=== PATIENT | male | born 1990 | race Two or more races ===

== ENCOUNTER 2017-02-23 11:34 | Inpatient (IN) | payer OTHER, MEDICAID ==
[2017-02-23 13:02] LABS: Add Diff/Slide Review? Slide Review Added; Comments Flag Yes; Hematocrit 44 % (42-52); Mean Corpuscular HGB Conc 34 g/dl (31-36); Mean Corpuscular Hemoglobin 30 pg (27-31); Mean Corpuscular Volume 88 fL (80-94); Mean Platelet Volume 8 um3 (7.4-10.4); Red Blood Count 4.98 10^6/ul (4.0-5.4); Red Cell Distribution Width 12 % (10.5-15); White Blood Count 15.6 10^3/ul (3.5-10.8)
[2017-02-23] MEDS ORDERED: hydrOXYzine HCL TAB* 25 MG PO ONE (13:13)
[2017-02-23 13:14] LABS: Urine Bacteria Absent (Absent); Urine Bilirubin Negative (Negative); Urine Glucose Negative (Negative); Urine Nitrite Negative (Negative)
[2017-02-23] MEDS ORDERED: Acetaminophen TAB* 325 MG PO ONE (13:16)
[2017-02-23 13:18] LABS: ALT 112 U/L (7-52); AST 68 U/L (13-39); Albumin 4.7 g/dL (3.2-5.2); Alkaline Phosphatase 60 U/L (34-104); Anion Gap 9 mmol/L (2-11); Blood Urea Nitrogen 15 mg/dL (6-24); CO2 Carbon Dioxide 22 mmol/L (22-32); Calcium 9.9 mg/dL (8.6-10.3); Chloride 104 mmol/L (101-111); EGFR African American 99.6 (>60); EGFR Non-African American 77.5 (>60); Globulin 2.9 g/dL (2-4); Glucose 123 mg/dL (70-100); Potassium 3.7 mmol/L (3.5-5.0); Sodium 135 mmol/L (133-145); Total Protein 7.6 g/dL (6.4-8.9)
--- NOTE | 2017-02-23 13:19 | ED ---
Psychiatric Complaint - HPI Summary HPI Summary: 26 male presents to ED by police after finding him laying in the middle of the road. Patient then began expressing suicidal thoughts and then tried to run from police. Denies any pain or complaints other than headache at this time. States he usually takes medication for his bipolar/anxiety/depression + psych history however has been out of it and not taking it. Denies any alcohol or drug use after being asked a few times. Denies homicidal thoughts, hallucinations and hearing voices. Patient has not taken any medication today, states he takes Risperdal 4mg. Also state he has a hard time concentrating. Denies chest pain, difficulty breathing, abdominal pain, nausea and vomiting. Denies fever/chills, sore throat. Admits to cough sometimes productive with nasal congestion. No other complaints, just want his medications refilled as he is feeling anxious/depressed and having suicidal thoughts. Did not express a plan. Denies homicidal thoughts. Difficult historian. No other known PMHx. Used to have outpatient therapy but has not had any recently. Denies injury/trauma. Does use cigarettes. No recent long distance travel or calf pain/swelling. Also of note is 1-2 days of insomnia, per patient. - History Of Current Complaint Chief Complaint: EDMentalHealth Time Seen by Provider: 02/23/17 11:51 Hx Obtained From: Patient, Other: - police Onset/Duration: Gradual Onset, Lasting Weeks, Still Present, Worse Since Timing: Constant Character: Depressed, Anxious Aggravating Factor(s): Medication Non-compliance Alleviating Factor(s): Medication, Counseling Related History: Positive For: Prior Psychiatric Issues Has Suicidal: Reports: Thoughts. Denies: With A Plan, Demonstrates Gesture Has Homicidal: Denies: Thoughts, With A Plan Recent Stressor(s): not taking medication, patient did not express other stressors - Risk Factor(s) Completed Suicide Risk Factors: Male, White Wallisian - Allergies/Home Medications Allergies/Adverse Reactions: Allergies Allergy/AdvReac Type Severity Reaction Status Date / Time Haloperidol [From Haldol] Allergy Unknown Verified 02/23/17 11:40 Reaction Details PMH/Surg Hx/FS Hx/Imm Hx Endocrine/Hematology History: Denies: Hx Diabetes Cardiovascular History: Denies: Hx Hypertension Respiratory History: Denies: Hx Asthma Psychiatric History: Reports: Hx Depression, Hx Inpatient Treatment, Hx Community Mental Health Tx, Hx Schizophrenia, Hx Suicide Attempt, Hx of Violent Episodes Against Others, Hx Substance Abuse Denies: Hx Eating Disorder - Surgical History Surgery Procedure, Year, and Place: n/a - Immunization History Date of Tetanus Vaccine: unk Date of Influenza Vaccine: unk Immunizations Up to Date: Yes Infectious Disease History: No Infectious Disease History: Reports: Hx Hepatitis - HEP C+ Denies: Traveled Outside the [place] in Last 30 Days - Family History Known Family History: Positive: None, Other - mental health disorders - Social History Alcohol Use: None Alcohol Amount: quit drinking 2 months ago Hx Substance Use: Yes Substance Use Type: Reports: None Substance Use Comment - Amount & Last Used: quit heroin 3 months ago Hx Tobacco Use: Yes Smoking Status (MU): Light Every Day Tobacco Smoker Type: Cigarettes Have You Smoked in the Last Year: No Review of Systems Constitutional: Negative Eyes: Negative ENT: Negative Cardiovascular: Negative Positive: Cough Gastrointestinal: Negative Genitourinary: Negative Musculoskeletal: Negative Positive: Headache Positive: Anxious, Depressed, Other - suicidal ideation All Other Systems Reviewed And Are Negative: Yes Physical Exam Triage Information Reviewed: Yes Vital Signs On Initial Exam: Initial Vitals Temp Pulse Resp BP Pulse Ox 99.2 F 135 20 152/99 98 02/23/17 11:39 02/23/17 11:39 02/23/17 11:39 02/23/17 11:39 02/23/17 11:39 tachycardia and BP noted. improved to 100bpm and 139/70 Vital Signs Reviewed: Yes Appearance: Positive: Well-Appearing, No Pain Distress, Well-Nourished Skin: Positive: Warm, Skin Color Reflects Adequate Perfusion, Dry, Other - abrasion on foot noted. Negative: Cold, Numb, Cyanosis @, Jaundiced, Pale, Erythema @ Head/Face: Positive: Normal Head/Face Inspection Eyes: Positive: Normal, EOMI, ANSELMO, Conjunctiva Clear ENT: Positive: Hearing grossly normal, Pharynx normal, Nasal congestion, TMs normal, Uvula midline. Negative: TM bulging, TM dull, TM red, Tonsillar swelling, Tonsillar exudate Dental: Positive: Percussion Tenderness @ - maxillary b/l. Negative: Cervical Lymphadenopathy Neck: Positive: Supple, Nontender, No Lymphadenopathy Respiratory/Lung Sounds: Positive: Clear to Auscultation, Breath Sounds Present. Negative: Rales, Rhonchi, Wheezes Cardiovascular: Positive: Normal, RRR, Pulses are Symmetrical in both Upper and Lower Extremities. Negative: Murmur, Rub Abdomen Description: Positive: Nontender, No Organomegaly, Soft Bowel Sounds: Positive: Present Musculoskeletal: Positive: Normal, Strength/ROM Intact. Negative: Limited @, Interruption @, Pain @ Neurological: Positive: Normal, Sensory/Motor Intact, Alert, Oriented to Person Place, Time, CN Intact II-III, Reflexes Intact, NV Bundle Intact Distally, Normal Gait, Facial Symmetry, Speech Normal Psychiatric: Positive: Anxious - appears distracted, flat affect, difficult historian - Willa Coma Scale Best Eye Response: 4 - Spontaneous Best Motor Response: 6 - Obeys Commands Best Verbal Response: 4 - Confused Coma Scale Total: 15 Diagnostics - Vital Signs Vital Signs Temp Pulse Resp BP Pulse Ox 02/23/17 12:00 118 154/84 96 02/23/17 11:51 126 28 96 02/23/17 11:50 135/81 02/23/17 11:39 99.2 F 135 20 152/99 98 - Laboratory Lab Results: Lab Results 02/23/17 Range/Units 12:50 WBC 15.6 H (3.5-10.8) 10^3/ul RBC 4.98 (4.0-5.4) 10^6/ul Hgb 15.0 (14.0-18.0) g/dl Hct 44 (42-52) % MCV 88 (80-94) fL MCH 30 (27-31) pg MCHC 34 (31-36) g/dl RDW 12 (10.5-15) % Plt Count 255 (150-450) 10^3/ul MPV 8 (7.4-10.4) um3 Neut % (Auto) 85.1 H (38-83) % Lymph % (Auto) 7.6 L (25-47) % [place] % (Auto) 6.8 (1-9) % Eos % (Auto) 0.1 (0-6) % Baso % (Auto) 0.4 (0-2) % Absolute Neuts (auto) 13.3 H (1.5-7.7) 10^3/ul Absolute Lymphs (auto) 1.2 (1.0-4.8) 10^3/ul Absolute Monos (auto) 1.1 H (0-0.8) 10^3/ul Absolute Eos (auto) 0 (0-0.6) 10^3/ul Absolute Basos (auto) 0.1 (0-0.2) 10^3/ul Absolute Nucleated RBC 0.01 10^3/ul Nucleated RBC % 0 Result Diagrams: 02/23/17 12:50 02/23/17 12:50 Lab Statement: Any lab studies that have been ordered have been reviewed, and results considered in the medical decision making process. - Radiology chest Xray Interpretation: No Acute Changes - NO EVIDENCE FOR ACTIVE CARDIOPULMONARY DISEASE. Radiology Interpretation Completed By: Radiologist - and myself - EKG EKG Cardiac Rate: NL EKG Rhythm: Sinus Rhythm ST Segment: Normal Ectopy: None EKG Interpretation: NSR, normal early repol pattern slight ST elevation EKG Comparison: No Significant Change Re-Evaluation - Re-Evaluation First Eval Re-Evaluation Time: 14:20 Change: Unchanged - updated on labs and imaging results. still without complaint. will give risperdal. Course/Dx - Course Course Of Treatment: labs and urinalysis obtained. chest xray and EKG obtained due to patient complaint of cough, elevated WBC with left shift and vital signs upon arrival. labs unremarkable other than WBC elevation with left shift. normal urinalysis. EKG NSR and no changes from previous taken EKG from 2012. given tylenol for headache and atarax and then ativan to help with anxiety. also given prescribed dose of risperdal. No drug use present in urine. normal chest xray. due to patient white count elevation with left shift, complaint of sinus pressure and cough, and no other complaints or findings, will treat with augmentin for sinusitis/URI 875mg BID [id number]. Continue tylenol and ibuprofen for fever. no concern for other etiology at this time as no complaints and no PE findings. patient was cleared for mental health evaluation. patient will be signed out to Grace Bahena PA-C at shift change. pending psych eval and disposition. - Differential Dx/Clinical Impression Differential Diagnosis/HQI/PQRI: Positive: Acute Psychosis, Anxiety, Bipolar Disorder, Depression, Suicide Attempt, Suicidal Ideation, Other - URI, bronchitis, pneumonia, sinusitis Provider Diagnosis: Suicidal ideation, Sinusitis, Upper respiratory infection - Physician Notifications Discussed Care Of Patient With: Grace SHIPLEY at shift change Patient Is Medically Stable For: Psych Evaluation Discharge - Discharge Plan Condition: Stable Disposition: OTHER Discharge Disposition Comment: signed out to Grace Bahena PA-C at shift change pending psych eval and dispo Referrals: Non Staff,Doctor [Primary Care Provider] - Additional Instructions: Take Augmentin 875mg twice daily for 10 days. Continue tylenol/ibuprofen as needed for fever.
[2017-02-23 13:27] LABS: Acetaminophen < 15 mcg/mL; Alcohol < 10 mg/dL (<10); Salicylate < 2.50 mg/dL (<30)
[2017-02-23 13:38] LABS: Benzodiazepine Urine Screen None Detected (None Detect)
[2017-02-23 13:42] LABS: TSH (Thyroid Stimulating Horm) 0.95 mcIU/mL (0.34-5.60)
--- NOTE | 2017-02-23 14:06 | RAD ---
INDICATION: Cough and leukocytosis. COMPARISON: There are no prior studies available for comparison. TECHNIQUE: Dual-energy PA and lateral views of the chest were obtained. FINDINGS: The heart is within normal limits in size. Mediastinal and hilar contours appear within normal limits. The lungs are clear. No pleural effusion is present. IMPRESSION: NO EVIDENCE FOR ACTIVE CARDIOPULMONARY DISEASE.
[2017-02-23] MEDS ORDERED: Amoxicillin/Clavulanate TAB* 500 MG PO ONE (14:16)
[2017-02-23] MEDS ORDERED: risperiDONE TAB* 2 MG PO ONE (14:16)
[2017-02-23] MEDS ORDERED: LORazepam TAB(*) 1 MG PO ONE (14:22)
[2017-02-23] MEDS ORDERED: risperiDONE TAB* 1 MG ONE (14:25)
[2017-02-23 14:49] LABS: C Reactive Protein 3.93 mg/L (< 5.00)
[2017-02-23] MEDS ORDERED: Mouth Piece, Nicotine* 1 EACH CARTRIDGE INH SCH (22:39)
[2017-02-23] MEDS ORDERED: Nicotine GUM* 2 MG PO PRN (22:39)
[2017-02-23] MEDS ORDERED: Nicotine Patch Removal NOTE PATCH OFF SCH (22:39)
[2017-02-23] MEDS ORDERED: Acetaminophen TAB* 325 MG PO PRN (22:39)
[2017-02-23] MEDS ORDERED: Al Hydrox/Mg Hydrox/Simet LIQ* 30 ML UDC PO PRN (22:39)
[2017-02-23] MEDS: Amoxicillin PO (*) 500 MG CAP PO SCH (23:18)
[2017-02-24] MEDS: risperiDONE TAB* 2 MG PO SCH (09:37)
[2017-02-24] MEDS: Amoxicillin PO (*) 500 MG CAP PO SCH ×2 (09:37→20:49)
[2017-02-24] MEDS: Vitamin THERAPEUTIC TAB PO SCH (09:37)
[2017-02-24] MEDS: Nicotine PATCH 21 MG/24 HR* PATCH TRANSDERM SCH (10:27)
[2017-02-24] MEDS: Nicotine Inhaler* 10 MG AMP INH PRN ×2 (14:50→20:49)
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
[2017-02-25] MEDS ORDERED: diPHENhydraMINE PO* 50 MG PO PRN (01:21)
[2017-02-25 08:37] VITALS: BP 102/54
[2017-02-25] MEDS: Amoxicillin PO (*) 500 MG CAP PO SCH (09:09)
[2017-02-25] MEDS: Nicotine Inhaler* 10 MG AMP INH PRN ×2 (09:09→11:22)
[2017-02-25] MEDS: Vitamin THERAPEUTIC TAB PO SCH (09:10)
[2017-02-25] MEDS: Nicotine PATCH 21 MG/24 HR* PATCH TRANSDERM SCH (09:10)
[2017-02-25] MEDS: risperiDONE TAB* 2 MG PO SCH (09:10)
--- NOTE | 2017-02-25 11:43 | PN ---
[facility]: Group Therapy Note - Service Type Service Type: 78025 Group Psychotherapy - Cognitive Behavioral Group Therapy ( CBT):Patient attended CBT programming this morning and presented with flat affect that did not vary with discussion. Although responsive to direct prompts to respond to questions, patient did not engage in spontaneous conversation.
--- NOTE | 2017-02-26 05:44 | DS ---
DISCHARGE SUMMARY: DATE OF ADMISSION: 02/23/17 DATE OF DISCHARGE: 02/25/17 DISCHARGE DIAGNOSES: [place] I: 1. Schizophrenia. 2. Cannabis use disorder, in sustained remission. [place] II: Antisocial personality traits by history. [place] III: Hepatitis C, history of knee surgery. [place] IV: Severe access to health care stressors. [place] V: At the time of admission was 35 and at the time of discharge was 60. CONDITION AT THE TIME OF DISCHARGE: Improved. The patient is no longer paranoid or demonstrating an y signs of inability to care for himself. In fact, he has been safe on all checks participating in [place] and [place] activities. He has been eating, drinking, bathing, and taking medications appropria tely. He is tolerating his risperidone therapy quite well and is agreeable to continuing to take thi s on an outpatient basis. The patient has a job at a local [employer] and indicates that he has to work a shift at 4 o'clock this afternoon. We have confirmed that he is no longer receiving services through the [facility] but is agreeable to receiving followup care at the [facility] and we have made appropriate referrals. The patient is appropriate ly requesting discharge and we feel that further inpatient care would be of low utility and we furthe r feel that the patient could be successfully treated in a less restrictive setting. MENTAL STATUS EXAM: At the time of discharge, the patient is a young, dark skinned white male with d ark brown hair, wearing T-shirt and jeans. He is calm, cooperative, and easy to establish a rapport with. Speech has a normal rate, tone, and volume and there is no further evidence of latency. Eye c ontact is good. Mood is euthymic with a full affect. Thought process is linear and goal directed. T hought content is significant for his desire to be discharged this afternoon so that he can make it t o his [employer] shift. He denies suicidal or homicidal ideations. He denies auditory or visual h allucinations. There does not appear to be any current evidence of psychotic thought process. Insig ht and judgment are fair given his willingness to follow up with outpatient [facility] ervices. Cognitively, he is awake and alert with what would appear to be an average intellect. DISCHARGE INSTRUCTIONS: A. Medications: He is taking risperidone 2 mg p.o. daily. He also takes am oxicillin 500 mg p.o. b.i.d. for the next 5 days for urinary tract infection. B. Diet: Regular. C. Activities: As tolerated. The patient has been offered continued nicotine replacement therapy; however, he is declining this indicating that his preference is to continue smoking for the time miguel aragon Despite this, we have gone ahead and given him the [place] Smokers' Quitline, which is . There are no laboratory or diagnostic studies pending at the time of discharge. D. Followup care: The patient will be seen for intake at the [facility] within 5 days of discharge. E. Substance abuse followup: Nonapplicable given the fact that the patient's cannabis abuse appears to be in remission. HOSPITAL COURSE: Part-A. Reason for admission: The patient is a 26-year-old single white male with a history of schizophrenia and a remote history of cannabinoid abuse and antisocial personality disor kirill, who was brought in to the emergency room by the police on a 9.41 legal status after being discov ered lying down in the middle of the road. Initially when questioned, he told the police that he need ed medications for his mental illness; however, he then started running away. Later when he was re- apprehended, he told the police that he wanted to kill himself. The patient has had inconsistent med ication compliance since his last hospitalization in December of 2015 here at [facility]. Apparently, he spent close to 2 months in [facility] and then returned to this area in [facility] of this year. He told me at the time of admission, that he has a job working in a local [employer] and he has been living in an apartment in [place], [place]. He was a somewhat reluctant hist orian at the time of admission and could not give me much detail on his support system or his involve ment with family or friends. Many of his responses were vague without much spontaneity or descriptiv eness. We know that he used to be served by the [facility] treatment [facility]; however, the on- call clinician through that organization revealed that he is not currently on their roll. The patien t denied suicidal or homicidal ideations to us but he was noticeably guarded and would make poor eye contact. He is admitting to minimal alcohol use "whenever I have money" but denies any other substan ce of abuse recently and his urine drug screen was negative for all substances tested including alcoh ol. Apparently, he was started on an antibiotic for urinary tract infection in the emergency room. Symptomatically, he did endorse disorganized thinking and paranoia but he denied depressed mood or th oughts of harming himself or others. Part-B. Psychiatric treatment rendered: The patient was admitted to the [facility] where he was placed on q.15-minute checks for his own safety. We continued the amoxicillin 500 mg p.o. b.i.d. that he was started on in the emergency room and we are recommending 5 further days of th is at the time of discharge. In addition, per his request, we placed him back on risperidone 2 mg da noble. The patient had already been denying symptoms of suicidality at his time of admission and he co ntinued to do so throughout his treatment course here. He was safe on all checks and we never saw an y evidence of disorganized or bizarre behavior. I did note when I initially evaluated him that he wa s paranoid with poor eye contact. Seeing him on the date of discharge, however, this has completely resolved. He makes good eye contact, appears to be euthymic, future oriented. He is stating that he has to get back to his job. The patient does not have any family members living locally other than an aunt and uncle, who we were not able to contact. He is agreeable with outpatient treatment at the [facility] and we are sending his prescriptions to the [facility] which is right next door to that clinic. It is also incidentally up the road from where the sam flores is currently employed. At this time, we see no further justification for involuntary treatment and feel that the patient can safely be treated in a less restrictive setting. There is limited utility to further inpatient care and for that reason we are discharging him back to the community. It is no table that the patient declined to have the labs drawn specifically for his metabolic studies and the refore lipid panel and hemoglobin A1c were not tested at this time. [id number]/[facility] #: [id number]
== END 2017-02-25 14:34 | disposition home or self-care (01) | DRG 750 ==
LOC: ED 11:34 → BSU 22:37
PROVIDERS: ADMIT Psychiatry & Neurology Psychiatry; ATTEND Psychiatry & Neurology Psychiatry
DX: F20.9 Schizophrenia, unspecified (principal); B19.20 Unspecified viral hepatitis C without hepatic coma; N39.0 Urinary tract infection, site not specified; F12.11 Cannabis abuse, in remission; F17.210 Nicotine dependence, cigarettes, uncomplicated; F60.2 Antisocial personality disorder; Z88.8 Allergy status to other drugs, medicaments and biological substances; Z81.8 Family history of other mental and behavioral disorders
CPT/HCPCS: 36415; 71020; 80053; 80307; 80320; 80329; 81003; 81015; 84443; 85025; 86140; 90853; 93005; 99222; 99238; A9270-GY; G0480

== ENCOUNTER 2017-03-23 13:21 | Emergency (ER) | payer MEDICAID, OTHER ==
[2017-03-23 17:59] LABS: Hematocrit 40 % (42-52); Hemoglobin 13.6 g/dl (14.0-18.0); Mean Corpuscular HGB Conc 34 g/dl (31-36); Mean Corpuscular Hemoglobin 30 pg (27-31); Mean Corpuscular Volume 89 fL (80-94); Mean Platelet Volume 8 um3 (7.4-10.4); Red Blood Count 4.48 10^6/ul (4.0-5.4); Red Cell Distribution Width 13 % (10.5-15); White Blood Count 7.3 10^3/ul (3.5-10.8)
[2017-03-23 18:13] LABS: ALT 73 U/L (7-52); AST 67 U/L (13-39); Acetaminophen < 15 mcg/mL; Albumin 3.7 g/dL (3.2-5.2); Alcohol < 10 mg/dL (<10); Alkaline Phosphatase 47 U/L (34-104); Anion Gap 7 mmol/L (2-11); BUN/Creatinine Ratio 11.6 (8-20); Blood Urea Nitrogen 10 mg/dL (6-24); CO2 Carbon Dioxide 27 mmol/L (22-32); Calcium 8.8 mg/dL (8.6-10.3); Chloride 106 mmol/L (101-111); EGFR African American 139.3 (>60); EGFR Non-African American 108.4 (>60); Globulin 2.4 g/dL (2-4); Glucose 122 mg/dL (70-100); Potassium 3.6 mmol/L (3.5-5.0); Salicylate < 2.50 mg/dL (<30); Sodium 140 mmol/L (133-145); Total Protein 6.1 g/dL (6.4-8.9)
[2017-03-23 18:27] LABS: TSH (Thyroid Stimulating Horm) 2.07 mcIU/mL (0.34-5.60)
[2017-03-23 19:14] LABS: Urine Bilirubin Negative (Negative); Urine Glucose Negative (Negative); Urine Nitrite Negative (Negative)
[2017-03-23 19:31] LABS: Benzodiazepine Urine Screen None Detected (None Detect)
[2017-03-23] MEDS ORDERED: risperiDONE TAB* 1 MG PO ONE (21:06)
--- NOTE | 2017-03-23 21:11 | ED ---
Progress - Progress Note Progress Note: Pt signed out by Preethi Ko PA-C. He was reported to come in w/ request for more risperidone - was seen here last month and provided with a 1 month supply and advised to f/u w/ [facility]. The pharmacy is closed so there's no way to see if pt has picked this up yet - he is saying he hasn't. A friend who was contacted by is also saying "he's been off of his meds". His affect is inappropriate as he appears giddy and overly enthusiastic, tangential thoughts but denies SI/HI. Per , commuincation confirms he is going to a familiar and safe residence [facility]. Dr. Stout offered voluntary admission but pt declined. Dr. Stout is okay with pt being d/c'd w/ a 3 days supply of risperdone (he will be unable to get this at pharmacy as it's weekend and holiday). 1 dose ordered here tonight and 2 caps to go. Pt aware that his rx is also most likely still at pharmacy from 1 month ago and he may go to retrieve it there once it opens. GEN: A&O, NAD HEENT: sclera anicteric, mucosa moist CARDIAC: RRR PULM: breathing easily CLAUDY: moving well w/o restrictions NEURO: appears coordinated Psych: as above Assessment: schizoaffective d/o Plan: short course of risperdone and f/u w/ outpt mental health Dispo: Home Condition: vitals stable, psych gaurded - Consult/PCP Time Called: 18:35 Course/Dx - Diagnoses Provider Diagnoses: Schizoaffective disorder
[2017-03-23 21:35] VITALS: BP 127/62
[2017-03-23] MEDS ORDERED: risperiDONE TAB* 2 MG PO ONE (22:00)
--- NOTE | 2017-03-24 08:59 | ED ---
Psychiatric Complaint - HPI Summary HPI Summary: patient presents to the ED with request for medication refill. he states he has been off his risperdone x 2 months, although after searching patient name, he was noted to have been here in the ED last month and given 1 month supply of 2mg risperidone. He states he normally takes 4mg. When asked if he would like a psych eval, he states "sure." Denies SI/HI or self harm. History of attempted suicide many years ago by OD on ambien. He states he needs to be on his medications because he was found in the middle of the street. He appears to be distracted and OMHx is positive for schizoaffective. He denies any other health problems. - History Of Current Complaint Chief Complaint: EDMentalHealth Time Seen by Provider: 03/23/17 15:04 Hx Obtained From: Patient, Medical Records Hx From Patient Unobtainable Due To: Altered Mental Status Onset/Duration: Gradual Onset, Still Present Timing: Constant Severity Initially: Moderate Severity Currently: Moderate Aggravating Factor(s): Medication Non-compliance, Therapy Non-compliance Alleviating Factor(s): Medication Associated Signs And Symptoms: Positive: Sleep Disturbance, Social Withdrawal, Social Isolation Related History: Positive For: Prior Psychiatric Issues Has Suicidal: Reports: Has Prior Attempt(s) - Risk Factor(s) Completed Suicide Risk Factors: Male - Allergies/Home Medications Allergies/Adverse Reactions: Allergies Allergy/AdvReac Type Severity Reaction Status Date / Time Haloperidol [From Haldol] Allergy Unknown Verified 02/23/17 11:40 Reaction Details PMH/Surg Hx/FS Hx/Imm Hx Previously Healthy: Yes Endocrine/Hematology History: Denies: Hx Diabetes Cardiovascular History: Denies: Hx Hypertension Respiratory History: Denies: Hx Asthma Sensory History: Denies: Hx Cataracts, Hx Contacts or Glasses, Hx Eye Injury, Hx Eye Prosthesis, Hx Glaucoma, Hx Hearing Aid Opthamlomology History: Denies: Hx Cataracts, Hx Contacts or Glasses, Hx Eye Injury, Hx Eye Prosthesis, Hx Glaucoma Psychiatric History: Reports: Hx Depression, Hx Inpatient Treatment, Hx Community Mental Health Tx, Hx Schizophrenia, Hx Suicide Attempt, Hx Substance Abuse Denies: Hx Eating Disorder, Hx of Violent Episodes Against Others - Surgical History Surgery Procedure, Year, and Place: Patient reports past hx of knee injury related to a back-flip incident 2014. - Immunization History Date of Tetanus Vaccine: unk Date of Influenza Vaccine: unk Hx Pertussis Vaccination: No Immunizations Up to Date: Unable to Obtain/Confirm Infectious Disease History: No Infectious Disease History: Reports: Hx Hepatitis - HEP C+ Denies: Traveled Outside the US in Last 30 Days - Family History Known Family History: Positive: None, Other - mental health disorders - Social History Occupation: Unemployed Lives: Alone Alcohol Use: Occasionally Alcohol Amount: quit drinking 2 months ago Hx Substance Use: Yes Substance Use Type: Reports: Other Substance Use Comment - Amount & Last Used: Patient using heroin or cocaine within the last 3 months Hx Tobacco Use: Yes Smoking Status (MU): Light Every Day Tobacco Smoker Type: Cigarettes Have You Smoked in the Last Year: No Review of Systems Constitutional: Negative Negative: Fever, Chills, Fatigue, Skin Diaphoresis Eyes: Negative Cardiovascular: Negative Respiratory: Negative Positive: no symptoms reported, see HPI Musculoskeletal: Negative Neurological: Negative Positive: Other - distracted and unable to concentrate - placeing himself in harms way All Other Systems Reviewed And Are Negative: Yes Physical Exam Triage Information Reviewed: Yes Vital Signs On Initial Exam: Initial Vitals Temp Pulse Resp BP Pulse Ox 98.5 F 79 17 117/62 96 03/23/17 14:09 03/23/17 14:09 03/23/17 14:09 03/23/17 14:09 03/23/17 14:09 Vital Signs Reviewed: Yes Appearance: Positive: Well-Appearing, No Pain Distress Skin: Positive: Skin Color Reflects Adequate Perfusion Head/Face: Positive: Normal Head/Face Inspection Eyes: Positive: EOMI, ANSELMO, Conjunctiva Clear Neck: Positive: No Lymphadenopathy Respiratory/Lung Sounds: Positive: Clear to Auscultation, Breath Sounds Present Cardiovascular: Positive: RRR, Pulses are Symmetrical in both Upper and Lower Extremities Musculoskeletal: Positive: Strength/ROM Intact Neurological: Positive: Speech Normal Psychiatric: Positive: Other - distracted and unable to concentrate - placeing himself in harms way AVPU Assessment: Alert - Willa Coma Scale Best Eye Response: 4 - Spontaneous Best Motor Response: 6 - Obeys Commands Best Verbal Response: 5 - Oriented Coma Scale Total: 15 Diagnostics - Vital Signs Vital Signs Temp Pulse Resp BP Pulse Ox 03/23/17 21:31 98.8 F 74 127/62 99 03/23/17 14:09 98.5 F 79 17 117/62 96 - Laboratory Lab Results: Lab Results 03/23/17 03/23/17 03/23/17 Range/Units 17:20 17:20 18:39 WBC 7.3 (3.5-10.8) 10^3/ul RBC 4.48 (4.0-5.4) 10^6/ul Hgb 13.6 L (14.0-18.0) g/dl Hct 40 L (42-52) % MCV 89 (80-94) fL MCH 30 (27-31) pg MCHC 34 (31-36) g/dl RDW 13 (10.5-15) % Plt Count 233 (150-450) 10^3/ul MPV 8 (7.4-10.4) um3 Neut % (Auto) 50.0 (38-83) % Lymph % (Auto) 37.9 (25-47) % [place] % (Auto) 8.3 (1-9) % Eos % (Auto) 3.0 (0-6) % Baso % (Auto) 0.8 (0-2) % Absolute Neuts (auto) 3.7 (1.5-7.7) 10^3/ul Absolute Lymphs (auto) 2.8 (1.0-4.8) 10^3/ul Absolute Monos (auto) 0.6 (0-0.8) 10^3/ul Absolute Eos (auto) 0.2 (0-0.6) 10^3/ul Absolute Basos (auto) 0.1 (0-0.2) 10^3/ul Absolute Nucleated RBC 0.01 10^3/ul Nucleated RBC % 0.1 Sodium 140 (133-145) mmol/L Potassium 3.6 (3.5-5.0) mmol/L Chloride 106 (101-111) mmol/L Carbon Dioxide 27 (22-32) mmol/L Anion Gap 7 (2-11) mmol/L BUN 10 (6-24) mg/dL Creatinine 0.86 (0.67-1.17) mg/dL Est GFR ( Amer) 139.3 (>60) Est GFR (Non-Af Amer) 108.4 (>60) BUN/Creatinine Ratio 11.6 (8-20) Glucose 122 H (70-100) mg/dL Calcium 8.8 (8.6-10.3) mg/dL Total Bilirubin 0.30 (0.2-1.0) mg/dL AST 67 H (13-39) U/L ALT 73 H (7-52) U/L Alkaline Phosphatase 47 (34-104) U/L Total Protein 6.1 L (6.4-8.9) g/dL Albumin 3.7 (3.2-5.2) g/dL Globulin 2.4 (2-4) g/dL Albumin/Globulin Ratio 1.5 (1-3) TSH 2.07 (0.34-5.60) mcIU/mL Urine Color Urine Appearance Urine pH (5-9) Ur Specific Preston (1.010-1.030) Urine Protein (Negative) Urine Ketones (Negative) Urine Blood (Negative) Urine Nitrate (Negative) Urine Bilirubin (Negative) Urine Urobilinogen (Negative) Ur Leukocyte Esterase (Negative) Urine Glucose (Negative) Salicylates < 2.50 (<30) mg/dL Urine Opiates Screen None detected (None Detect) Acetaminophen < 15 mcg/mL Ur Barbiturates Screen None detected (None Detect) Ur Phencyclidine Scrn None detected (None Detect) Ur Amphetamines Screen None detected (None Detect) U Benzodiazepines Scrn None detected (None Detect) Urine Cocaine Screen None detected (None Detect) U Cannabinoids Screen None detected (None Detect) Serum Alcohol < 10 (<10) mg/dL 03/23/17 Range/Units 18:39 WBC (3.5-10.8) 10^3/ul RBC (4.0-5.4) 10^6/ul Hgb (14.0-18.0) g/dl Hct (42-52) % MCV (80-94) fL MCH (27-31) pg MCHC (31-36) g/dl RDW (10.5-15) % Plt Count (150-450) 10^3/ul MPV (7.4-10.4) um3 Neut % (Auto) (38-83) % Lymph % (Auto) (25-47) % [place] % (Auto) (1-9) % Eos % (Auto) (0-6) % Baso % (Auto) (0-2) % Absolute Neuts (auto) (1.5-7.7) 10^3/ul Absolute Lymphs (auto) (1.0-4.8) 10^3/ul Absolute Monos (auto) (0-0.8) 10^3/ul Absolute Eos (auto) (0-0.6) 10^3/ul Absolute Basos (auto) (0-0.2) 10^3/ul Absolute Nucleated RBC 10^3/ul Nucleated RBC % Sodium (133-145) mmol/L Potassium (3.5-5.0) mmol/L Chloride (101-111) mmol/L Carbon Dioxide (22-32) mmol/L Anion Gap (2-11) mmol/L BUN (6-24) mg/dL Creatinine (0.67-1.17) mg/dL Est GFR ( Amer) (>60) Est GFR (Non-Af Amer) (>60) BUN/Creatinine Ratio (8-20) Glucose (70-100) mg/dL Calcium (8.6-10.3) mg/dL Total Bilirubin (0.2-1.0) mg/dL AST (13-39) U/L ALT (7-52) U/L Alkaline Phosphatase (34-104) U/L Total Protein (6.4-8.9) g/dL Albumin (3.2-5.2) g/dL Globulin (2-4) g/dL Albumin/Globulin Ratio (1-3) TSH (0.34-5.60) mcIU/mL Urine Color Yellow Urine Appearance Cloudy Urine pH 7.0 (5-9) Ur Specific Preston 1.018 (1.010-1.030) Urine Protein Negative (Negative) Urine Ketones Negative (Negative) Urine Blood Negative (Negative) Urine Nitrate Negative (Negative) Urine Bilirubin Negative (Negative) Urine Urobilinogen Negative (Negative) Ur Leukocyte Esterase Negative (Negative) Urine Glucose Negative (Negative) Salicylates (<30) mg/dL Urine Opiates Screen (None Detect) Acetaminophen mcg/mL Ur Barbiturates Screen (None Detect) Ur Phencyclidine Scrn (None Detect) Ur Amphetamines Screen (None Detect) U Benzodiazepines Scrn (None Detect) Urine Cocaine Screen (None Detect) U Cannabinoids Screen (None Detect) Serum Alcohol (<10) mg/dL Result Diagrams: 03/23/17 17:20 03/23/17 17:20 Lab Statement: Any lab studies that have been ordered have been reviewed, and results considered in the medical decision making process. Course/Dx - Course Course Of Treatment: Discussed case with DR. Nowak who suggests psych eval prior to placing patient on medications. He has been seen here numerous times and staff are familiar. Upon awaiting psych evaluation, he is signed out to [facility]. - Differential Dx/Clinical Impression Provider Diagnosis: Schizoaffective disorder Discharge - Discharge Plan Condition: Guarded Disposition: HOME Prescriptions: risperiDONE TAB* [Risperdal*] 2 mg PO DAILY #3 tab Patient Education Materials: Risperidone (By mouth), Schizoaffective Disorder ( ED) Referrals: No Primary Care Phys,NOPCP [Primary Care Provider] - Additional Instructions: Follow-up with mental health team as directed Take medications as directed *If you develop suicidal ideations or homicidal ideations or feel unsafe in any way, return to the ED
== END 2017-03-23 22:00 | disposition home or self-care (01) ==
LOC: ED 13:21
DX: F25.9 Schizoaffective disorder, unspecified (principal); F17.210 Nicotine dependence, cigarettes, uncomplicated; Z88.8 Allergy status to other drugs, medicaments and biological substances
CPT/HCPCS: 36415; 80053; 80307; 80320; 80329; 81003; 84443; 85025; 99284; A9270-GY; G0480

== ENCOUNTER 2017-03-26 22:46 | Inpatient (IN) | payer OTHER, MEDICAID ==
[2017-03-26] MEDS ORDERED: risperiDONE TAB* 2 MG PO ONE (23:25)
--- NOTE | 2017-03-26 23:32 | ED ---
Psychiatric Complaint - HPI Summary HPI Summary: 26M presents for medication refill. He states he has not been taking his medication as needs a refill. He does not know what medication he is on. He was seen here three days ago and given three doses of his pysch medication which he claims he took. He denies any SI/HI. He voices no compliant at this time. He denies hearing any voices. He states he has been trying to stay in [place] but sometimes he states outside of [place] with a friend. He states he has been following up with his psychiatrist. patient is voluntary and would like a mental health exam. He has only been using marijuana but denies any other drug or ETOH use. - History Of Current Complaint Chief Complaint: EDMentalHealth Time Seen by Provider: 03/26/17 23:07 - Allergies/Home Medications Allergies/Adverse Reactions: Allergies Allergy/AdvReac Type Severity Reaction Status Date / Time Haloperidol [From Haldol] Allergy Unknown Verified 03/26/17 22:53 Reaction Details PMH/Surg Hx/FS Hx/Imm Hx Endocrine/Hematology History: Denies: Hx Diabetes Cardiovascular History: Denies: Hx Hypertension Respiratory History: Denies: Hx Asthma Sensory History: Denies: Hx Cataracts, Hx Contacts or Glasses, Hx Eye Injury, Hx Eye Prosthesis, Hx Glaucoma, Hx Hearing Aid Opthamlomology History: Denies: Hx Cataracts, Hx Contacts or Glasses, Hx Eye Injury, Hx Eye Prosthesis, Hx Glaucoma Psychiatric History: Reports: Hx Depression, Hx Inpatient Treatment, Hx Community Mental Health Tx, Hx Schizophrenia, Hx Suicide Attempt, Hx Substance Abuse Denies: Hx Eating Disorder, Hx of Violent Episodes Against Others - Surgical History Surgery Procedure, Year, and Place: Patient reports past hx of knee injury related to a back-flip incident 2013. - Immunization History Date of Tetanus Vaccine: unk Date of Influenza Vaccine: unk Infectious Disease History: No Infectious Disease History: Reports: Hx Hepatitis - HEP C+ Denies: Traveled Outside the US in Last 30 Days - Family History Known Family History: Positive: None, Other - mental health disorders - Social History Alcohol Use: Occasionally Alcohol Amount: quit drinking 2 months ago Hx Substance Use: Yes Substance Use Type: Reports: Other Substance Use Comment - Amount & Last Used: Patient using heroin or cocaine within the last 3 months Hx Tobacco Use: Yes Smoking Status (MU): Light Every Day Tobacco Smoker Type: Cigarettes Have You Smoked in the Last Year: No Review of Systems Negative: Fever Negative: Chest Pain Negative: Shortness Of Breath Positive: Other - medication refill All Other Systems Reviewed And Are Negative: Yes Physical Exam Triage Information Reviewed: Yes Vital Signs On Initial Exam: Initial Vitals Temp Pulse Resp BP Pulse Ox 99.2 F 118 20 152/94 96 03/26/17 22:49 03/26/17 22:49 03/26/17 22:49 03/26/17 22:49 03/26/17 22:49 Vital Signs Reviewed: Yes Appearance: Positive: Well-Appearing Skin: Positive: Warm, Dry Head/Face: Positive: Normal Head/Face Inspection Eyes: Positive: Normal, Conjunctiva Clear Respiratory/Lung Sounds: Positive: Clear to Auscultation, Breath Sounds Present Cardiovascular: Positive: Normal, RRR Abdomen Description: Positive: Nontender, Soft Bowel Sounds: Positive: Present Musculoskeletal: Positive: Normal Neurological: Positive: Normal Psychiatric: Positive: Other - distracted Diagnostics - Vital Signs Vital Signs Temp Pulse Resp BP Pulse Ox 03/26/17 22:49 99.2 F 118 20 152/94 96 - Laboratory Result Diagrams: 03/26/17 23:18 03/26/17 23:15 Lab Statement: Any lab studies that have been ordered have been reviewed, and results considered in the medical decision making process. - Radiology chest Xray Interpretation: No Acute Changes Radiology Interpretation Completed By: ED Physician Re-Evaluation - Re-Evaluation First Eval Re-Evaluation Time: 00:13 Comment: wbc elevated, patient has been having a cough so will get chest xray. Course/Dx - Course Course Of Treatment: 26M presents for medication refill. He states he has not been taking his medication as needs a refill. He does not know what medication he is on. He was seen here three days ago and given three doses of his pysch medication which he claims he took. He denies any SI/HI. He voices no compliant at this time. He denies hearing any voices. He states he has been trying to stay in [place] but sometimes he states outside of [place] with a friend. He states he has been following up with his psychiatrist. normal PE. was skipped down hallway to get into room. labs wbc 15 patient complain only off cough. chest xray normal so likely viral. patient is medically clear for MHE. patient signed out to dr avila pending MHE - Differential Dx/Clinical Impression Differential Diagnosis/HQI/PQRI: Positive: Acute Psychosis, Depression, Schizophrenia Provider Diagnosis: Schizophrenia Discharge - Discharge Plan Condition: Stable Disposition: OTHER Discharge Disposition Comment: signed out to dr avila pending [facility]HE Referrals: No Primary Care Phys,NOPCP [Primary Care Provider] -
[2017-03-26 23:33] LABS: ABS Basophils 0 10^3/ul (0-0.2); ABS Eosinophils 0 10^3/ul (0-0.6); ABS Lymphocytes 1.6 10^3/ul (1.0-4.8); ABS Monocytes 0.8 10^3/ul (0-0.8); ABS Neutrophils 12.6 10^3/ul (1.5-7.7); ABS Nucleated RBC 0 10^3/ul; Eosinophil % 0.2 % (0-6); Hematocrit 46 % (42-52); Hemoglobin 15.6 g/dl (14.0-18.0); Lymphocyte % 10.4 % (25-47); Mean Corpuscular HGB Conc 34 g/dl (31-36); Mean Corpuscular Hemoglobin 31 pg (27-31); Mean Corpuscular Volume 90 fL (80-94); Mean Platelet Volume 8 um3 (7.4-10.4); Nucleated Red Blood Cells % 0; Platelet Count 279 10^3/ul (150-450); Red Cell Distribution Width 12 % (10.5-15)
[2017-03-26 23:36] LABS: Urine Appearance Clear; Urine Blood Negative (Negative); Urine Color Yellow; Urine Ketones Negative (Negative); Urine Protein Negative (Negative); Urine Specific Gravity 1.024 (1.010-1.030); Urine Urobilinogen Negative (Negative)
[2017-03-26 23:53] LABS: EGFR Non-African American 94.3 (>60)
[2017-03-27] MEDS ORDERED: diPHENhydraMINE PO* 50 MG ONE (02:54)
[2017-03-27] MEDS ORDERED: chlorproMAZINE TAB* 50 MG ONE (02:55)
[2017-03-27] MEDS ORDERED: Acetaminophen TAB* 325 MG PO PRN (03:33)
[2017-03-27] MEDS ORDERED: chlorproMAZINE TAB* 50 MG Q6H PRN AGITATION PO (03:33)
[2017-03-27] MEDS ORDERED: Al Hydrox/Mg Hydrox/Simet LIQ* 30 ML UDC PO PRN (03:33)
[2017-03-27] MEDS ORDERED: Mouth Piece, Nicotine* 1 EACH CARTRIDGE INH SCH (03:36)
[2017-03-27] MEDS ORDERED: Nicotine Inhaler* 10 MG AMP INH PRN (03:36)
[2017-03-27] MEDS ORDERED: Nicotine GUM* 2 MG PO PRN (03:36)
--- NOTE | 2017-03-27 08:05 | RAD ---
INDICATION: Cough. History of tobacco use. COMPARISON: February 23, 2017 TECHNIQUE: Dual energy PA and routine lateral views of the chest were obtained. REPORT: Clear lungs and pleural spaces. Negative for pneumothorax. The heart, pulmonary vasculature, and mediastinal contours are unremarkable. Unremarkable osseous structures and soft tissue contours. IMPRESSION: No evidence for pneumonia or a focal pulmonary lesion. Negative exam.
[2017-03-27] MEDS: Vitamin THERAPEUTIC TAB PO SCH (08:47)
[2017-03-27] MEDS ORDERED: risperiDONE TAB* 2 MG PO SCH (09:00)
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
--- NOTE | 2017-03-27 15:45 | RAD ---
Indication: Right hand pain. 4 views of the right hand demonstrates no fracture. No other bone or joint abnormality is identified. IMPRESSION: No fracture of the right hand is noted.
--- NOTE | 2017-03-27 15:56 | RAD ---
INDICATION: Bilateral hand pain and swelling following injury. COMPARISON: No relevant prior exams available on the [facility] for comparison. TECHNIQUE: AP, lateral, and oblique views LEFT hand. REPORT AND IMPRESSION: Negative for fracture or malalignment. Mild nonfocal soft tissue swelling. No conspicuous foreign body or subcutaneous emphysema evident.
[2017-03-27] MEDS: Cephalexin CAP* 500 MG PO SCH ×2 (17:11→21:10)
[2017-03-28] MEDS: Cephalexin CAP* 500 MG PO SCH ×4 (08:54→22:16)
[2017-03-28] MEDS: Vitamin THERAPEUTIC TAB PO SCH (08:54)
[2017-03-28] MEDS ORDERED: Paliperidone SUSTENNA* 234 MG/1.5 ML IM ONE (09:00)
--- NOTE | 2017-03-28 15:35 | PN ---
Subjective - Subjective Date of Service: 03/28/17 Service Type: 39005 Hosp care 15 min low complexity Subjective: remains isolative minimal interaction with staff or other patients not attending groups received first Invega injection this AM no side effects thus far vital signs stable MSE: good hygiene. showers daily prominent thought disorder actively hallucinating as evidenced by facial grimacing and chuckling to self for the most part his answers are relevant and appropriate but he gives little detail (poverty of content and amount of speech) will not share very much likely secondary to paranoia denies SI or HI in good behavioral control not agitated Assessment - Assessment Merits Inpatient Hospitalization: For Stabilization Clinical Impression: 26 yo male with schizophrenia, homeless and non adherant with medication. Patient brought by police after he was found running on street with disorganized thinking and behavior. patient has insight about his illness. He requested Invega injection yesterday as he has had this in past for a three month period and felt that it helped him. Plan - Plan Treatment Plan: Plan: s/p invega 234 mg this morning. will give injection # 2 in 6 days discharge to intermediate after second injection needs referral to [facility] for treatment of HepC will need [facility] and/or ACT team referral social insurance specialist is solidifying entitlements for patient as well and will refer him for intermediate bed while SPO application is pending for permanent housing.
[2017-03-29] MEDS ORDERED: Influenza VAC *QUAD* 2017-18* 0.5 ML SYRINGE IM ONE (09:00)
[2017-03-29] MEDS: Cephalexin CAP* 500 MG PO SCH ×4 (09:32→20:30)
[2017-03-29] MEDS: Vitamin THERAPEUTIC TAB PO SCH (09:32)
--- NOTE | 2017-03-29 11:34 | PN ---
Subjective - Subjective Date of Service: 03/29/17 Service Type: 81431 Hosp care 15 min low complexity Subjective: no complaints slept well overnight quite and isolative on unit Received Invega Sustenna 234 mg IM yesterday morning. eating and drinking normally ADL's have been very good here. Mental Status Examination: patient is already showing improvement in mental status compared with yesterday. Today patient shows improved relatedness and better eye contact. speech: shows increased fluency and spontaneity. asked about being discharged and able to tolerate wihtout any frustration when I told him that the plan was for him to be discharged on saturday04/03/2017 after administration of second Invega Sustenna injection thought process more organized no smiling, grimacing, chuckling to himself today not responding to internal stimuli denies SI,HI he does share very little information He has shown no agitation or agression on this admission Assessment - Assessment Merits Inpatient Hospitalization: For Immediate Safety, For Stabilization, Consolidate Improvements, For Discharge Planning Clinical Impression: 26 yo male with schizophrenia, homeless and non adherant with medication. Patient brought by police after he was found running on street with disorganized thinking and behavior. patient has insight about his illness. He requested Invega injection yesterday as he has had this in past for a three month period and felt that it helped him. patient is beginning to stabalize. He continues to require inpatient level of care as he is gravely disabled and would be at high risk if returned to community before his mental status is stable. Plan - Plan Treatment Plan: Plan: s/p invega 234 mg on 03/28/2017 will give injection # 2 on 04/03/2017 discharge to [facility] after second injection needs referral to [facility] for treatment of HepC will need [facility] and/or ACT team referral protective services social worker is solidifying entitlements for patient as well and will refer him for [facility] bed while S[employer] application is pending for permanent housing. chlorpromazine 50 mg qhs prn insomnia or or during dayf or agitation (has not required this since admission) nicotine replacement therapy (gum and inhaler prn)
[2017-03-30] MEDS: Vitamin THERAPEUTIC TAB PO SCH (08:21)
[2017-03-30] MEDS: Cephalexin CAP* 500 MG PO SCH ×4 (08:21→21:02)
--- NOTE | 2017-03-30 15:47 | PN ---
Subjective - Subjective Date of Service: 03/30/17 Service Type: [id number] Hosp care 15 min low complexity Subjective: Niels was in the dayroom laying on the couch and came to see me happily. No psychiatric complaints voiced but reports of ongoing numbness of right hand which hasbeen improving very slowly. He is able to close and open his fist without problem. Appears to have tolerated Invega Sustenna well. No side effects reported. Denies hallucinations, delusions or SI/HI. Asking about his discharge date. No nursing concerns on the unit. Objective - Appearance Appearance: Well Developed/Nourished Dysmorphic Features: No Hygiene: Normal Grooming: Disheveled - Behavior Psychomotor Activities: Normal Exhibits Abnormal Movement: No - Attitude and Relatedness Attitude and Relatedness: Appropriate Eye Contact: Good - Speech Quality: Unpressured Latencies: Normal Quantity: Appropriate - Mood Patient's Decription of Mood: "Fine" - Affect Observed Affect: Non-labile Affect Consistent with: Euthymia - Thought Process Patient's Thought Process: Coherent, Goal Directed Thought Content: No Passive Wish, No Suicidal Planning, No Homicidal Ideation, No Paranoid Ideation - Sensorium Experiencing Hallucinations: No, Sensorium is Clear Type of Hallucinations: Visual: No, Auditory: No, Command: No - Level of Consciousness Level of Consciousness: Alert Orientation: Yes Intact, Yes Orientated to Time, Yes Orientated to Place, Yes Orientated to Person - Impulse Control Impulse Control: Intact - Insight and Judgement Insight and Judgement: Fair - Group Participation Particating in Group Activities: Yes - Medication Management Medication Management Adherence: Yes Assessment - Assessment Merits Inpatient Hospitalization: Consolidate Improvements, For Discharge Planning Inpatient DSM-IV Dx: Schizophrenia Clinical Impression: Improving on current treatments. Plan - Plan Treatment Plan: Name: NIELS HATHAWAY Birthdate: 1990 [id number] Continued Medication Management: Continue Outpt Medication Medications: Current Medications Acetaminophen (Tylenol Tab*) 650 mg PO Q4H PRN PRN Reason: PAIN or TEMP > 101 F Last Admin: 03/27/17 13:12 Dose: 650 mg Al Hydrox/Mg Hydrox/Simethicone (Maalox Plus*) 30 ml PO Q4H PRN PRN Reason: INDIGESTION Cephalexin HCl (Keflex Cap*) 500 mg PO QID NEO Last Admin: 03/30/17 12:41 Dose: 500 mg Chlorpromazine HCl (Thorazine Tab*) 50 mg PO Q6H PRN PRN Reason: ANXIETY/ AGITATION Device (Nicotine Mouth Piece*) 1 each INH .CARTRIDGE NEO Diphenhydramine HCl (Benadryl Po*) 50 mg PO Q6H PRN PRN Reason: INSOMNIA /ANXIETY Multivitamins (Theragran Tab*) 1 tab PO DAILY NEO Last Admin: 03/30/17 08:21 Dose: 1 tab Nicotine (Nicotine Inhaler*) 10 mg INH Q2H PRN PRN Reason: CRAVING Last Admin: 03/28/17 23:49 Dose: 10 mg Nicotine Polacrilex (Nicotine Gum*) 2 mg PO Q2H PRN PRN Reason: CRAVING Paliperidone Palmitate (Invega Sustenna*) 156 mg IM ONCE ONE Stop: 04/03/17 09:01 - Discharge Plan Discharge Plan: Outpatient Follow Up Outpatient Program: [facility]
[2017-03-31] MEDS: Vitamin THERAPEUTIC TAB PO SCH (09:14)
[2017-03-31] MEDS: Cephalexin CAP* 500 MG PO SCH ×4 (09:14→20:51)
[2017-04-01] MEDS: Cephalexin CAP* 500 MG PO SCH ×4 (09:20→20:12)
[2017-04-01] MEDS: Vitamin THERAPEUTIC TAB PO SCH (09:20)
--- NOTE | 2017-04-01 14:14 | PN ---
Subjective - Subjective Date of Service: 04/01/17 Service Type: [id number] Hosp care 15 min low complexity Subjective: Niels spent most of his time in his room doing puzzle. Didn't have any psychiatric complaints including mood, thoughts or perceptions. Denied SI/HI or side effects from meds. Objective - Appearance Appearance: Well Developed/Nourished Dysmorphic Features: No Hygiene: Normal Grooming: Fairly Well Kept - Behavior Psychomotor Activities: Normal Exhibits Abnormal Movement: No - Attitude and Relatedness Attitude and Relatedness: Appropriate Eye Contact: Fair - Speech Quality: Unpressured Latencies: Normal Quantity: Appropriate - Mood Patient's Decription of Mood: "Okay" - Affect Observed Affect: Non-labile Affect Consistent with: Euthymia - Thought Process Patient's Thought Process: Coherent, Goal Directed Thought Content: No Passive Wish, No Suicidal Planning, No Homicidal Ideation, No Paranoid Ideation - Sensorium Experiencing Hallucinations: No, Sensorium is Clear Type of Hallucinations: Visual: No, Auditory: No, Command: No - Level of Consciousness Level of Consciousness: Alert Orientation: Yes Intact, Yes Orientated to Time, Yes Orientated to Place, Yes Orientated to Person - Impulse Control Impulse Control: Intact - Insight and Judgement Insight and Judgement: Fair - Group Participation Particating in Group Activities: No - Medication Management Medication Management Adherence: Yes Assessment - Assessment Merits Inpatient Hospitalization: Consolidate Improvements, Pending Safe DC Plan Inpatient DSM-IV Dx: Schizophrenia Clinical Impression: Improving on current treatments. Plan - Plan Treatment Plan: Name: NIELS HATHAWAY Birthdate: 1990 [id number] Doing much better and ready for discharge. Continued Medication Management: Continue Outpt Medication Medications: Current Medications Acetaminophen (Tylenol Tab*) 650 mg PO Q4H PRN PRN Reason: PAIN or TEMP > 101 F Last Admin: 03/27/17 13:12 Dose: 650 mg Al Hydrox/Mg Hydrox/Simethicone (Maalox Plus*) 30 ml PO Q4H PRN PRN Reason: INDIGESTION Cephalexin HCl (Keflex Cap*) 500 mg PO QID NEO Last Admin: 04/01/17 13:31 Dose: 500 mg Chlorpromazine HCl (Thorazine Tab*) 50 mg PO Q6H PRN PRN Reason: ANXIETY/ AGITATION Device (Nicotine Mouth Piece*) 1 each INH .CARTRIDGE NEO Diphenhydramine HCl (Benadryl Po*) 50 mg PO Q6H PRN PRN Reason: INSOMNIA /ANXIETY Multivitamins (Theragran Tab*) 1 tab PO DAILY NEO Last Admin: 04/01/17 09:20 Dose: 1 tab Nicotine (Nicotine Inhaler*) 10 mg INH Q2H PRN PRN Reason: CRAVING Last Admin: 03/28/17 23:49 Dose: 10 mg Nicotine Polacrilex (Nicotine Gum*) 2 mg PO Q2H PRN PRN Reason: CRAVING Paliperidone Palmitate (Invega Sustenna*) 156 mg IM ONCE ONE Stop: 04/03/17 09:01 - Discharge Plan Discharge Plan: Outpatient Follow Up Outpatient Program: [facility]
[2017-04-02] MEDS: Cephalexin CAP* 500 MG PO SCH ×4 (09:52→21:58)
[2017-04-02] MEDS: Vitamin THERAPEUTIC TAB PO SCH (09:52)
--- NOTE | 2017-04-02 17:33 | PN ---
Subjective - Subjective Date of Service: 04/02/17 Service Type: [id number] Hosp care 15 min low complexity Subjective: Psychiatric Attending Progress Note Proress notes which documented patient''s mental status and daily functioning on the unit over the 3 day was reveiwed in detail. Patient was cooperative and in good behavioral control over the weekend. Majority of time he isolated in room or kept to himself while on the milieu. He socialized occasionally with select peers. Ate meals. took care of his ADL's including daily showering. noted to be talking to himself intermittently. mostly did not attend groups. denied psychotic symptoms when asked. reported he was bored and looking forward to discharge. Interviewed patient X 15 minutes today MSE: well related today. very pleased to see me. requested discharge for tomorrow. tells me that he feels that invega has helped alot. feels less distracted, more able to communicate his thoughts effectively. no evidence of responding to internal stimuli today. no inapprpriate laughing. denies SI or HI. would like to be discharged after injection of Invega sustenna tomorrow [facility]. will follow up with [facility]. Impression: schizophrenia Plan: second Invega sustenna injection (156 mg) scheduled for tomorrow morning plan is to discharge patient after he receives injection Assessment - Assessment Inpatient DSM-IV Dx: Schizophrenia Clinical Impression: 26 yo male with schizophrenia, homeless and non adherant with medication. Patient brought by police after he was found running on street with disorganized thinking and behavior. patient has insight about his illness. He requested Invega injection yesterday as he has had this in past for a three month period and felt that it helped him. patient is beginning to stabalize. He continues to require inpatient level of care as he is gravely disabled and would be at high risk if returned to community before his mental status is stable. Plan - Plan Treatment Plan: Plan: s/p invega 234 mg on 03/28/2017 will give injection # 2 on 04/03/2017 discharge to [facility] after second injection needs referral to [facility] for treatment of HepC will need [facility] and/or ACT team referral healthcare social worker is solidifying entitlements for patient as well and will refer him for [facility] bed while [employer] application is pending for permanent housing. chlorpromazine 50 mg qhs prn insomnia or or during dayf or agitation (has not required this since admission) nicotine replacement therapy (gum and inhaler prn)
[2017-04-03] MEDS: Cephalexin CAP* 500 MG PO SCH ×4 (08:44→20:51)
[2017-04-03] MEDS: Vitamin THERAPEUTIC TAB PO SCH (08:44)
[2017-04-03] MEDS ORDERED: Paliperidone SUSTENNA* 156 MG/1 ML IM ONE (09:00)
--- NOTE | 2017-04-03 12:29 | PN ---
Subjective - Subjective Date of Service: 04/03/17 Service Type: 31728 Hosp care 15 min low complexity Subjective: The patient has been calm, cooperative and under control today and is eating, grooming and accepting medications appropriately. He is eager for discharge today, having just received the booster dose of GALEAS paliperidone 156mg IM, without incident, however, staff informs me that they have not yet completed essential elements of his discharge planning process, such as housing referral to [facility] or intake appointment with the ACT team. Niels denies side effects from his medications and has no acute complaints. Objective - Appearance Appearance: Well Developed/Nourished Dysmorphic Features: No Hygiene: Normal Grooming: Well Kept - Behavior Psychomotor Activities: Normal Exhibits Abnormal Movement: No - Attitude and Relatedness Attitude and Relatedness: Cooperative Eye Contact: Fair - Speech Quality: Unpressured Latencies: Normal Quantity: Appropriate - Mood Patient's Decription of Mood: "Good" - Affect Observed Affect: Fair Affect Consistent with: Euthymia - Thought Process Patient's Thought Process: Coherent Thought Content: No Passive Wish, No Suicidal Planning, No Homicidal Ideation, No Paranoid Ideation - Sensorium Experiencing Hallucinations: No, Sensorium is Clear Type of Hallucinations: Visual: No, Auditory: No, Command: No - Level of Consciousness Level of Consciousness: Alert Orientation: Yes Intact, Yes Orientated to Time, Yes Orientated to Place, Yes Orientated to Person - Impulse Control Impulse Control: Tenuous - Insight and Judgement Insight and Judgement: Fair - Group Participation Particating in Group Activities: Yes - Medication Management Medication Management Adherence: Yes Assessment - Assessment Merits Inpatient Hospitalization: Consolidate Improvements, Pending Safe DC Plan Inpatient DSM-IV Dx: Schizophrenia Clinical Impression: 26 y.o. single, white, homeless, unemployed male with a history of schizophrenia who was brought in by the police secondary to bizarre, unsafe behavior in the community who presented with active psychotic illness and was not on medications. Plan - Plan Treatment Plan: Name: NIELS HATHAWAY Birthdate: 1990 [id number] The patient has been successfully started on monthly paliperidone Sustenna and just received his booster dose this morning. Next injection will be due on Saturday, May 01. Will make psychosocial placement and follow up arrangements and target tomorrow (04/04) for discharge, likely to a detention. F/U with the [facility] ACT team. Continued Medication Management: Start Medication Medications: Current Medications Acetaminophen (Tylenol Tab*) 650 mg PO Q4H PRN PRN Reason: PAIN or TEMP > 101 F Last Admin: 03/27/17 13:12 Dose: 650 mg Al Hydrox/Mg Hydrox/Simethicone (Maalox Plus*) 30 ml PO Q4H PRN PRN Reason: INDIGESTION Cephalexin HCl (Keflex Cap*) 500 mg PO QID [facility] Last Admin: 04/03/17 08:44 Dose: 500 mg Chlorpromazine HCl (Thorazine Tab*) 50 mg PO Q6H PRN PRN Reason: ANXIETY/ AGITATION Device (Nicotine Mouth Piece*) 1 each INH .CARTRIDGE [facility] Diphenhydramine HCl (Benadryl Po*) 50 mg PO Q6H PRN PRN Reason: INSOMNIA /ANXIETY Multivitamins (Theragran Tab*) 1 tab PO DAILY [facility] Last Admin: 04/03/17 08:44 Dose: 1 tab Nicotine (Nicotine Inhaler*) 10 mg INH Q2H PRN PRN Reason: CRAVING Last Admin: 03/28/17 23:49 Dose: 10 mg Nicotine Polacrilex (Nicotine Gum*) 2 mg PO Q2H PRN PRN Reason: CRAVING - Discharge Plan Discharge Plan: Inpatient Hospitalization
[2017-04-04 07:35] VITALS: BP 111/67
[2017-04-04] MEDS: Cephalexin CAP* 500 MG PO SCH (08:39)
[2017-04-04] MEDS: Vitamin THERAPEUTIC TAB PO SCH (08:39)
--- NOTE | 2017-04-04 13:47 | DS ---
Treatment Course & Assessment Clinical Course & Impression: 26 yo male with schizophrenia, homeless and non adherant with medication. Patient brought by police after he was found running on street with disorganized thinking and behavior. patient has insight about his illness. He requested Invega injection yesterday as he has had this in past for a three month period and felt that it helped him. patient is beginning to stabalize. He continues to require inpatient level of care as he is gravely disabled and would be at high risk if returned to community before his mental status is stable. Inpatient DSM-IV Dx: Schizophrenia Discharge Planning - Discharge Planning Discharge Planning: Prescriptions provided for discharge [] Yes [] No Follow up care details as per social work arrangements. Patient response to discharge plan: [] eager for discharge [] agreeable with discharge plan [] ambivalent about discharge [] disagrees with discharge today
== END 2017-04-04 13:00 | DRG 750 ==
LOC: ED 22:46 → BSU 03-27 04:12
PROVIDERS: ADMIT Psychiatry & Neurology Psychiatry; ATTEND Psychiatry & Neurology Psychiatry
DX: F20.9 Schizophrenia, unspecified (principal); Z59.0 Homelessness; B19.20 Unspecified viral hepatitis C without hepatic coma; F32.9 Major depressive disorder, single episode, unspecified; F17.210 Nicotine dependence, cigarettes, uncomplicated; Z23 Encounter for immunization; Z88.8 Allergy status to other drugs, medicaments and biological substances; Z91.5 Personal history of self-harm; Z72.89 Other problems related to lifestyle; Z91.14 Patient's other noncompliance with medication regimen
CPT/HCPCS: 36415; 71020; 80053; 80307; 80320; 80329; 81003; 84443; 85025; 99231; 99238; A9270-GY; G0480; J2426

== ENCOUNTER 2017-04-07 13:26 | Emergency (ER) | payer OTHER, MEDICAID ==
[2017-04-07] MEDS ORDERED: LORazepam TAB(*) 1 MG PO ONE (14:40)
[2017-04-07 16:26] VITALS: BP 00/0
--- NOTE | 2017-04-07 22:33 | ED ---
Manas Penaloza Julia, scribed for Lenard Bailey MD on 04/07/17 at 1453 . Substance Abuse/Use - HPI Summary HPI Summary: This patient is a 26 year old M BIBA to [facility] with a chief complaint of general malaise since this morning. Patient states he smoked marijuana late last night and pin inserter regulator today because he had difficulty sleeping. Patient reports feeling nauseous, anxious, lightheaded, and dizzy. Patient is currently taking Invega for schizophrenia. - History Of Current Complaint Chief Complaint: EDSubstanceAbuse Stated Complaint: ANXIETY Time Seen by Provider: 04/07/17 14:07 Hx Obtained From: Patient Onset/Duration of Drug/ETOH Abuse: Hours Ingestion History: Type/Name Of Drug - marijuana, Approximate Time Of Ingestion - late evening pin inserter regulator 04/07/2017 Overdose Characteristics: Inhalation Character: Anxious Associated Signs And Symptoms: Other: - nauseous, anxious, lightheaded, and dizzy - Allergies/Home Medications Allergies/Adverse Reactions: Allergies Allergy/AdvReac Type Severity Reaction Status Date / Time Haloperidol [From Haldol] Allergy Unknown Verified 03/26/17 22:53 Reaction Details PMH/Surg Hx/FS Hx/Imm Hx Endocrine/Hematology History: Denies: Hx Diabetes Cardiovascular History: Denies: Hx Hypertension Respiratory History: Denies: Hx Asthma Sensory History: Denies: Hx Cataracts, Hx Contacts or Glasses, Hx Eye Injury, Hx Eye Prosthesis, Hx Glaucoma, Hx Hearing Aid Opthamlomology History: Denies: Hx Cataracts, Hx Contacts or Glasses, Hx Eye Injury, Hx Eye Prosthesis, Hx Glaucoma Psychiatric History: Reports: Hx Depression, Hx Inpatient Treatment, Hx Community Mental Health Tx, Hx Schizophrenia, Hx Suicide Attempt, Hx Substance Abuse Denies: Hx Eating Disorder, Hx of Violent Episodes Against Others - Surgical History Surgery Procedure, Year, and Place: Patient reports past hx of knee injury, 2013. - Immunization History Date of Tetanus Vaccine: unk Date of Influenza Vaccine: unk Infectious Disease History: Yes Infectious Disease History: Reports: Hx Hepatitis - HEP C+ Denies: Traveled Outside the [place] in Last 30 Days - Family History Known Family History: Positive: Other - mental health disorders - Social History Alcohol Use: None Alcohol Amount: quit drinking 2 months ago Hx Substance Use: Yes Substance Use Type: Reports: Marijuana Substance Use Comment - Amount & Last Used: Patient using heroin or cocaine within the last 3 months Hx Tobacco Use: Yes Smoking Status (MU): Light Every Day Tobacco Smoker Type: Cigarettes Have You Smoked in the Last Year: Yes Review of Systems Positive: Nausea Neurological: Other - lightheaded/dizzy Positive: Anxious All Other Systems Reviewed And Are Negative: Yes Physical Exam - Summary Physical Exam Summary: Appearance: The patient is well-nourished in no acute distress and in no acute pain. Skin: The skin is warm and dry and skin color reflects adequate perfusion. HEENT: The head is normocephalic and atraumatic. The pupils are equal and reactive. The conjunctivae are clear and without drainage. Nares are patent and without drainage. Mouth reveals moist mucous membranes and the throat is without erythema and exudate. The external ears are intact. The ear canals are patent and without drainage. The tympanic membranes are intact. Neck: the neck is supple with full range of motion and non-tender. There are no carotid bruits. There is no neck vein distension. Respiratory: Chest is non-tender. Lungs are clear to auscultation and breath sounds are symmetrical and equal. Cardiovascular: Heart is regular rate and rhythm. There is no murmur or rub auscultated. There is no peripheral edema and pulses are symmetrical and equal. Abdomen: The abdomen is soft and non-tender. There are normal bowel sounds heard in all four quadrants and there is no organomegaly palpated. Musculoskeletal: There is no back tenderness noted. Extremities are non-tender with full range of motion. There is good capillary refill. There is no peripheral edema or calf tenderness elicited. Neurological: Patient is alert and oriented to person, place and time. The patient has symmetrical motor strength in all four extremities. Cranial nerves are grossly intact. Deep tendon reflexes are symmetrical and equal in all four extremities. Psychiatric: The patient has an appropriate affect and does not exhibit any anxiety or depression. Triage Information Reviewed: Yes Vital Signs On Initial Exam: Initial Vitals Temp Pulse Resp BP Pulse Ox 99.4 F 94 14 148/84 98 04/07/17 13:30 04/07/17 13:30 04/07/17 13:30 04/07/17 13:30 04/07/17 13:30 Vital Signs Reviewed: Yes - Willa Coma Scale Coma Scale Total: 15 Diagnostics - Vital Signs Vital Signs Temp Pulse Resp BP Pulse Ox 04/07/17 14:07 95 98 04/07/17 14:05 136/74 04/07/17 13:30 99.4 F 94 14 148/84 98 - Laboratory Lab Results: Lab Results 04/07/17 Range/Units 13:33 Urine Opiates Screen None detected (None Detect) Ur Barbiturates Screen None detected (None Detect) Ur Phencyclidine Scrn None detected (None Detect) Ur Amphetamines Screen None detected (None Detect) U Benzodiazepines Scrn None detected (None Detect) Urine Cocaine Screen None detected (None Detect) U Cannabinoids Screen Presumptive positive H (None Detect) Lab Statement: Any lab studies that have been ordered have been reviewed, and results considered in the medical decision making process. Course/Dx - Course Course Of Treatment: Mr. Ayala presented with the C/O that he smoked some marijuana last night and in the wee hours this AM and it has made him anxious and unable to sleep. He also C/O nausea. He was given a PO Ativvan while his records were reviewed. He was D/C'd on the . The Discharge Summary states that he was not ready to leave the hospital and I spoke with Dr. Mohan who assures me that that was not the case and is a documentation error. He felt that Mr. Ayala could go home if he felt better after the Ativan. In fact, Mr. Ayala did anounce that he felt better and left immediately being unwilling to wait for his D/C paperwork. - Diagnoses Provider Diagnoses: Anxiety Discharge - Discharge Plan Condition: Stable Disposition: HOME Patient Education Materials: Anxiety (ED) Referrals: No Primary Care Phys,NOPCP [Primary Care Provider] - Additional Instructions: RETURN TO THE EMERGENCY DEPARTMENT FOR CHANGING OR WORSENING SYMPTOMS. The documentation as recorded by the Manas yung Julia accurately reflects the service I personally performed and the decisions made by me, Lenard Bailey MD.
== END 2017-04-07 16:18 | disposition home or self-care (01) ==
LOC: ED 13:26
DX: F41.9 Anxiety disorder, unspecified (principal); F12.10 Cannabis abuse, uncomplicated; F17.210 Nicotine dependence, cigarettes, uncomplicated; Z88.8 Allergy status to other drugs, medicaments and biological substances
CPT/HCPCS: 36415; 80307; 99283; A9270-GY

== ENCOUNTER 2017-04-07 17:30 | Emergency (ER) | payer OTHER, MEDICAID ==
[2017-04-07] MEDS ORDERED: Aspirin Low Dose CHEW TAB* 81 MG PO ONE (21:54)
[2017-04-07 21:58] LABS: ABS Basophils 0 10^3/ul (0-0.2); ABS Eosinophils 0.1 10^3/ul (0-0.6); ABS Lymphocytes 2.7 10^3/ul (1.0-4.8); ABS Monocytes 0.7 10^3/ul (0-0.8); ABS Nucleated RBC 0 10^3/ul; Eosinophil % 1.5 % (0-6); Hematocrit 42 % (42-52); Hemoglobin 14.3 g/dl (14.0-18.0); Lymphocyte % 36.1 % (25-47); Mean Corpuscular HGB Conc 34 g/dl (31-36); Mean Corpuscular Hemoglobin 30 pg (27-31); Mean Corpuscular Volume 88 fL (80-94); Mean Platelet Volume 7 um3 (7.4-10.4); Nucleated Red Blood Cells % 0.1; Platelet Count 253 10^3/ul (150-450); Red Cell Distribution Width 13 % (10.5-15); White Blood Count 7.6 10^3/ul (3.5-10.8)
[2017-04-07] MEDS ORDERED: NS 0.9% 1000 ML* 1,000 ML IV ONE (22:04)
--- NOTE | 2017-04-07 22:05 | ED ---
Psychiatric Complaint - HPI Summary HPI Summary: Pt initially presented with anxiety but by the time he was in a room and seen by myself, he was lethargic. Spoke w/ charge nurse, Lyndsey, who reports he was alert and anxious upon triage and after sitting in the waiting room for a bit, he laid down on the floor and was resting (this was reviewed on camera as well - does not appear to have fallen, struck his head, etc). He was brought back to room #8 and was quite sleepy. Upon my investigation, he was rousable by physical stimulation only and attention was poor. He does admit he received invega IM 2 weeks ago. He told triage he was anxious and couldn't sleep which is why he's here. After reviewing chart, he was seen here earlier tonight by Dr. Bailey who ordered ativan to aid in anxiety and sleep. It appears he took the ativan 2-3 hours before checking back and was alert then. He did leave for a brief period however but pt does not recall what he did or what happened. Does admit to smoking marijuana today and admits it could have been laced with something - he's not sure. Denies taking any other drugs or medications today, especially opiates or stimulants. Denies recent illness or injury but mostly responds, "I don't know" then falls back to sleep. - History Of Current Complaint Chief Complaint: EDPrescriptionNeeded Time Seen by Provider: 04/07/17 21:13 Hx Obtained From: Patient - Allergies/Home Medications Allergies/Adverse Reactions: Allergies Allergy/AdvReac Type Severity Reaction Status Date / Time Haloperidol [From Haldol] Allergy Unknown Verified 03/26/17 22:53 Reaction Details PMH/Surg Hx/FS Hx/Imm Hx Previously Healthy: No - poorly controlled schizophrenia Endocrine/Hematology History: Denies: Hx Anticoagulant Therapy, Hx Blood Disorders, Hx Diabetes Cardiovascular History: Denies: Hx Hypertension Respiratory History: Denies: Hx Asthma Sensory History: Denies: Hx Cataracts, Hx Contacts or Glasses, Hx Eye Injury, Hx Eye Prosthesis, Hx Glaucoma, Hx Hearing Aid Opthamlomology History: Denies: Hx Cataracts, Hx Contacts or Glasses, Hx Eye Injury, Hx Eye Prosthesis, Hx Glaucoma Psychiatric History: Reports: Hx Depression, Hx Inpatient Treatment, Hx Community Mental Health Tx, Hx Schizophrenia, Hx Suicide Attempt, Hx Substance Abuse Denies: Hx Eating Disorder, Hx of Violent Episodes Against Others - Surgical History Surgery Procedure, Year, and Place: Patient reports past hx of knee injury, 2014. - Immunization History Date of Tetanus Vaccine: unk Date of Influenza Vaccine: unk Infectious Disease History: No Infectious Disease History: Reports: Hx Hepatitis - HEP C+ Denies: Traveled Outside the [place] in Last 30 Days - Family History Known Family History: Positive: Other - mental health disorders - Social History Alcohol Use: None Alcohol Amount: quit drinking 2 months ago Hx Substance Use: Yes Substance Use Type: Reports: None Substance Use Comment - Amount & Last Used: Patient using heroin or cocaine within the last 3 months Hx Tobacco Use: Yes Smoking Status (MU): Light Every Day Tobacco Smoker Type: Cigarettes Have You Smoked in the Last Year: Yes Review of Systems - ROS Summary Review of Systems Summary: LEVEL 5 CAVEAT - lethargic, known to be poor historian Positive: Fatigue. Negative: Fever Negative: Sore Throat, Ear Ache, Nasal Discharge Negative: Chest Pain Negative: Shortness Of Breath Negative: Abdominal Pain, Vomiting, Diarrhea, Nausea Psychological: Other - reported to be anxious at triage - resting comfortably w/ o complaints All Other Systems Reviewed And Are Negative: Yes Physical Exam Triage Information Reviewed: Yes Vital Signs On Initial Exam: Initial Vitals Temp Pulse Resp BP Pulse Ox 98.6 F 92 16 138/79 97 04/07/17 17:34 04/07/17 17:34 04/07/17 17:34 04/07/17 17:34 04/07/17 17:34 Vital Signs Reviewed: Yes Appearance: Positive: No Pain Distress - pt is deeply sleeping upon entrance to room - he is rousable w/ physical stimulation but attention is short - breathing easily and pulse ox >95% on RA, Well-Nourished Skin: Positive: Warm, Skin Color Reflects Adequate Perfusion, Dry Head/Face: Positive: Normal Head/Face Inspection - no signs of trauma Eyes: Positive: ANSELMO, Conjunctiva Clear ENT: Positive: Hearing grossly normal, Pharynx normal - mucosa moist. Negative : Nasal congestion Neck: Positive: Supple, Nontender Respiratory/Lung Sounds: Positive: Clear to Auscultation, Breath Sounds Present. Negative: Rales, Rhonchi, Stridor, Tracheal Deviation, Wheezes Cardiovascular: Positive: Normal, RRR, Pulses are Symmetrical in both Upper and Lower Extremities, S1, S2. Negative: Murmur, Rub Abdomen Description: Positive: Nontender, No Organomegaly, Soft Bowel Sounds: Positive: Present Musculoskeletal: Positive: Other - can squeeze my fingers and responds to gross touch of the plantar surface of his feet Neurological: Positive: CN Intact II-III, Other - auditdory sensory reduce based on lack of response to speaking however physical sensation intact as observed by waking with touch and reaction to physical stimulation Psychiatric: Positive: Other - difficult to assess at this time - Willa Coma Scale Coma Scale Total: 15 Diagnostics - Vital Signs Vital Signs Temp Pulse Resp BP Pulse Ox 04/07/17 19:38 98.9 F 96 18 121/80 99 04/07/17 17:34 98.6 F 92 16 138/79 97 - Laboratory Lab Results: Lab Results 04/07/17 Range/Units 21:45 WBC 7.6 (3.5-10.8) 10^3/ul RBC 4.70 (4.0-5.4) 10^6/ul Hgb 14.3 (14.0-18.0) g/dl Hct 42 (42-52) % MCV 88 (80-94) fL MCH 30 (27-31) pg MCHC 34 (31-36) g/dl RDW 13 (10.5-15) % Plt Count 253 (150-450) 10^3/ul MPV 7 L (7.4-10.4) um3 Neut % (Auto) 53.1 (38-83) % Lymph % (Auto) 36.1 (25-47) % [place] % (Auto) 8.7 (1-9) % Eos % (Auto) 1.5 (0-6) % Baso % (Auto) 0.6 (0-2) % Absolute Neuts (auto) 4.0 (1.5-7.7) 10^3/ul Absolute Lymphs (auto) 2.7 (1.0-4.8) 10^3/ul Absolute Monos (auto) 0.7 (0-0.8) 10^3/ul Absolute Eos (auto) 0.1 (0-0.6) 10^3/ul Absolute Basos (auto) 0 (0-0.2) 10^3/ul Absolute Nucleated RBC 0 10^3/ul Nucleated RBC % 0.1 Result Diagrams: 04/07/17 21:45 04/07/17 21:45 Lab Statement: Any lab studies that have been ordered have been reviewed, and results considered in the medical decision making process. Course/Dx - Course Course Of Treatment: Pt intially presented to triage w/ anxiety, trouble sleeping. He was found to be sleeping on the floor in the waiting room and brought back to room #8. When I went in to interview and exam pt, he was sleeping hard and only rousable by physical stimulation. His BP was low and HR 120's w/ standing to provide urine sample. He has no apparent signs of trauma. He admits to taking ativan earlier tonight (see HPI) and smoked marijuana. Denies taking anything else but also responds "I don't know" to many questions then falls back to sleep. Psych labs were intially ordered to asses for medical and toxic causes of sx. Since he just started invega, an ECG was also ordered to asses for QT prolongation, AV block. He was found to have what initially appeared to be a STEMI in the anterior leads. However after utilizing the Subtle STEMI formula for early repolarization, pt's score was 23.0 suggestive of early repolarization. Reviewed this with Dr'Leo Rocha and Raudel. Dr. Alvarez was also consulted and agreed this is early repol and not a STEMI. Dr. Alvarez recommended treating pt for other issues he is presenting with tonight w/ o regard for acute [place]. Fluids were ordered but ASA was withheld. His trop's were neg and all other labs w/o significant findings for acute pathology. His LFT's are elevated but they typically are and they are actually better tonight than most recent draw. He offers no complaints of pain or anxiety or distress. After labs returned (only toxin on board was marijuana) and timeline was reviewed, it was decided a head CT to r/o intracranial pathology triggering sx would be ordered. This also is unremarkable for acute findings, yet a repeat finding a posterior fossa arachnoid cyst was reported (this same cyst was identified on previous head CT). The pt has been resting comfortably with stable vitals. He will be signed out to Dr. Starks for evaluation upon becoming more alert. An ECG may be repeated at that time. Signed out in stable yet gaurded condition. Spoke w/ Dr. Alvarez who does not feel this is a STEMI - tx for other conditions w/o changes - Differential Dx/Clinical Impression Provider Diagnosis: Lethargy Discharge - Discharge Plan Condition: Guarded Disposition: OTHER Discharge Disposition Comment: signed out Referrals: No Primary Care Phys,NOPCP [Primary Care Provider] -
[2017-04-07 22:06] LABS: Urine Appearance Clear; Urine Blood Negative (Negative); Urine Color Amber; Urine Ketones Trace (Negative); Urine Protein Negative (Negative); Urine Specific Gravity 1.024 (1.010-1.030); Urine Urobilinogen Negative (Negative)
[2017-04-07 22:15] LABS: EGFR Non-African American 116.1 (>60)
[2017-04-07 22:28] LABS: INR 0.96 (0.77-1.02)
--- NOTE | 2017-04-08 07:33 | RAD ---
INDICATION: Possible STEMI. COMPARISON: Comparison is made with a prior chest x-ray study from March 27, 2017. TECHNIQUE: A portable view of the chest was obtained. FINDINGS: Cardiac and mediastinal contours appear to be within normal limits. The lungs are clear. No pleural effusion is seen. IMPRESSION: NO EVIDENCE FOR ACUTE DISEASE.
--- NOTE | 2017-04-08 08:18 | RAD ---
INDICATION: Anxiety. COMPARISON: Similar CT of the brain September 22, 2015 TECHNIQUE: Contiguous axial sections of the brain were obtained from the skull base to the vertex without contrast. FINDINGS: Similar to the prior CT of the brain there is a left-sided infratentorial cystic structure external to the cerebellum consistent with an arachnoid cyst. Otherwise the ventricles, cisterns and sulci are within normal limits. The lagunas-white matter differentiation is adequately maintained and there is no sulcal effacement. No significant focal abnormality or mass effect is present. There is no evidence for intracranial hemorrhage. No significant focal osseous abnormality is present. The visualized portion of the paranasal sinuses appear clear. The mastoid air cells are well aerated bilaterally. IMPRESSION: No CT apparent acute intracranial abnormality.
--- NOTE | 2017-04-08 08:38 | ED ---
Paola Penaloza Gabriel, scribed for Howard Schneider MD on 04/08/17 at 0800 . Progress - Progress Note Progress Note: This patient was signed out from Dr. Bailey. Course/Dx - Course Course Of Treatment: Pt intially presented to triage w/ anxiety, trouble sleeping. He was found to be sleeping on the floor in the waiting room and brought back to room #8. When I went in to interview and exam pt, he was sleeping hard and only rousable by physical stimulation. His BP was low and HR 120's w/ standing to provide urine sample. He has no apparent signs of trauma. He admits to taking ativan earlier tonight (see HPI) and smoked marijuana. Denies taking anything else but also responds "I don't know" to many questions then falls back to sleep. Psych labs were intially ordered to asses for medical and toxic causes of sx. Since he just started invega, an ECG was also ordered to asses for QT prolongation, AV block. He was found to have what initially appeared to be a STEMI in the anterior leads. However after utilizing the Subtle STEMI formula for early repolarization, pt's score was 23.0 suggestive of early repolarization. Reviewed this with Dr's Leo Schneider and Raudel. Dr. Alvarez was also consulted and agreed this is early repol and not a STEMI. Dr. Alvarez recommended treating pt for other issues he is presenting with tonight w/ o regard for acute [place]. Fluids were ordered but ASA was withheld. His trop's were neg and all other labs w/o significant findings for acute pathology. His LFT's are elevated but they typically are and they are actually better tonight than most recent draw. He offers no complaints of pain or anxiety or distress. After labs returned (only toxin on board was marijuana) and timeline was reviewed, it was decided a head CT to r/o intracranial pathology triggering sx would be ordered. This also is unremarkable for acute findings, yet a repeat finding a posterior fossa arachnoid cyst was reported (this same cyst was identified on previous head CT). The pt has been resting comfortably with stable vitals. He will be signed out to Dr. Starks for evaluation upon becoming more alert. An ECG may be repeated at that time. Signed out in stable yet gaurded condition. Spoke w/ Dr. Alvarez who does not feel this is a STEMI - tx for other conditions w/o changes. I (Jennie) reevaluated patient after period of observation, pt tolerating PO normally, walking normally, feels well and denies any pain. Head CT and cxr shows no acute abnormalities. Stable for discharge. - Diagnoses Provider Diagnoses: Lethargy The documentation as recorded by the Paola yung Gabriel accurately reflects the service I personally performed and the decisions made by me, Howard Schneider MD.
[2017-04-08 08:40] VITALS: BP 91/56
== END 2017-04-08 08:59 | disposition home or self-care (01) ==
LOC: ED 17:30
DX: R53.83 Other fatigue (principal); F41.9 Anxiety disorder, unspecified; F17.210 Nicotine dependence, cigarettes, uncomplicated
CPT/HCPCS: 36415; 70450; 71045; 80053; 80307; 80320; 80329; 81003; 83605; 83735; 84443; 84484; 85025; 85379; 85610; 85730; 93005; 99283; G0480

== ENCOUNTER 2017-05-01 14:30 | Emergency (ER) | payer OTHER, MEDICAID ==
[2017-05-01] MEDS ORDERED: hydrOXYzine HCL TAB* 25 MG PO ONE (14:57)
--- OUTSIDE RECORDS SUMMARY | 2017-05-01 15:05 | XMS REPORT ---
:1990 External Reference #:[id number] Author Organization [employer] Address [address] [address] Phone [phone] Care Team Providers Name Role Phone Jason Ramos MD Primary Care Physician Unavailable Payers Type Date Identification Numbers Payment Provider Subscriber Commercial Policy Number: [id number] [facility] Yonatan Ayala Group Number: [id number] [address] PayID: [id number] [place] [address] [facility] Policy Number: [id number] Medicaid Yonatan Ayala Group Name: 1 1 [address] PayID: [id number] [place] [address] Problems Date Description Provider Status Onset: 02/22/2016 Schizophrenia Jason Ramos M.D. Active Onset: 03/14/2016 Chronic hepatitis C Jason Ramos M.D. Active Family History Date Family Member(s) Problem(s) Comments General No Current Problems Social History Type Date Description Comments ETOH Use Rarely consumes alcohol Smoking Heavy tobacco smoker (more than 10 cigarettes/day) Recreational Drug Use Denies Drug Use Allergies, Adverse Reactions, Alerts Date Description Reaction Status Severity Comments 04/17/2017 Haldol legs burn active Severe 02/22/2016 NKDA inactive Medications Medication Date Status Form Strength Qnty SIG Indications Ordering Provider Invega Active Suspension 156mg/ml Im Q 4 Unknown Sustenna 00 Weeks Vital Signs Date Vital Result Comment 04/17/2017 Weight 191.00 lb Heart Rate 77 /min BP Systolic Sitting 118 mmHg BP Diastolic Sitting 72 mmHg Body Temperature 97.7 F O2 % BldC Oximetry 98 % 03/14/2016 Weight 181.00 lb Heart Rate 62 /min BP Systolic Sitting 124 mmHg BP Diastolic Sitting 82 mmHg Respiratory Rate 15 /min O2 % BldC Oximetry 98 % 02/22/2016 Weight 193.00 lb with shoes Heart Rate 85 /min BP Systolic Sitting 94 mmHg BP Diastolic Sitting 62 mmHg O2 % BldC Oximetry 95 % Results Test Date Test Result H/L Range Note Laboratory test 03/14/2016 Hepatitis C Rna 44780 IU/mL Undetected 1 finding Quant Laboratory test 02/22/2016 Hepatitis C High Reactive Nonreactive 2 finding Antibody Hepatitis B Karley AB 02/22/2016 Hepatitis B Nonreactive Nonreactive Titer Surface AB Hep B Surf AB Level 3.25 mIU/mL <12 3 Comp Metabolic Panel 02/22/2016 Sodium 139 mmol/L 133-145 Potassium 4.2 mmol/L 3.5-5.0 Chloride 106 mmol/L 101-111 Co2 Carbon Dioxide 27 mmol/L 22-32 Anion Gap 6 mmol/L 2-11 Glucose 79 mg/dL 70-100 Blood Urea Nitrogen 13 mg/dL 6-24 Creatinine 1.02 mg/dL 0.67-1.17 BUN/Creatinine Ratio 12.7 8-20 Calcium 9.3 mg/dL 8.6-10.3 Total Protein 6.6 g/dL 6.4-8.9 Albumin 3.8 g/dL 3.2-5.2 Globulin 2.8 g/dL 2-4 Albumin/Globulin Ratio 1.4 1-3 Total Bilirubin 0.60 mg/dL 0.2-1.0 Alkaline Phosphatase 55 U/L 34-104 Alt 58 U/L High 7-52 Ast 32 U/L 13-39 Egfr Non- 89.7 >60 Egfr 115.4 >60 4 1 Result in log IU/mL is 4.71. ADDITIONAL INFORMATION The quantification range of this assay is 15 to 100,000,000 IU/mL (1.18 log to 8.00 log IU/mL). Testing was performed by the [employer] AmpliPrep/PROSPER TaqMan HCV Test, version 2.0 ([employer] Test Performed by: [place] [address] Signal Supervisor: Carl Avila II, M.D., Ph.D. 2 High reactive sample are considered positive for Hepatitis C 3 This assay does not differentiate between reactivity due to a vaccine-induced immune response or an immune response induced by infection with HBV. 4 Because ethnic data is not always readily available, this report includes an eGFR for both -Americans and non- Americans. The National Kidney Disease Education Program (NKDEP) does not endorse the use of the MDRD equation for patients that are not between the ages of 18 and 70, are , have extremes of body size, muscle mass, or nutritional status, or are non- or non-. According to the National Kidney Foundation, irrespective of diagnosis, the stage of the disease is based on the level of kidney function: Stage Description GFR(mL/min/1.73 m(2)) 1 Kidney damage with normal or decreased GFR 90 2 Kidney damage with mild decrease in GFR 60-89 3 Moderate decrease in GFR 30-59 4 Severe decrease in GFR 15-29 5 Kidney failure <15 (or dialysis) Procedures Date CPT Code Description Status 06/18/2012 83423 EKG, Interpretation Only Completed Encounters Type Date Location Provider CPT E/M Dx Office Visit 03/14/2016 1:20p [facility] Internal Medicine Jason Ramos, [address] B18.2 - Ervin Parr Office Visit 02/22/2016 2:00p [facility] Internal Medicine Jason Ramos, 35261 R94.5 - Ervin Parr F20.3 Plan of Care 04/17/2017 - Amalia Grene, NPB18.2 Chronic viral hepatitis CComments:I have made a Referral to Dr Silver for further evaluation of your Hepatitis C infection. You may need further blood testing.Referral:Fredrick Silver MD , Infectious Diseases
--- OUTSIDE RECORDS SUMMARY | 2017-05-01 15:05 | XMS REPORT ---
:1990 External Reference #:[id number] Author Organization [employer] Address [address] [address] Phone [phone] Care Team Providers Name Role Phone Jason Ramos MD Primary Care Physician Unavailable Payers Type Date Identification Numbers Payment Provider Subscriber Commercial Policy Number: [id number] [facility] Yonatan Ayala Group Number: [id number] [address] PayID: [id number] [place] [address] [facility] Part [facility] Policy Number: [id number] Medicaid Yonatan Ayala Group Name: 1 1 [address] PayID: [id number] [place] [address] Problems Date Description Provider Status Onset: 02/22/2016 Schizophrenia Jasno Ramos M.D. Active Onset: 03/14/2016 Chronic hepatitis [...] Weeks Vital Signs Date Vital Result Comment 04/26/2017 Height 69 inches 5'9" Weight 186.00 lb Heart Rate 120 /min BP Systolic Sitting 138 mmHg BP Diastolic Sitting 80 mmHg Respiratory Rate 14 /min Body Temperature 99.2 F BMI (Body Mass Index) 27.5 kg/m2 04/17/2017 Weight 191.00 lb Heart Rate 77 [...] Note Laboratory test 03/14/2016 Hepatitis C Rna [id number] IU/mL Undetected 1 finding Quant Laboratory test [...] AmpliPrep/PROSPER TaqMan HCV Test, version 2.0 ([employer] Test Performed by: [place] [address] Cloth Carrier: Carl Avila II, M.D., Ph.D. 2 High [...] Procedures Date CPT Code Description Status 06/18/2012 74728 EKG, Interpretation Only Completed Encounters Type Date Location Provider CPT E/M Dx Office Visit 04/17/2017 2:30p [facility] [place] [address] B18.[address] - [address] Office Visit 03/14/2016 1:20p [facility] Internal Medicine Jason Ramos [address] B18.2 - Ervin Parr Office Visit 02/22/2016 2:00p [facility] Internal Medicine Jason Ramos, [address] R94.5 - Ervin Parr F20.3 Plan of Care Future Appointment(s):05/21/2017 9:10 am - Fredrick Silver M.D. at [facility] For Infectious Lxotpbcl96/26/2018 - Fredrick Silver M.D.B18.2 Chronic viral hepatitis CFollow up:3 weeks
[2017-05-01 15:33] VITALS: BP 122/84
--- NOTE | 2017-05-03 11:42 | ED ---
Boris Penaloza Angela, scribed for Jono Rodriguez MD on 05/01/17 at 1457 . Psychiatric Complaint - HPI Summary HPI Summary: This pt is a 26 y/o male presenting to [facility] via EMS c/o panic attack today. Pt reports symptoms of lightheadedness, SOB and weakness. He states that his symptoms began after he got his medication for schizoaffective disorder, Invega. Pt notes he gets Invega injections twice a month. He reports they increased his Invega dosage today and he believes this might have affected him. He denies SI or HI. Denies abd pain, nausea, vomiting, diarrhea, fever. Pt smokes a lot of tobacco, today he smoked 20 cigarettes and states this helps him. - History Of Current Complaint Chief Complaint: EDGeneral Time Seen by Provider: 05/01/17 14:50 Hx Obtained From: Patient Onset/Duration: Lasting Hours, Still Present Timing: Hours Severity Currently: Moderate Character: Anxious Aggravating Factor(s): Other - recent increase in medication today Alleviating Factor(s): Nothing Related History: Positive For: Prior Psychiatric Issues Has Suicidal: Denies: Thoughts, With A Plan Has Homicidal: Denies: Thoughts, With A Plan - Allergies/Home Medications Allergies/Adverse Reactions: Allergies Allergy/AdvReac Type Severity Reaction Status Date / Time MS Haloperidol [From Haldol] Allergy Unknown Verified 03/26/17 22:53 Reaction Details PMH/Surg Hx/FS Hx/Imm Hx Endocrine/Hematology History: Denies: Hx Anticoagulant Therapy, Hx Blood Disorders, Hx Diabetes Cardiovascular History: Denies: Hx Hypertension Respiratory History: Denies: Hx Asthma Sensory History: Denies: Hx Cataracts, Hx Contacts or Glasses, Hx Eye Injury, Hx Eye Prosthesis, Hx Glaucoma, Hx Hearing Aid Opthamlomology History: Denies: Hx Cataracts, Hx Contacts or Glasses, Hx Eye Injury, Hx Eye Prosthesis, Hx Glaucoma Psychiatric History: Reports: Hx Depression, Hx Inpatient Treatment, Hx Community Mental Health Tx, Hx Schizophrenia, Hx Suicide Attempt, Hx Substance Abuse Denies: Hx Eating Disorder, Hx of Violent Episodes Against Others - Surgical History Surgery Procedure, Year, and Place: Patient reports past hx of knee injury, 2013. 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 GENERAL: Patient is a well-developed and nourished male who is lying comfortable in the stretcher. Patient is not in any acute respiratory distress. HEAD AND FACE: No signs of trauma. No ecchymosis, hematomas or skull depressions. No sinus tenderness. EYES: PERRLA, EOMI x 2, No injected conjunctiva, no nystagmus. EARS: Hearing grossly intact. Ear canals and tympanic membranes are within normal limits. MOUTH: Oropharynx within normal limits. NECK: Supple, trachea is midline, no adenopathy, no JVD, no carotid bruit, no c- spine tenderness, neck with full ROM. CHEST: Symmetric, no tenderness at palpation LUNGS: Clear to auscultation bilaterally. No wheezing or crackles. CVS: Regular rate and rhythm, S1 and S2 present, no murmurs or gallops appreciated. ABDOMEN: Soft, non-tender. No signs of distention. No rebound no guarding, and no masses palpated. Bowel sounds are normal. EXTREMITIES: FROM in all major joints, no edema, no cyanosis or clubbing. NEURO: Alert and oriented x 3. No acute neurological deficits. Speech is normal and follows commands. SKIN: Dry and warm PSYCH: Pt seems a little anxious. Triage Information Reviewed: Yes Vital Signs On Initial Exam: Initial Vitals Temp Pulse Resp BP Pulse Ox 100.4 F 100 17 128/86 98 05/01/17 14:31 05/01/17 14:31 05/01/17 14:31 05/01/17 14:31 18 14:31 Vital Signs Reviewed: Yes Diagnostics - Vital Signs Vital Signs Temp Pulse Resp BP Pulse Ox 05/01/17 14:31 100.4 F 100 17 128/86 98 - Laboratory Lab Statement: Any lab studies that have been ordered have been reviewed, and results considered in the medical decision making process. Course/Dx - Course Assessment/Plan: This pt is a 26 y/o male presenting to [facility] via EMS c/o panic attack today. Pt reports symptoms of lightheadedness, SOB and weakness. He states that his symptoms began after he got his medication for schizoaffective disorder, Invega. Pt notes he gets Invega injections twice a month. He reports they increased his Invega dosage today and he believes this might have affected him. He denies SI or HI. Denies abd pain, nausea, vomiting, diarrhea, fever. Pt smokes a lot of tobacco, today he smoked 20 cigarettes and states this helps him. The pt reports being nervous, anxious, and tremulous after he took his medications for schizophrenia. He takes this medication twice a month and every time he does he develops these symptoms. Pt is feeling better and his anxiety is resolved. Pt has no other symptoms. Therefore, he will be discharged home with follow up from PCP. He was prescribed Atarax. Pt is hemodynamically stable , alert and oriented x3. - Differential Dx/Clinical Impression Differential Diagnosis/HQI/PQRI: Positive: Anxiety, Suicidal Ideation Provider Diagnosis: Anxiety Discharge - Discharge Plan Condition: Stable Disposition: HOME Prescriptions: hydrOXYzine HCL TAB* [Atarax 25 MG TAB*] 25 mg PO TID PRN #20 tab PRN Reason: Anxiety Patient Education Materials: Anxiety (ED) Referrals: No Primary Care Phys,NOPCP [Primary Care Provider] - [facility] REFERRAL [Outside] - 3 Days Additional Instructions: Please follow up with your primary care provider. RETURN TO THE ED FOR ANY WORSENING SYMPTOMS. The documentation as recorded by the Boris yung Angela accurately reflects the service I personally performed and the decisions made by me, Jono Rodriguez MD.
== END 2017-05-01 15:32 | disposition home or self-care (01) ==
LOC: ED 14:30
DX: F41.9 Anxiety disorder, unspecified (principal); R06.02 Shortness of breath; R53.1 Weakness; F17.210 Nicotine dependence, cigarettes, uncomplicated
CPT/HCPCS: 99282; A9270-GY

== ENCOUNTER 2019-01-06 23:59 | Emergency (ER) | payer MEDICAID, OTHER ==
--- NOTE | 2019-01-07 01:36 | ED ---
Dizziness - HPI Summary HPI Summary: Pt is a 28 y/o M presenting to the ED brought in by EMS for dizziness. Pt states he worked out for two hours (running, biking) and felt like he was going to pass out afterwards. Pt feels fatigued, but notes his dizziness, described as lightheadedness, has resolved. He also recently stopped taking his Invega 1 week ago, but states it made him feel weird so he does not want it. - History Of Current Complaint Chief Complaint: EDMedicationRefill Stated Complaint: OFF MEDS PER EMS Time Seen by Provider: 01/07/19 00:53 Hx Obtained From: Patient Onset/Duration: Resolved, Suddenly Timing: Hours Severity Initially: Moderate Severity Currently: None Character: Lightheaded, Dizzy Aggravating Factor(s): Exertion Alleviating Factor(s): Rest Associated Signs And Symptoms: Positive: Negative - Allergies/Home Medications Allergies/Adverse Reactions: Allergies Allergy/AdvReac Type Severity Reaction Status Date / Time MS Haloperidol [From Haldol] Allergy Unknown Verified 03/26/17 22:53 Reaction Details PMH/Surg Hx/FS Hx/Imm Hx Previously Healthy: Yes Endocrine/Hematology History: Denies: Hx Anticoagulant Therapy, Hx Blood Disorders, Hx Diabetes Cardiovascular History: Denies: Hx Hypertension Respiratory History: Denies: Hx Asthma Sensory History: Denies: Hx Cataracts, Hx Contacts or Glasses, Hx Eye Injury, Hx Eye Prosthesis, Hx Glaucoma, Hx Hearing Aid Opthamlomology History: Denies: Hx Cataracts, Hx Contacts or Glasses, Hx Eye Injury, Hx Eye Prosthesis, Hx Glaucoma Psychiatric History: Reports: Hx Depression, Hx Inpatient Treatment, Hx Community Mental Health Tx, Hx Schizophrenia, Hx Suicide Attempt, Hx Substance Abuse Denies: Hx Eating Disorder, Hx of Violent Episodes Against Others - Surgical History Surgery Procedure, Year, and Place: Patient reports past hx of knee injury, 2013. 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 (-) Distressed Skin: Warm, Dry HENT: Normocephalic; Atraumatic Eyes: Conjunctiva normal Neck: Musculoskeletal ROM normal neck. (-) JVD, (-) Stridor, (-) Tracheal deviation Cardio: Rhythm regular, rate normal, Heart sounds normal; Intact distal pulses; Radial pulses are 2+ and symmetric. (-) Murmur Pulmonary/Chest wall: Effort normal. (-) Respiratory distress, (-) Wheezes, (-) Rales Abd: Soft, (-) tenderness, (-) Distension, (-) Guarding, (-) Rebound Musculoskeletal: (-) Edema Lymph: (-) Cervical adenopathy Neuro: Alert, Oriented x3 Psych: Mood and affect Normal Triage Information Reviewed: Yes Vital Signs On Initial Exam: Initial Vitals Temp Pulse Resp BP Pulse Ox 98.4 F 80 18 124/84 97 01/07/19 00:06 01/07/19 00:06 01/07/19 00:06 01/07/19 00:06 01/07/19 00:06 Vital Signs Reviewed: Yes Procedures - Sedation Patient Received Moderate/Deep Sedation with Procedure: No Diagnostics - Vital Signs Vital Signs Temp Pulse Resp BP Pulse Ox 01/07/19 00:06 98.4 F 80 18 124/84 97 - Laboratory Lab Statement: Any lab studies that have been ordered have been reviewed, and results considered in the medical decision making process. Dizzy Course/Dx - Course Course Of Treatment: Patient presented with concerns about exercising for 2 hours. Patient has schizoaffective disorder and has been off his medicine. Patient just moved back from [place] where he was getting his Invega. Patient has no reflex symptoms of mental health today and did not need emergent hold. Patient stated that he worked out for 2 hours today and wanted to make sure that was okay. Patient was asymptomatic upon arrival here. Patient is homeless and staying at the [facility]. Patient has an appointment with [facility] tomorrow. Patient does not want to be on his antipsychotic medication. Patient was given [facility] for follow up - Diagnoses Provider Diagnoses: Schizoaffective disorder Discharge ED - Sign-Out/Discharge Documenting (check all that apply): Patient Departure - Discharge Plan Condition: Stable Disposition: HOME Referrals: [facility] [Outside] Additional Instructions: Please follow up with [facility] as well as [facility] within the next 1-3 days. Return to the emergency department with any dark urine, uncontrollable vomiting , suicidal thoughts, or homicidal thoughts. [address] [phone] - Billing Disposition and Condition Condition: STABLE Disposition: Home - Attestation Statements Document Initiated by Neetuibe: Yes Documenting Scribe: Vielka Roy Provider For Whom Anna is Documenting (Include Credential): Nelson Soares MD. Scribe Attestation: Vielka Penaloza, suhailed for Nelson Soares MD. on 01/07/19 at 0319. Scribe Documentation Reviewed: Yes Provider Attestation: The documentation as recorded by the Vielka yung accurately reflects the service I personally performed and the decisions made by , Nelson Soares MD. Status of Scribe Document: Viewed
[2019-01-07 02:15] VITALS: BP 110/71
== END 2019-01-07 02:14 | disposition home or self-care (01) ==
LOC: ED 23:59
DX: F25.9 Schizoaffective disorder, unspecified (principal); F17.210 Nicotine dependence, cigarettes, uncomplicated; Z88.8 Allergy status to other drugs, medicaments and biological substances
CPT/HCPCS: 99282

== ENCOUNTER 2019-01-16 14:43 | Emergency (ER) | payer SELFPAY ==
[2019-01-16 16:29] VITALS: BP 132/86
--- NOTE | 2019-01-16 17:37 | ED ---
Throat Pain/Nasal Congestion - HPI Summary HPI Summary: Patient is a 28-year-old male who presents emergency department for left ear pain times several days. Denies associated symptoms of fever, headache, cough, abdominal pain. Symptoms are mild in severity. No relevant past medical history. No current modifying factors. - History of Current Complaint Chief Complaint: EDEarPain Time Seen by Provider: 01/16/19 15:42 Hx Obtained From: Patient - Allergies/Home Medications Allergies/Adverse Reactions: Allergies Allergy/AdvReac Type Severity Reaction Status Date / Time haloperidol [From Haldol] Allergy Intermediate See Comment Verified 01/16/19 14: 54 PMH/Surg Hx/FS Hx/Imm Hx Previously Healthy: Yes Endocrine/Hematology History: Denies: Hx Anticoagulant Therapy, Hx Blood Disorders, Hx Diabetes Cardiovascular History: Denies: Hx Hypertension Respiratory History: Denies: Hx Asthma Sensory History: Denies: Hx Cataracts, Hx Contacts or Glasses, Hx Eye Injury, Hx Eye Prosthesis, Hx Glaucoma, Hx Hearing Aid Opthamlomology History: Denies: Hx Cataracts, Hx Contacts or Glasses, Hx Eye Injury, Hx Eye Prosthesis, Hx Glaucoma Psychiatric History: Reports: Hx Depression, Hx Inpatient Treatment, Hx Community Mental Health Tx, Hx Schizophrenia, Hx Suicide Attempt, Hx Substance Abuse Denies: Hx Eating Disorder, Hx of Violent Episodes Against Others - Surgical History Surgery Procedure, Year, and Place: Patient reports past hx of knee injury, 2013. - Immunization History Date of Tetanus Vaccine: unk Date of Influenza Vaccine: unk Immunizations Up to Date: Yes Infectious Disease History: No Infectious Disease History: Reports: Hx Hepatitis - HEP C+ Denies: Traveled Outside the [place] in Last 30 Days - Family History Known Family History: Positive: Other - mental health disorders, Non- Contributory - Social History Occupation: Unemployed Lives: Alone Alcohol Use: None Alcohol Amount: quit drinking 2 months ago Hx Substance Use: Yes Substance Use Type: Reports: Marijuana Substance Use Comment - Amount & Last Used: Patient using heroin or cocaine within the last 3 months Hx Tobacco Use: Yes Smoking Status (MU): Former Smoker Type: Cigarettes Have You Smoked in the Last Year: Yes Review of Systems Constitutional: Negative Negative: Fever, Chills Positive: Ear Ache Cardiovascular: Negative Respiratory: Negative Negative: Cough Gastrointestinal: Negative Skin: Negative Neurological: Negative All Other Systems Reviewed And Are Negative: Yes Physical Exam Triage Information Reviewed: Yes Vital Signs On Initial Exam: Initial Vitals Temp Pulse Resp BP Pulse Ox 98.6 F 80 16 120/83 97 01/16/19 14:51 01/16/19 14:51 01/16/19 14:51 01/16/19 14:51 01/16/19 14:51 Vital Signs Reviewed: Yes Appearance: Positive: Well-Appearing - patient sitting in bed in no acute distress. Skin: Positive: Warm, Dry Head/Face: Positive: Normal Head/Face Inspection Eyes: Positive: Normal, EOMI, ANSELMO, Conjunctiva Clear ENT: Positive: Pharynx normal, Other - Right TM and canal unremarkable. Mild edema and excoriation left external canal. Eardrum is erythematous and bulging. No mastoid tenderness.. Negative: Tonsillar swelling, Tonsillar exudate Neck: Positive: Supple, Nontender. Negative: Nuchal Rigidity Respiratory/Lung Sounds: Positive: Clear to Auscultation, Breath Sounds Present Cardiovascular: Positive: Normal, RRR Neurological: Positive: Normal, CN Intact II-III Psychiatric: Positive: Affect/Mood Appropriate Procedures - Sedation Patient Received Moderate/Deep Sedation with Procedure: No Diagnostics - Vital Signs Vital Signs Temp Pulse Resp BP Pulse Ox 01/16/19 16:28 98.6 F 82 16 132/86 98 01/16/19 14:51 98.6 F 80 16 120/83 97 - Laboratory Lab Statement: Any lab studies that have been ordered have been reviewed, and results considered in the medical decision making process. EENT Course/Dx - Course Course Of Treatment: Exam consistent with otitis media and mild otitis externa. We'll treat with Augmentin and Polytrim HC drops. Advised Tylenol or Motrin for pain as directed. Follow-up with PCP ER if symptoms change or worsen. - Differential Diagnoses Differential Diagnoses: Otitis Externa, Otitis Media - Diagnoses Provider Diagnoses: Otitis media, Otitis externa Discharge ED - Sign-Out/Discharge Documenting (check all that apply): Patient Departure - Discharge Plan Condition: Good Disposition: HOME Prescriptions: Amoxicillin/Clavulanate TAB* [Augmentin TAB 875*] 875 mg PO BID #20 tab Ibuprofen TAB* [Motrin TAB* 800 MG] 800 mg PO TID #20 tab Neomyc/Polym/HC 1% OTIC SUSP* [Cortisporin Otic Susp 1%*] 4 drop LEFT EAR TID # 1 btl Patient Education Materials: Ear Infection (ED) Referrals: [facility] [Outside] Additional Instructions: Follow up with the [facility] if symptoms persist Antibiotics as directed Ibuprofen for pain as directed Apply warm compress to help with pain Return to ER if symptoms change or worsen - Billing Disposition and Condition Condition: GOOD Disposition: Home
== END 2019-01-16 16:28 | disposition home or self-care (01) ==
LOC: ED 14:43
DX: H66.92 Otitis media, unspecified, left ear (principal); H60.92 Unspecified otitis externa, left ear; F32.9 Major depressive disorder, single episode, unspecified; Z87.891 Personal history of nicotine dependence; Z88.8 Allergy status to other drugs, medicaments and biological substances
CPT/HCPCS: 99282

== ENCOUNTER 2019-02-05 02:09 | Emergency (ER) | payer MEDICAID ==
--- NOTE | 2019-02-05 02:22 | ED ---
Substance Abuse/Use - HPI Summary HPI Summary: 28 year old M brought in by EMS to [facility] complains of "feeling unsafe and uncomfortable" since taking 1 OTC melatonin 21:00 yesterday 116 PM. Patient states he woke up at 01:30 today 02/05 feeling "unsafe and uncomfortable," dizzy as if he was going to pass out. Patient states there is nothing in particular he is worried about. States he still feels off currently. States he feels like his "movement is limited," and it is hard to move, and his head hurts with movement. Patient states he took 4 OTC melatonin a few days ago. States he has had difficulty sleeping in the last few days, getting around 4-5 hours every night. Symptoms aggravated by nothing. Symptoms alleviated by nothing. Has had similar sx before. - History Of Current Complaint Stated Complaint: OVERDOSE PER EMS Hx Obtained From: Patient Aggravating Factor(s): Nothing Alleviating Factor(s): Nothing - Allergies/Home Medications Allergies/Adverse Reactions: Allergies Allergy/AdvReac Type Severity Reaction Status Date / Time haloperidol [From Haldol] Allergy Intermediate See Comment Verified 01/16/19 14: 54 Home Medications: Home Medications Paliperidone SUSTENNA* [Invega Sustenna*] 156 mg PO DAILY 02/05/19 [History Confirmed 02/05/19] PMH/Surg Hx/FS Hx/Imm Hx Endocrine/Hematology History: Denies: Hx Anticoagulant Therapy, Hx Blood Disorders, Hx Diabetes Cardiovascular History: Denies: Hx Hypertension Respiratory History: Denies: Hx Asthma Sensory History: Denies: Hx Cataracts, Hx Contacts or Glasses, Hx Eye Injury, Hx Eye Prosthesis, Hx Glaucoma, Hx Hearing Aid Opthamlomology History: Denies: Hx Cataracts, Hx Contacts or Glasses, Hx Eye Injury, Hx Eye Prosthesis, Hx Glaucoma Psychiatric History: Reports: Hx Depression, Hx Inpatient Treatment, Hx Community Mental Health Tx, Hx Schizophrenia, Hx Suicide Attempt, Hx Substance Abuse Denies: Hx Eating Disorder, Hx of Violent Episodes Against Others - Surgical History Surgery Procedure, Year, and Place: Patient reports past hx of knee injury, 2013. - Immunization History Date of Tetanus Vaccine: unk Date of Influenza Vaccine: unk Infectious Disease History: Reports: Hx Hepatitis - HEP C+ - Family History Known Family History: Positive: Other - mental health disorders - Social History Alcohol Use: None Alcohol Amount: quit drinking Hx Substance Use: Yes Substance Use Type: Reports: Marijuana Substance Use Comment - Amount & Last Used: Patient using heroin or cocaine within the last 3 months Hx Tobacco Use: Yes Smoking Status (MU): Former Smoker Type: Cigarettes Have You Smoked in the Last Year: Yes Review of Systems Positive: Other - "movement is limited" Neurological: Other - Dizziness Positive: Other - "feeling unsafe and uncomfortable" All Other Systems Reviewed And Are Negative: Yes Physical Exam - Summary Physical Exam Summary: Appearance: Well-appearing, Well-nourished, lying in bed comfortably Skin: Warm, dry, no obvious rash Eyes: sclera anicteric, no conjunctival pallor ENT: mucous membranes moist, pharynx appears normal Neck: Supple, nontender Respiratory: Clear to auscultation, no signs of respiratory distress Cardiovascular: Normal S1, S2. No murmurs. Normal distal pulses in tibial and radial bilaterally. Abdomen: Soft, nontender, normal active bowel sounds present Musculoskeletal: Normal, Strength/ROM Intact Neurological: A&Ox3, awake and alert, mentation is normal, speech is fluent and appropriate Psychiatric: affect is normal, does not appear anxious or depressed Triage Information Reviewed: Yes Vital Signs Reviewed: Yes Procedures - Sedation Patient Received Moderate/Deep Sedation with Procedure: No Diagnostics - Laboratory Result Diagrams: 02/05/19 02:27 02/05/19 02:27 Lab Statement: Any lab studies that have been ordered have been reviewed, and results considered in the medical decision making process. - EKG 0228 Cardiac Rate: NL - 67 BPM EKG Rhythm: Sinus Rhythm Summary of EKG Findings: NSR at 67 BPM, P waves, QRS complex, and T waves are within normal limits, T waves and intervals are normal, no ischemic changes. This is a normal EKG. Course/Dx - Course Course Of Treatment: 28 year old M complains of "feeling unsafe and uncomfortable" since taking 1 OTC melatonin 21:00 yesterday 11/6 PM. States he has had difficulty sleeping in the last few days. Has psychiatric hx. He did have a recent 24 hr ambulatory EEG that was abnormal, but did not show any definite epileptic seizures. NSR at 67 BPM, P waves, QRS complex, and T waves are within normal limits, T waves and intervals are normal, no ischemic changes. This is a normal EKG. Bloodwork results with no significant abnormalities except for Hgb 13.9, Hct 41. Patient will be discharged home with follow up from [facility] as soon as possible. Patient was instructed to return to Emergency Department for new or worsening symptoms. Patient understands and is agreeable to this plan. - Diagnoses Provider Diagnoses: Anxiety, Insomnia Discharge ED - Sign-Out/Discharge Documenting (check all that apply): Patient Departure - Discharge - Discharge Plan Condition: Good Disposition: HOME Patient Education Materials: Insomnia (ED), Anxiety (ED) Referrals: [facility] [Outside] - As Soon As Possible - Billing Disposition and Condition Condition: GOOD Disposition: Home - Attestation Statements Document Initiated by Anna: Yes Documenting Scribe: Rebecca Osman Provider For Whom Anna is Documenting (Include Credential): Lenard Barba MD Scribe Attestation: Rebecca Penaloza, scribed for Lenard Barba MD on 02/05/19 at 0515. Scribe Documentation Reviewed: Yes Provider Attestation: The documentation as recorded by the Rebecca yung accurately reflects the service I personally performed and the decisions made by me, Lenard Barba MD Status of Scribe Document: Viewed
[2019-02-05 02:34] LABS: ABS Eosinophils 0.2 10^3/ul (0-0.6); ABS Lymphocytes 2.7 10^3/ul (1.0-4.8); ABS Monocytes 0.6 10^3/ul (0-0.8); ABS Neutrophils 3.1 10^3/ul (1.5-7.7); Eosinophil % 2.3 %; Hematocrit 41 % (42-52); Hemoglobin 13.9 g/dL (14.0-18.0); Mean Corpuscular HGB Conc 34 g/dL (31-36); Mean Corpuscular Hemoglobin 29 pg (27-31); Mean Corpuscular Volume 86 fL (80-94); Mean Platelet Volume 7.6 fL (7.4-10.4); Nucleated Red Blood Cells % 0.1; Platelet Count 241 10^3/uL (150-450); Red Blood Count 4.71 10^6 /uL (4.18-5.48); Red Cell Distribution Width 12 % (10-15); White Blood Count 6.6 10^3/uL (3.5-10.8)
[2019-02-05 02:50] LABS: ALT 35 U/L (7-52); AST 21 U/L (13-39); Albumin 4.2 g/dL (3.2-5.2); Albumin/Globulin Ratio 1.7 (1-3); Alkaline Phosphatase 71 U/L (34-104); Anion Gap 7 mmol/L (2-11); BUN/Creatinine Ratio 16.9 (8-20); Blood Urea Nitrogen 14 mg/dL (6-24); CO2 Carbon Dioxide 24 mmol/L (22-32); Calcium 9.1 mg/dL (8.6-10.3); Chloride 107 mmol/L (101-111); EGFR African American 134.5 (>60); EGFR Non-African American 111.1 (>60); Globulin 2.5 g/dL (2-4); Glucose 95 mg/dL (70-100); Potassium 3.6 mmol/L (3.5-5.0); Sodium 138 mmol/L (135-145); Total Protein 6.7 g/dL (6.4-8.9)
[2019-02-05 03:07] LABS: Alcohol < 10 mg/dL (<10)
--- OUTSIDE RECORDS SUMMARY | 2019-02-05 03:15 | XMS REPORT | Continuity of Care Document ---
:1990 External Reference #:[id number] Author Name rBian Marquis MD (transmitted by agent of provider Miya Todd) Address [address] [place] [id number] Care Team Providers Name Role Phone Jason Ramos MD - Internal Care Team Information Jute Bag Clipper [phone] Medicine Fredrick Silver MD - Infectious Care Team Information Jute Bag Clipper Disease Problems Active Problems Provider Date Schizophrenia Jason Ramos M.D. Onset: 02/22/2016 Chronic hepatitis C Jason Ramos M.D. Onset: 03/14/2016 Social History Type Date Description Comments Sex Unknown ETOH Use Rarely consumes alcohol Recreational Drug Use Denies Drug Use Tobacco Use Start: Unknown End: Patient is a former quit in May Unknown smoker 2017 Smoking Status Reviewed: 01/28/19 Patient is a former quit in May smoker 2018 Allergies, Adverse Reactions, Alerts Active Allergies Reaction Severity Comments Date Haldol legs burn Severe 04/17/2017 Inactive Allergies NKDA 02/22/2016 Medications Active Medications SIG Qnty Indications Ordering Provider Date Invega Sustenna One shot now 1ml F25.9 Brian Marquis MD 01/28/2019 156mg/ml Anitra Invega Sustenna Im Q 4 Weeks Unknown 156mg/ml Suspension Immunizations Description No Information Available Vital Signs Date Vital Result Comment 01/28/2019 3:55pm Height 69 inches 5'9" Weight 220.50 lb Heart Rate 78 /min BP Systolic 113 mmHg BP Diastolic 73 mmHg Body Temperature 98.5 F O2 % BldC Oximetry 96 % BMI (Body Mass Index) 32.6 kg/m2 08/16/2017 10:50am Height 69 inches 5'9" Weight 214.38 lb Heart Rate 76 /min BP Systolic Sitting 120 mmHg BP Diastolic Sitting 80 mmHg Respiratory Rate 14 /min Body Temperature 97.3 F BMI (Body Mass Index) 31.7 kg/m2 Results Description No Information Available Procedures Description No Information Available Medical Devices Description No Information Available Encounters Description No Information Available Assessments Date Code Description Provider 01/28/2019 F25.9 Schizoaffective disorder, unspecified Brian Marquis MD 01/28/2019 B18.2 Chronic viral hepatitis C Brian Marquis MD 01/28/2019 R94.5 Abnormal results of liver function studies Brian Marquis MD Plan of Treatment Future Appointment(s):02/02/2019 1:40 pm - Fredrick Silver M.D. at [facility] Ujfhhkrd88/30/2019 - Brian Marquis MDF25.9 Schizoaffective disorder, unspecifiedNew Medication:Invega Sustenna 156 mg/ml - One shot nowComments:Call us tomorrow with your Psychiatrists name.B18.2 Chronic viral hepatitis CReferral:Fredrick Silver MD, Infectious GecskiheZ24.5 Abnormal results of liver function studies Functional Status Description No Information Available Mental Status Description No Information Available Referrals Refer to Dr Reason for Referral Status Appt Date Fredrick Silver MD Chronic Hepatitis C, only took 1-2 weeks Sent 02/02 of [facility] before moving out of [facility]. [address] [place] [address] [phone]
--- OUTSIDE RECORDS SUMMARY | 2019-02-05 03:15 | XMS REPORT | Continuity of Care Document ---
:1990 External Reference #:[id number] Author Name Fredrick Silver M.D. (transmitted by agent of provider Kathi Lerner ) Address [address] [place] [id number] Care Team Providers Name Role Phone Jason Ramos MD - Internal Care Team Information Physician Office Rep Medicine Fredrick Silver MD - Infectious Care Team Information Physician Office Rep Disease Problems Active Problems Provider Date Schizophrenia Jason Ramos M.D. Onset: 02/22/2016 Substance abuse counseling Brian Marquis MD Onset: 01/28/2019 Nondependent cocaine abuse in remission Brian Marquis MD Onset: 01/28/2019 Opioid dependence in remission Brian Marquis MD Onset: 01/28/2019 Liver function tests abnormal Brian Marquis MD Onset: 01/28/2019 Schizoaffective disorder Brian Marquis MD Onset: 01/28/2019 Chronic hepatitis C Jason Ramos M.D. Onset: 03/14/2016 Social History Type Date Description Comments Sex Unknown ETOH Use Occasionally consumes Intermittent abuse alcohol when detoxing from crack cocaine. Recreational Drug Use Denies Drug Use Tobacco Use Start: Unknown Patient is a former quit in May 2017 End: Unknown smoker Recreational Drug Use Former Drug User crack cocaine, heroin, mushrooms, marijuana Smoking Status Reviewed: 02/02/19 Patient is a former quit in May 2017 smoker Allergies, Adverse Reactions, Alerts Active Allergies Reaction Severity Comments Date Haldol legs burn Severe 04/17/2017 Inactive Allergies NKDA 02/22/2016 Medications Active Medications SIG Qnty Indications Ordering Provider Date Invega Sustenna One shot now 1ml F25.9 Brian Marquis MD 01/28/2019 156mg/ml Anitra Invega Sustenna Im Q 4 Weeks Unknown 156mg/ml Suspension Immunizations Description No Information Available Vital Signs Date Vital Result Comment 02/02/2019 3:47pm Height 69 inches 5'9" Weight 219.00 lb Heart Rate 82 /min BP Systolic Sitting 124 mmHg BP Diastolic Sitting 84 mmHg Respiratory Rate 14 /min Body Temperature 97.1 F BMI (Body Mass Index) 32.3 kg/m2 01/28/2019 3:55pm Height 69 inches 5'9" Weight 220.50 lb Heart Rate 78 /min BP Systolic 113 mmHg BP Diastolic 73 mmHg Body Temperature 98.5 F O2 % BldC Oximetry 96 % BMI (Body Mass Index) 32.6 kg/m2 Results Description No Information Available Procedures Description No Information Available Medical Devices Description No Information Available Encounters Description No Information Available Assessments Date Code Description Provider 02/02/2019 B18.2 Chronic viral hepatitis C Fredrick Silver M.D. 01/28/2019 F25.9 Schizoaffective disorder, unspecified Brian Marquis MD 01/28/2019 B18.2 Chronic viral hepatitis C Brian Marquis MD 01/28/2019 R94.5 Abnormal results of liver function Brian Marquis MD studies 01/28/2019 F11.21 Opioid dependence, in remission Brian Marquis MD 01/28/2019 F14.11 Cocaine abuse, in remission Brian Marquis MD 01/28/2019 Z71.51 Drug abuse counseling and surveillance of Brian Marquis MD drug abuser Plan of Treatment Future Appointment(s):02/23/2019 4:20 pm - Fredrick Silver M.D. at [facility] Wvefiqnp29/04/2019 - Fredrick Silver M.D.B18.2 Chronic viral hepatitis CFollow up:3 weeks Functional Status Description No Information Available Mental Status Description No Information Available Referrals Refer to Dr Reason for Referral Status Appt Date Fredrick Silver MD Chronic Hepatitis C, only took 1-2 weeks Sent 02/02 of [facility] before moving out of [facility]. [address] [facility] [address] [place] [address] [place] [address] [phone]
[2019-02-05 03:19] VITALS: BP 132/72
[2019-02-05 03:22] LABS: TSH (Thyroid Stimulating Horm) 3.24 mcIU/mL (0.34-5.60)
== END 2019-02-05 03:12 | disposition home or self-care (01) ==
LOC: ED 02:09
DX: F41.9 Anxiety disorder, unspecified (principal); G47.00 Insomnia, unspecified; F32.9 Major depressive disorder, single episode, unspecified; Z87.891 Personal history of nicotine dependence; Z79.899 Other long term (current) drug therapy; Z88.8 Allergy status to other drugs, medicaments and biological substances
CPT/HCPCS: 36415; 80053; 80320; 84443; 85025; 93005; 99283; G0480

== ENCOUNTER 2019-02-05 20:34 | Emergency (ER) | payer MEDICAID ==
--- NOTE | 2019-02-05 21:46 | ED ---
Psychiatric Complaint - HPI Summary HPI Summary: Patient complains of being unable to sleep for 2 days. Patient states he took melatonin yesterday and came to the ED because he said he didn't feel right after taking it. Is now afraid to take more melatonin to help him sleep. Patient has history of schizoaffective disorder and depression. Denies SI, HI, any other symptoms, pain or injury. - History Of Current Complaint Chief Complaint: EDGeneral Time Seen by Provider: 02/05/19 21:34 Hx Obtained From: Patient Onset/Duration: Gradual Onset, Lasting Days Timing: Constant Severity Initially: Moderate Severity Currently: Moderate Alleviating Factor(s): Nothing Related History: Positive For: Prior Psychiatric Issues - Allergies/Home Medications Allergies/Adverse Reactions: Allergies Allergy/AdvReac Type Severity Reaction Status Date / Time haloperidol [From Haldol] Allergy Intermediate See Comment Verified 01/16/19 14: 54 PMH/Surg Hx/FS Hx/Imm Hx Endocrine/Hematology History: Denies: Hx Anticoagulant Therapy, Hx Blood Disorders, Hx Diabetes Cardiovascular History: Denies: Hx Hypertension Respiratory History: Denies: Hx Asthma History: Denies: Hx Dialysis Sensory History: Denies: Hx Cataracts, Hx Contacts or Glasses, Hx Eye Injury, Hx Eye Prosthesis, Hx Glaucoma, Hx Hearing Aid Opthamlomology History: Denies: Hx Cataracts, Hx Contacts or Glasses, Hx Eye Injury, Hx Eye Prosthesis, Hx Glaucoma EENT History: Denies: Hx Deafness Neurological History: Denies: Hx Dementia Psychiatric History: Reports: Hx Depression, Hx Inpatient Treatment, Hx Community Mental Health Tx, Hx Schizophrenia, Hx Suicide Attempt, Hx Substance Abuse Denies: Hx Eating Disorder, Hx of Violent Episodes Against Others - Surgical History Surgery Procedure, Year, and Place: Patient reports past hx of knee injury, 2013. - Immunization History Date of Tetanus Vaccine: unk Date of Influenza Vaccine: unk Infectious Disease History: No Infectious Disease History: Reports: Hx Hepatitis - HEP C+ Denies: Traveled Outside the [place] in Last 30 Days - Family History Known Family History: Positive: Other - mental health disorders - Social History Alcohol Use: None Alcohol Amount: quit drinking Hx Substance Use: Yes Substance Use Type: Reports: None Substance Use Comment - Amount & Last Used: Patient using heroin or cocaine within the last 3 months Hx Tobacco Use: Yes Smoking Status (MU): Former Smoker Type: Cigarettes Have You Smoked in the Last Year: Yes Review of Systems Constitutional: Negative Eyes: Negative ENT: Negative Cardiovascular: Negative Respiratory: Negative Gastrointestinal: Negative Genitourinary: Negative Musculoskeletal: Negative Skin: Negative Neurological: Negative Psychological: Normal All Other Systems Reviewed And Are Negative: Yes Physical Exam Triage Information Reviewed: Yes Vital Signs On Initial Exam: Initial Vitals Temp Pulse Resp BP Pulse Ox 97.7 F 106 20 143/105 98 02/05/19 20:36 02/05/19 20:36 02/05/19 20:36 02/05/19 20:36 02/05/19 20:36 Vital Signs Reviewed: Yes Appearance: Positive: Well-Appearing Skin: Positive: Warm Head/Face: Positive: Normal Head/Face Inspection Eyes: Positive: Normal Neck: Positive: Supple Respiratory/Lung Sounds: Positive: Clear to Auscultation Cardiovascular: Positive: Normal Abdomen Description: Positive: Nontender Musculoskeletal: Positive: Normal Neurological: Positive: Normal Psychiatric: Positive: Normal AVPU Assessment: Alert - Willa Coma Scale Best Eye Response: 4 - Spontaneous Best Motor Response: 6 - Obeys Commands Best Verbal Response: 5 - Oriented Coma Scale Total: 15 Procedures - Sedation Patient Received Moderate/Deep Sedation with Procedure: No Diagnostics - Vital Signs Vital Signs Temp Pulse Resp BP Pulse Ox 02/05/19 20:36 97.7 F 106 20 143/105 98 - Laboratory Lab Statement: Any lab studies that have been ordered have been reviewed, and results considered in the medical decision making process. Course/Dx - Course Course Of Treatment: Patient complains of being unable to sleep for 2 days. Patient states he took melatonin yesterday and came to the ED because he said he didn't feel right after taking it. Is now afraid to take more melatonin to help him sleep. Patient has history of schizoaffective disorder and depression. Denies SI, HI, any other symptoms, pain or injury. Vital signs within normal limits. Patient given 2 tablets of hydroxyzine 50 mg to take with him with recommendation to take one a night. Patient has a therapist and will follow-up with him for prescription for insomnia if necessary. - Differential Dx/Clinical Impression Provider Diagnosis: Insomnia Discharge ED - Sign-Out/Discharge Documenting (check all that apply): Patient Departure - Discharge Plan Condition: Stable Disposition: HOME Patient Education Materials: Insomnia (ED) Referrals: No Primary Care Phys,NOPCP [Primary Care Provider] - Additional Instructions: Take 1 hydroxyzine tablet before going to bed each night for the next 2 nights. Follow-up with your therapist for a prescription for insomnia if necessary. - Billing Disposition and Condition Condition: STABLE Disposition: Home
[2019-02-05 22:46] VITALS: BP 127/80
[2019-02-05 23:12] LABS: HIV 4th Generation Nonreactive (Nonreactive)
== END 2019-02-05 22:41 | disposition home or self-care (01) ==
LOC: ED 20:34
DX: G47.00 Insomnia, unspecified (principal); F32.9 Major depressive disorder, single episode, unspecified; F25.9 Schizoaffective disorder, unspecified; Z87.891 Personal history of nicotine dependence; Z88.8 Allergy status to other drugs, medicaments and biological substances
CPT/HCPCS: 36415; 87389; 99282

== ENCOUNTER 2019-02-12 11:47 | Emergency (ER) | payer MEDICAID ==
--- NOTE | 2019-02-12 11:58 | ED ---
Psychiatric Complaint - HPI Summary HPI Summary: 28-year-old malewith a significant past medical history of hepatitis C and multiple mental health disorders including schizophrenia, past suicide attempt, substance abuse, history of violent episodes against others was brought to the emergency room by EMS with a chief complaint of feeling dizzy every time I talk. Patient states his symptoms began 2 days ago after getting his Invega shot. He states the symptoms are due to an increased dose and his Invega shot. He states this is a regular occurrence for him after his medication is given. He states every time I talk I did dizzy and want to . He says all he wanted to because my girlfriend broke up with me in 2009 . Patient admits to a history of suicide attempts by substance abuse and states he has a plan to kill himself today. The patient was asked if he wants to kill himself today and he said yes. He denies recent recreational drug use, alcohol use, tobacco use. He states he does not feel safe at home does live alone. He denies axis firearms. He states he does not see a counselor. He denies any physical pain such as headaches, chest pain, abdominal pain, pain with urination, fevers. He is very interested in the mental health examination today. His recently seen in this emergency department 7 days ago for a similar complaint after he took one [id number] melatonin. At this time he was discharged home and was told to follow up with [facility] as soon as possible. - History Of Current Complaint Time Seen by Provider: 02/12/19 11:49 Hx Obtained From: Patient Onset/Duration: Sudden Onset Timing: Constant Aggravating Factor(s): Recent Stress Alleviating Factor(s): Nothing Associated Signs And Symptoms: Positive: Sleep Disturbance, Appetite Change Related History: Positive For: Prior Psychiatric Issues, Admissions Related To Substance Abuse Has Suicidal: Reports: Thoughts, With A Plan, Demonstrates Gesture, Has Prior Attempt(s) - Risk Factor(s) Completed Suicide Risk Factors: Male, White [place], Living Alone, Past Suicide Attempt - Allergies/Home Medications Allergies/Adverse Reactions: Allergies Allergy/AdvReac Type Severity Reaction Status Date / Time haloperidol [From Haldol] Allergy Intermediate See Comment Verified 01/16/19 14: 54 Home Medications: Home Medications traZODone TAB* [Desyrel TAB*] 50 mg PO BEDTIME 02/12/19 [History Confirmed 02/12] PMH/Surg Hx/FS Hx/Imm Hx Endocrine/Hematology History: Denies: Hx Anticoagulant Therapy, Hx Blood Disorders, Hx Diabetes Cardiovascular History: Denies: Hx Hypertension Respiratory History: Denies: Hx Asthma History: Denies: Hx Dialysis Sensory History: Denies: Hx Cataracts, Hx Contacts or Glasses, Hx Eye Injury, Hx Eye Prosthesis, Hx Glaucoma, Hx Deafness, Hx Hearing Aid Opthamlomology History: Denies: Hx Cataracts, Hx Contacts or Glasses, Hx Eye Injury, Hx Eye Prosthesis, Hx Glaucoma Neurological History: Denies: Hx Dementia Psychiatric History: Reports: Hx Depression, Hx Inpatient Treatment, Hx Community Mental Health Tx, Hx Schizophrenia, Hx Suicide Attempt, Hx Substance Abuse Denies: Hx Eating Disorder, Hx of Violent Episodes Against Others - Surgical History Surgery Procedure, Year, and Place: Patient reports past hx of knee injury, 2013. - Immunization History Date of Tetanus Vaccine: unk Date of Influenza Vaccine: unk Infectious Disease History: Reports: Hx Hepatitis - HEP C+ - Family History Known Family History: Positive: Other - mental health disorders - Social History Alcohol Use: None Alcohol Amount: quit drinking Hx Substance Use: Yes Substance Use Type: Reports: None Substance Use Comment - Amount & Last Used: Patient using heroin or cocaine within the last 3 months Hx Tobacco Use: Yes Smoking Status (MU): Former Smoker Type: Cigarettes Have You Smoked in the Last Year: Yes Review of Systems Constitutional: Negative Cardiovascular: Negative Respiratory: Negative Gastrointestinal: Negative Neurological: Other - dizzy Positive: Anxious, Depressed All Other Systems Reviewed And Are Negative: Yes Physical Exam Triage Information Reviewed: Yes Vital Signs Reviewed: Yes Appearance: Positive: Well-Appearing, No Pain Distress, Well-Nourished Skin: Positive: Warm, Skin Color Reflects Adequate Perfusion Eyes: Positive: Normal, EOMI, ANSELMO, Conjunctiva Clear ENT: Positive: Hearing grossly normal. Negative: Muffled voice Respiratory/Lung Sounds: Positive: Clear to Auscultation, Breath Sounds Present Cardiovascular: Positive: RRR, S1, S2 Abdomen Description: Positive: Nontender, Soft Bowel Sounds: Positive: Present Musculoskeletal: Positive: Normal, Strength/ROM Intact Neurological: Positive: Sensory/Motor Intact, Alert, Oriented to Person Place, Time, Normal Gait, Speech Normal. Negative: Facial Symmetry Psychiatric: Positive: Normal, Depressed AVPU Assessment: Alert Procedures - Sedation Patient Received Moderate/Deep Sedation with Procedure: No Diagnostics - Laboratory Result Diagrams: 02/12/19 12:07 02/12/19 12:07 Lab Statement: Any lab studies that have been ordered have been reviewed, and results considered in the medical decision making process. Course/Dx - Course Course Of Treatment: Patient was evaluated in the emergency Department today with complaints of feeling dizzy every time he talks after receiving an invega shot 2 days ago. he was also evaluated for suicidal ideation with a plan. Upon arrival to the emergency department he was seen and evaluated. This is when he expressed significant suicidal ideations and he was placed under constant observation and put into a safe room. He was changed into hospital scrubs and laboratory and urine studies were obtained. Laboratory results showed no signs of anemia, leukocytosis, electrolyte abnormality, renal or hepatic failure. Toxicology screen was negative. He was medically cleared and psychiatric services came to evaluate him. - Differential Dx/Clinical Impression Differential Diagnosis/HQI/PQRI: Positive: Acute Psychosis, Alcohol Intoxication , Anxiety, Bipolar Disorder, Depression, Schizophrenia, Suicide Attempt, Suicidal Ideation, Suicidal Gesture Provider Diagnosis: Depression Discharge ED - Sign-Out/Discharge Documenting (check all that apply): Sign-Out Patient Signing out patient TO: Angelica Bahena Receiving patient FROM: Salvatore Medina - Discharge Plan Condition: Stable Referrals: [facility] [Other] (YOU HAVE AN APPOINTMENT WITH DR. BURNHAM ON 02-19-19 AT 2:00 PM AT [facility]) No Primary Care Phys,NOPCP [Primary Care Provider] - - Billing Disposition and Condition Condition: STABLE
[2019-02-12 12:21] LABS: ABS Eosinophils 0.1 10^3/ul (0-0.6); ABS Monocytes 0.6 10^3/ul (0-0.8); ABS Neutrophils 5.7 10^3/ul (1.5-7.7); Eosinophil % 0.8 %; Hematocrit 43 % (42-52); Hemoglobin 15.2 g/dL (14.0-18.0); Lymphocyte % 24.2 %; Mean Corpuscular HGB Conc 35 g/dL (31-36); Mean Corpuscular Hemoglobin 30 pg (27-31); Mean Corpuscular Volume 85 fL (80-94); Mean Platelet Volume 7.6 fL (7.4-10.4); Platelet Count 252 10^3/uL (150-450); Red Blood Count 5.03 10^6 /uL (4.18-5.48); Red Cell Distribution Width 12 % (10-15); White Blood Count 8.4 10^3/uL (3.5-10.8)
[2019-02-12 12:40] LABS: ALT 62 U/L (7-52); AST 28 U/L (13-39); Albumin 4.4 g/dL (3.2-5.2); Albumin/Globulin Ratio 1.6 (1-3); Alkaline Phosphatase 74 U/L (34-104); Anion Gap 6 mmol/L (2-11); Blood Urea Nitrogen 20 mg/dL (6-24); CO2 Carbon Dioxide 26 mmol/L (22-32); Calcium 9.4 mg/dL (8.6-10.3); Chloride 107 mmol/L (101-111); EGFR African American 146.6 (>60); EGFR Non-African American 121.2 (>60); Globulin 2.8 g/dL (2-4); Glucose 115 mg/dL (70-100); Sodium 139 mmol/L (135-145); Total Protein 7.2 g/dL (6.4-8.9)
[2019-02-12 12:56] LABS: Urine Appearance Cloudy; Urine Bilirubin Negative (Negative); Urine Blood Negative (Negative); Urine Color Yellow; Urine Glucose Negative (Negative); Urine Ketones Negative (Negative); Urine Nitrite Negative (Negative); Urine Protein Negative (Negative); Urine Specific Gravity 1.023 (1.010-1.030); Urine Urobilinogen Negative (Negative)
[2019-02-12 13:04] LABS: Acetaminophen < 15 mcg/mL; Alcohol < 10 mg/dL (<10); Salicylate < 2.50 mg/dL (<30)
[2019-02-12 13:12] LABS: Urine Benzodiazepine Screen None Detected (None Detect); Urine Opiates Screen None Detected (None Detect)
[2019-02-12 13:19] LABS: TSH (Thyroid Stimulating Horm) 1.88 mcIU/mL (0.34-5.60)
--- NOTE | 2019-02-12 18:17 | ED ---
Progress - Consult/PCP Time Called: 11:55 Course/Dx - Course Course Of Treatment: Patient was evaluated in the emergency Department today with complaints of feeling dizzy every time he talks after receiving an invega shot 2 days ago. he was also evaluated for suicidal ideation with a plan. Upon arrival to the emergency department he was seen and evaluated. This is when he expressed significant suicidal ideations and he was placed under constant observation and put into a safe room. He was changed into hospital scrubs and laboratory and urine studies were obtained. Laboratory results showed no signs of anemia, leukocytosis, electrolyte abnormality, renal or hepatic failure. Toxicology screen was negative. He was medically cleared and psychiatric services came to evaluate him. after [facility] patient will be discharged. patient was seen ambulating in waiting room without any difficulty. - Diagnoses Provider Diagnoses: Depression Discharge ED - Sign-Out/Discharge Documenting (check all that apply): Patient Departure, Receiving Sign-Out Receiving patient FROM: Salvatore Medina - Discharge Plan Condition: Stable Disposition: HOME Patient Education Materials: Anxiety (ED) Referrals: [facility] [Other] (YOU HAVE AN APPOINTMENT WITH DR. BURNHAM ON 02-19-19 AT 2:00 PM AT [facility]) No Primary Care Phys,NOPCP [Primary Care Provider] - - Billing Disposition and Condition Condition: STABLE Disposition: Home
[2019-02-13 02:16] VITALS: BP 119/73
== END 2019-02-13 | disposition home or self-care (01) ==
LOC: ED 11:47
DX: F32.9 Major depressive disorder, single episode, unspecified (principal); F20.9 Schizophrenia, unspecified; Z87.891 Personal history of nicotine dependence; Z79.899 Other long term (current) drug therapy; Z88.8 Allergy status to other drugs, medicaments and biological substances; Z86.19 Personal history of other infectious and parasitic diseases
CPT/HCPCS: 36415; 80053; 80307; 80320; 80329; 81003; 84443; 85025; 99284; G0480

== ENCOUNTER 2019-02-13 08:49 | Emergency (ER) | payer MEDICAID ==
--- NOTE | 2019-02-13 08:59 | ED ---
Psychiatric Complaint - HPI Summary HPI Summary: This pt is a 28 y/o male, with hx of schizophrenia and substance abuse, presenting to [facility]. Pt reports he has been having visual hallucinations and states "I'm so scared. You keep discharging me." He notes he has pain from the hallucinations as he states " they are attacking my body." Pt describes he is "feeling like he is dying" and is tearful while giving history. Denies SI or HI. Pt was here yesterday, 02/12/19, for SI and was cleared by psych. Pt reports he gets Invega Sustenna shots and his last one was a couple of days ago. - History Of Current Complaint Time Seen by Provider: 02/13/19 08:51 Hx Obtained From: Patient, EMS Onset/Duration: Still Present Timing: Constant Severity Currently: Moderate Character: Manic, Fearful Aggravating Factor(s): Nothing Alleviating Factor(s): Nothing Associated Signs And Symptoms: Positive: Hallucinating Related History: Positive For: Prior Psychiatric Issues Has Suicidal: Denies: Thoughts, With A Plan Has Homicidal: Denies: Thoughts, With A Plan - Allergies/Home Medications Allergies/Adverse Reactions: Allergies Allergy/AdvReac Type Severity Reaction Status Date / Time haloperidol [From Haldol] Allergy Intermediate See Comment Verified 01/16/19 14: 54 PMH/Surg Hx/FS Hx/Imm Hx Endocrine/Hematology History: Denies: Hx Anticoagulant Therapy, Hx Blood Disorders, Hx Diabetes Cardiovascular History: Denies: Hx Hypertension Respiratory History: Denies: Hx Asthma History: Denies: Hx Dialysis Sensory History: Denies: Hx Cataracts, Hx Contacts or Glasses, Hx Eye Injury, Hx Eye Prosthesis, Hx Glaucoma, Hx Deafness, Hx Hearing Aid Opthamlomology History: Denies: Hx Cataracts, Hx Contacts or Glasses, Hx Eye Injury, Hx Eye Prosthesis, Hx Glaucoma Neurological History: Denies: Hx Dementia Psychiatric History: Reports: Hx Depression, Hx Inpatient Treatment, Hx Community Mental Health Tx, Hx Schizophrenia, Hx Suicide Attempt, Hx Substance Abuse Denies: Hx Eating Disorder, Hx of Violent Episodes Against Others - Surgical History Surgical History: Yes Surgery Procedure, Year, and Place: Patient reports past hx of knee injury, 2013. - Immunization History Date of Tetanus Vaccine: unk Date of Influenza Vaccine: unk Infectious Disease History: Reports: Hx Hepatitis - HEP C+ - Family History Known Family History: Positive: Other - mental health disorders - Social History Alcohol Use: None Alcohol Amount: quit drinking Hx Substance Use: Yes Substance Use Type: Reports: None Substance Use Comment - Amount & Last Used: Patient using heroin or cocaine within the last 3 months Hx Tobacco Use: Yes Smoking Status (MU): Former Smoker Type: Cigarettes Have You Smoked in the Last Year: Yes Review of Systems Negative: Fever Musculoskeletal: Other - POSITIVE: pain all over body Psychological: Other - POSITIVE: visual hallucinations, afraid, tearful Negative: Other - NEGATIVE: SI or HI All Other Systems Reviewed And Are Negative: Yes Physical Exam - Summary Physical Exam Summary: Constitutional: Well-developed, Well-nourished, Alert. Mild distress secondary to anxiety. Skin: Warm, Dry HENT: Normocephalic; Atraumatic Eyes: Conjunctiva normal Neck: Musculoskeletal ROM normal neck. (-) JVD, (-) Stridor, (-) Nuchal rigidity Cardio: Rhythm regular, rate normal, Heart sounds normal; Intact distal pulses; Radial pulses are 2+ and symmetric. (-) Murmur Pulmonary/Chest wall: Effort normal. (-) Respiratory distress, (-) Wheezes, (-) Rales Abd: Soft, (-) tenderness, (-) Distension, (-) Guarding, (-) Rebound Musculoskeletal: (-) Edema Lymph: (-) Cervical adenopathy Neuro: Alert, Oriented x3 Psych: He is anxious, tearful, reporting hallucinations. Denies SI or HI. Triage Information Reviewed: Yes Vital Signs On Initial Exam: Initial Vitals Temp Pulse Resp BP Pulse Ox 98.5 F 89 16 133/86 96 02/13/19 08:56 02/13/19 08:56 02/13/19 08:56 02/13/19 08:56 02/13/19 08:56 Vital Signs Reviewed: Yes Procedures - Sedation Patient Received Moderate/Deep Sedation with Procedure: No Diagnostics - Laboratory Result Diagrams: 02/13/19 09:11 02/13/19 09:11 Lab Statement: Any lab studies that have been ordered have been reviewed, and results considered in the medical decision making process. Re-Evaluation - Re-Evaluation First Eval Re-Evaluation Time: 11:38 Comment: Dr. Prasad reports pt was in the ED yesterday, was evaluated and discharged. Dr. Prasad notes pt had asked the staff yesterday if he would get admitted if he returned today with SI. Per Dr. Prasad, pt will be discharged. Course/Dx - Course Course Of Treatment: 28 y/o male w hx schizophrenia and polysubstance use p/w hallucinations. - seen and cleared by MH yesterday, reporting worsening hallucinations since getting invega shot. Check labs CPK given possible mylagias , naveed have MH team see. - Differential Dx/Clinical Impression Provider Diagnosis: Schizophrenia Discharge ED - Sign-Out/Discharge Documenting (check all that apply): Patient Departure - Discharge home - Discharge Plan Condition: Stable Disposition: HOME Referrals: No Primary Care Phys,NOPCP [Primary Care Provider] - - Billing Disposition and Condition Condition: STABLE Disposition: Home - Attestation Statements Document Initiated by Scribe: Yes Documenting Scribe: Dea Escalante Provider For Whom Scribe is Documenting (Include Credential): Karen Pickett MD Scribe Attestation: Dea Penaloza, scribed for Karen Pickett MD on 02/13/19 at 1159. Scribe Documentation Reviewed: Yes Provider Attestation: The documentation as recorded by the Dea yung accurately reflects the service I personally performed and the decisions made by Karen regan MD Status of Scribe Document: Viewed
[2019-02-13 09:16] LABS: ABS Basophils 0.1 10^3/ul (0-0.2); ABS Lymphocytes 1.8 10^3/ul (1.0-4.8); ABS Monocytes 0.4 10^3/ul (0-0.8); Eosinophil % 0.6 %; Hematocrit 44 % (42-52); Hemoglobin 15.1 g/dL (14.0-18.0); Lymphocyte % 24.3 %; Mean Corpuscular HGB Conc 34 g/dL (31-36); Mean Corpuscular Hemoglobin 29 pg (27-31); Mean Corpuscular Volume 86 fL (80-94); Mean Platelet Volume 7.7 fL (7.4-10.4); Nucleated Red Blood Cells % 0.2; Platelet Count 243 10^3/uL (150-450); Red Blood Count 5.15 10^6 /uL (4.18-5.48); Red Cell Distribution Width 12 % (10-15); White Blood Count 7.3 10^3/uL (3.5-10.8)
[2019-02-13 09:37] LABS: ALT 65 U/L (7-52); AST 31 U/L (13-39); Albumin 4.6 g/dL (3.2-5.2); Albumin/Globulin Ratio 1.5 (1-3); Alkaline Phosphatase 76 U/L (34-104); Anion Gap 8 mmol/L (2-11); BUN/Creatinine Ratio 21.6 (8-20); Blood Urea Nitrogen 19 mg/dL (6-24); CO2 Carbon Dioxide 25 mmol/L (22-32); Calcium 9.5 mg/dL (8.6-10.3); Chloride 106 mmol/L (101-111); Creatine Kinase 67 U/L (10-223); EGFR African American 125.7 (>60); EGFR Non-African American 103.9 (>60); Glucose 114 mg/dL (70-100); Potassium 3.8 mmol/L (3.5-5.0); Sodium 139 mmol/L (135-145); Total Protein 7.6 g/dL (6.4-8.9)
[2019-02-13 09:51] LABS: Urine Appearance Clear; Urine Bilirubin Negative (Negative); Urine Blood Negative (Negative); Urine Color Yellow; Urine Glucose Negative (Negative); Urine Ketones Negative (Negative); Urine Nitrite Negative (Negative); Urine Protein Negative (Negative); Urine Specific Gravity 1.025 (1.010-1.030); Urine Urobilinogen Negative (Negative)
[2019-02-13 10:01] LABS: Acetaminophen < 15 mcg/mL; Alcohol < 10 mg/dL (<10); Salicylate < 2.50 mg/dL (<30)
[2019-02-13 10:09] LABS: Urine Benzodiazepine Screen None Detected (None Detect); Urine Opiates Screen None Detected (None Detect)
[2019-02-13 10:14] LABS: TSH (Thyroid Stimulating Horm) 2.48 mcIU/mL (0.34-5.60)
[2019-02-13 13:57] VITALS: BP 127/75
== END 2019-02-13 13:37 | disposition home or self-care (01) ==
LOC: ED 08:49
DX: F20.9 Schizophrenia, unspecified (principal); F32.9 Major depressive disorder, single episode, unspecified; Z87.891 Personal history of nicotine dependence; Z86.19 Personal history of other infectious and parasitic diseases; Z88.8 Allergy status to other drugs, medicaments and biological substances; Z79.899 Other long term (current) drug therapy
CPT/HCPCS: 36415; 80053; 80307; 80320; 80329; 81003; 82550; 84443; 85025; 99285; G0480

== ENCOUNTER 2019-03-09 07:44 | Emergency (ER) | payer MEDICAID ==
--- NOTE | 2019-03-09 09:17 | ED ---
Psychiatric Complaint - HPI Summary HPI Summary: Patient is a 28-year-old male who presents to [facility] via EMS with a chief complaint of "I see red when I walk." Patient states this has been going on for weeks, but is seemingly worse today. Also has headache and dizziness that is worse when he speaks. Denies recreational drug or alcohol use today. States he does not want to take medication for his headache or dizziness. Agrees to speak with [facility], denies SI or HI. PMH significant for schizophrenia, polysubstance abuse, depression, and suicide attempt. Currently homeless. States he has had this in the psat and talking makes it worse. He feels it is d/t to his sleep deprivation. Currently denying any SI/HI. - History Of Current Complaint Chief Complaint: EDGeneral Time Seen by Provider: 03/09/19 07:53 Hx Obtained From: Patient, EMS Onset/Duration: Sudden Onset Timing: Constant Severity Initially: Mild Severity Currently: Mild Aggravating Factor(s): Nothing Alleviating Factor(s): Nothing Associated Signs And Symptoms: Positive: Hallucinating - hearing voice Related History: Positive For: Prior Psychiatric Issues - Risk Factor(s) Completed Suicide Risk Factors: Male, White Colombian - Allergies/Home Medications Allergies/Adverse Reactions: Allergies Allergy/AdvReac Type Severity Reaction Status Date / Time haloperidol [From Haldol] Allergy Intermediate See Comment Verified 01/16/19 14: 54 PMH/Surg Hx/FS Hx/Imm Hx Previously Healthy: Yes Endocrine/Hematology History: Denies: Hx Anticoagulant Therapy, Hx Blood Disorders, Hx Diabetes Cardiovascular History: Denies: Hx Hypertension Respiratory History: Denies: Hx Asthma History: Denies: Hx Dialysis Sensory History: Denies: Hx Cataracts, Hx Contacts or Glasses, Hx Eye Injury, Hx Eye Prosthesis, Hx Glaucoma, Hx Deafness, Hx Hearing Aid Opthamlomology History: Denies: Hx Cataracts, Hx Contacts or Glasses, Hx Eye Injury, Hx Eye Prosthesis, Hx Glaucoma Neurological History: Denies: Hx Dementia Psychiatric History: Reports: Hx Depression, Hx Inpatient Treatment, Hx Community Mental Health Tx, Hx Schizophrenia, Hx Suicide Attempt, Hx Substance Abuse Denies: Hx Eating Disorder, Hx of Violent Episodes Against Others - Surgical History Surgery Procedure, Year, and Place: Patient reports past hx of knee injury, 2013. - Immunization History Date of Tetanus Vaccine: unk Date of Influenza Vaccine: unk Hx Pertussis Vaccination: No Immunizations Up to Date: Yes Infectious Disease History: No Infectious Disease History: Reports: Hx Hepatitis - HEP C+ Denies: Traveled Outside the [place] in Last 30 Days - Family History Known Family History: Positive: Other - mental health disorders - Social History Occupation: Unemployed Lives: Alone - homeless Alcohol Use: None Alcohol Amount: quit drinking Hx Substance Use: Yes Substance Use Type: Reports: None Substance Use Comment - Amount & Last Used: Patient using heroin or cocaine within the last 3 months Hx Tobacco Use: Yes Smoking Status (MU): Former Smoker Type: Cigarettes Have You Smoked in the Last Year: Yes Review of Systems Constitutional: Negative Positive: Fatigue. Negative: Fever, Chills, Skin Diaphoresis Eyes: Negative Negative: Photophobia, Blurred Vision ENT: Negative Cardiovascular: Negative Negative: Palpitations, Chest Pain Respiratory: Negative Negative: Shortness Of Breath, Cough Gastrointestinal: Negative Negative: Abdominal Pain, Vomiting, Diarrhea, Nausea Genitourinary: Negative Positive: no symptoms reported Musculoskeletal: Negative Negative: Myalgia Skin: Negative Positive: Headache Psychological: Normal All Other Systems Reviewed And Are Negative: Yes Physical Exam Triage Information Reviewed: Yes Vital Signs On Initial Exam: Initial Vitals Pulse BP Pulse Ox 75 131/92 96 03/09/19 07:51 03/09/19 07:51 03/09/19 07:51 Vital Signs Reviewed: Yes Appearance: Positive: Well-Appearing, No Pain Distress, Well-Nourished Skin: Positive: Warm, Skin Color Reflects Adequate Perfusion, Dry Head/Face: Positive: Normal Head/Face Inspection Eyes: Positive: Normal, EOMI, ANSELMO ENT: Positive: Normal ENT inspection, Hearing grossly normal Neck: Positive: Supple, Nontender, No Lymphadenopathy Respiratory/Lung Sounds: Positive: Clear to Auscultation, Breath Sounds Present. Negative: Rales, Rhonchi, Wheezes Cardiovascular: Positive: Normal, RRR, S1, S2. Negative: Murmur, Rub Abdomen Description: Positive: Nontender, No Organomegaly, Soft Bowel Sounds: Positive: Present Musculoskeletal: Positive: Normal Neurological: Positive: Normal, Sensory/Motor Intact, CN Intact II-III, Normal Gait - Willa Coma Scale Best Eye Response: 4 - Spontaneous Best Motor Response: 6 - Obeys Commands Best Verbal Response: 5 - Oriented Coma Scale Total: 15 Procedures - Sedation Patient Received Moderate/Deep Sedation with Procedure: No Diagnostics - Vital Signs Vital Signs Temp Pulse Resp BP Pulse Ox 03/09/19 08:00 107 98 03/09/19 07:52 99.0 F 70 16 131/92 98 03/09/19 07:51 75 131/92 96 - Laboratory Lab Statement: Any lab studies that have been ordered have been reviewed, and results considered in the medical decision making process. Course/Dx - Course Course Of Treatment: Patient is requesting mental health evaluation. He states "I see red" when I wake up and am dizzy. He states these symptoms are present when he hears voices. Patient denying hearing any voices at this time. He denies seeing red at this time. He states symptoms are worse when he talks, better with rest. He believes he is sleep deprived. He is also having some intermittent dizziness, however he is refusing dizziness medications on arrival. He states he would like to speak with someone in the mental health unit. Per Dr. Prasad, patient okay to be discharged at this time. He has a follow-up tomorrow at [facility]. On reevaluation, patient states he is feeling improved and is okay for discharge at this time. - Differential Dx/Clinical Impression Differential Diagnosis/HQI/PQRI: Positive: Acute Psychosis, Depression, Schizophrenia Provider Diagnosis: Auditory hallucinations, Dizziness Discharge ED - Sign-Out/Discharge Documenting (check all that apply): Patient Departure - Discharge Plan Condition: Stable Disposition: HOME Patient Education Materials: Hallucinations (ED) Referrals: No Primary Care Phys,NOPCP [Primary Care Provider] - Additional Instructions: Please follow up with your counselor tomorrow - Billing Disposition and Condition Condition: STABLE Disposition: Home
--- OUTSIDE RECORDS SUMMARY | 2019-03-09 09:19 | XMS REPORT ---
:1990 Author Organization [facility] Care Team Providers Name Role Phone Macrina Ellis Primary Care Physician Unavailable Allergies, Adverse Reactions, Alerts Allergy Code CodeSystem Reaction Severity Criticality Status Start Substance Date Moderate Medications Medication Medication Medication Start Stop Route Dose Status Fill Code CodeSystem Date Date Instructions Invega 887276 RxNorm 2018-04 IM 156 active Inject 1 syringe Sustenna 1-12 mg/mL 1 intramuscularly syringe every four weeks every for 28 day(s) four weeks trazodone [id number] RxNorm 2018-04 oral 50 mg 1 active Take 1 tablet 1-12 tablet at bedtime as at needed for 30 bedtime day(s) Invega [id number] RxNorm 2018-04 IM 156 completed for 28 Sustenna 1-07 11-12 mg/mL day(s) syringe Invega [id number] RxNorm 2018-04 IM 156 completed for 1 Sustenna 0-30 11-12 mg/mL day(s) syringe Problems Problem Name Code CodeSystem Alternate Alternate Start End Status Narrative Code CodeSystem Date Date Schizoaffective [id number] SNOMED-CT 2018-04 Active disorder, 0-01 Depressive type Relevant diagnostic tests/laboratory data Narrative No Information Procedures Procedure Code CodeSystem Target Date of Status Service Device Device Device Name Site Procedure Delivery Code Name UID Location SNOMED-CT () 2018-12-30 complete Mental d Health- [address], [id number] Psychotherap [id number] SNOMED-CT () 2019-01-06 complete Mental y, 45 04 d Health- minutes with [address], [id number] [id number] Psychotherap [id number] SNOMED-CT () 2019-01-13 complete Mental y, 45 04 d Health- minutes with [address], [id number] SNOMED-CT () 2019-01-27 complete Mental d Health- [address], [id number] [id number] Psychotherap [id number] SNOMED-CT () 2019-01-20 complete Mental y, 45 04 d Health- minutes with [facility] patient [address], [id number] [id number] Psychiatric [id number] SNOMED-CT () 2019-02-05 complete Mental diagnostic 85 d Health- evaluation [facility] services [address] [place] [address], [id number] [id number] Psychotherap [id number] SNOMED-CT () 2019-02-05 complete Mental y, 45 04 d Health- minutes with [facility] patient [address], [id number] [id number] Encounters/Encounter Diagnoses Encounter Name Encounter Diagnosis Diagnosis Name Diagnosis Date of Service Code Code CodeSystem Diagnosis Delivery Location Psychotherapy - [id number] Schizoaffective SNOMED-CT 2019-02-24 Behavioral Individual 30 disorder, Health min Depressive type Clinic , , , Vital Signs No Information Social History Element Description Description Start End Code CodeSystem AdditionalInfo Date Date SexAssignedAtBirth Male 1991-0 M AdministrativeGender 5-18 Hospital Discharge Instructions Reason For Referral Medical Equipment FDA Assessments
--- OUTSIDE RECORDS SUMMARY | 2019-03-09 09:19 | XMS REPORT ---
:1990 Author Organization [facility] Care Team Providers Name Role Phone Macrina Ellis Primary Care Physician Unavailable Allergies, Adverse Reactions, Alerts Allergy Code CodeSystem Reaction Severity Criticality Status Start Substance Date Moderate Medications Medication Medication Medication Start Stop Route Dose Status Fill Code CodeSystem Date Date Instructions trazodone 970705 RxNorm 2018-04 oral 50 mg 1 active Take 1 tablet 1-12 tablet at bedtime as at needed for 30 bedtime day(s) Invega [id number] RxNorm 2018-04- IM 156 completed for 28 Sustenna 1-07 11-12 mg/mL day(s) syringe Invega 997409 RxNorm 2018-04 IM 156 completed for 1 Sustenna 0-30 11-12 mg/mL day(s) syringe Invega [id number] RxNorm 2018-04 IM 156 active Inject 1 syringe Sustenna 1-12 mg/mL 1 intramuscularly syringe every four weeks every for 28 day(s) four weeks Problems Problem Name Code CodeSystem Alternate Alternate Start End Status Narrative Code CodeSystem Date Date Schizoaffective [id number] SNOMED-CT 2018-04 Active disorder, 0-01 Depressive type Relevant diagnostic tests/laboratory data Narrative No Information Procedures Procedure Code CodeSystem Target Date of Status Service Device Device Device Name Site Procedure Delivery Code Name UID Location Psychother [id number] SNOMED-CT () 2019-01-20 completed Mental apy, 45 4 Health- minutes [place] with [facility] patient [address] [place], [place], [id number] [id number] Psychother [id number] SNOMED-CT () 2019-01-06 completed Mental apy, 45 4 Health- minutes [place] with [facility] patient [address], [place], [phone] [phone] Psychother [id number] SNOMED-CT () 2019-01-13 completed Mental apy, 45 4 Health- minutes [place] with [facility] patient [address], [place], [id number] [phone] SNOMED-CT () 2019-01-27 completed Mental Health- [address], [id number] [phone] SNOMED-CT () 2018-12-30 [facility] Mental Health- [address], [id number] [phone] Encounters/Encounter Diagnoses Encounter Encounter Diagnosis Diagnosis Name Diagnosis Date of Service Name Code Code CodeSystem Diagnosis Delivery Location [facility] [id number] Schizoaffective SNOMED-CT 2019-02-10 Behavioral Established disorder, Health patient 10 Depressive type Clinic , , Minutes , Vital Signs No Information Social History Element Description Description Start End Code CodeSystem AdditionalInfo Date Date SexAssignedAtBirth Male 1990-0 M AdministrativeGender 5-18 Hospital Discharge Instructions Reason For Referral Medical Equipment FDA Assessments
[2019-03-09 11:05] VITALS: BP 116/78
== END 2019-03-09 10:53 | disposition home or self-care (01) ==
LOC: ED 07:44
DX: F20.9 Schizophrenia, unspecified (principal); R42 Dizziness and giddiness; Z59.0 Homelessness; Z87.891 Personal history of nicotine dependence; Z88.8 Allergy status to other drugs, medicaments and biological substances
CPT/HCPCS: 99282

== ENCOUNTER 2019-04-03 11:36 | Emergency (ER) | payer MEDICAID ==
--- NOTE | 2019-04-03 12:46 | ED ---
Throat Pain/Nasal Congestion - HPI Summary HPI Summary: 28-year-old male presents to the emergency department today complaining of left ear pain which she states is a 3 out of 10 for 2 days. Patient denies fever. Patient states he had a left ear infection 1 month ago and he states this feels "just like then". Patient otherwise feels well. Patient denies fever, chest pain, abdominal pain, shortness of breath, rash. Family history and social history noncontributory. - History of Current Complaint Chief Complaint: EDEarPain Time Seen by Provider: 04/03/19 12:46 Hx Obtained From: Patient Onset/Duration: Gradual Onset - Allergies/Home Medications Allergies/Adverse Reactions: Allergies Allergy/AdvReac Type Severity Reaction Status Date / Time haloperidol [From Haldol] Allergy Intermediate See Comment Verified 01/16/19 14: 54 PMH/Surg Hx/FS Hx/Imm Hx Endocrine/Hematology History: Denies: Hx Anticoagulant Therapy, Hx Blood Disorders, Hx Diabetes Cardiovascular History: Denies: Hx Hypertension Respiratory History: Denies: Hx Asthma History: Denies: Hx Dialysis Sensory History: Denies: Hx Cataracts, Hx Contacts or Glasses, Hx Eye Injury, Hx Eye Prosthesis, Hx Glaucoma, Hx Deafness, Hx Hearing Aid Opthamlomology History: Denies: Hx Cataracts, Hx Contacts or Glasses, Hx Eye Injury, Hx Eye Prosthesis, Hx Glaucoma Neurological History: Denies: Hx Dementia Psychiatric History: Reports: Hx Depression, Hx Inpatient Treatment, Hx Community Mental Health Tx, Hx Schizophrenia, Hx Suicide Attempt, Hx Substance Abuse Denies: Hx Eating Disorder, Hx of Violent Episodes Against Others - Surgical History Surgery Procedure, Year, and Place: Patient reports past hx of knee injury, 2013. - Immunization History Date of Tetanus Vaccine: unk Date of Influenza Vaccine: unk Infectious Disease History: No Infectious Disease History: Reports: Hx Hepatitis - HEP C+ Denies: Traveled Outside the [place] in Last 30 Days - Family History Known Family History: Positive: Other - mental health disorders - Social History Alcohol Use: None Alcohol Amount: quit drinking Hx Substance Use: Yes Substance Use Type: Reports: None Substance Use Comment - Amount & Last Used: Patient using heroin or cocaine within the last 3 months Hx Tobacco Use: Yes Smoking Status (MU): Former Smoker Type: Cigarettes Have You Smoked in the Last Year: Yes Review of Systems Constitutional: Negative Eyes: Negative Positive: Ear Ache - L Cardiovascular: Negative Respiratory: Negative Gastrointestinal: Negative Genitourinary: Negative Musculoskeletal: Negative Skin: Negative Neurological: Negative Positive: Anxious All Other Systems Reviewed And Are Negative: Yes Physical Exam Triage Information Reviewed: Yes Vital Signs On Initial Exam: Initial Vitals Temp Pulse Resp BP Pulse Ox 98.6 F 74 16 160/99 94 04/03/19 11:57 04/03/19 11:57 04/03/19 11:57 04/03/19 11:57 04/03/19 11:57 Vital Signs Reviewed: Yes Appearance: Positive: Well-Appearing, No Pain Distress, Well-Nourished Skin: Positive: Warm, Skin Color Reflects Adequate Perfusion Eyes: Positive: EOMI, ANSELMO ENT: Positive: Pharynx normal, TM bulging, TM dull, TM red Respiratory/Lung Sounds: Positive: Clear to Auscultation, Breath Sounds Present Cardiovascular: Positive: RRR, S1, S2 Abdomen Description: Positive: Nontender, Soft Bowel Sounds: Positive: Present Musculoskeletal: Positive: Strength/ROM Intact Neurological: Positive: Sensory/Motor Intact, Alert, Oriented to Person Place, Time, Normal Gait, Speech Normal Psychiatric: Positive: Normal AVPU Assessment: Alert Procedures - Sedation Patient Received Moderate/Deep Sedation with Procedure: No Diagnostics - Vital Signs Vital Signs Temp Pulse Resp BP Pulse Ox 04/03/19 11:57 98.6 F 74 16 160/99 94 - Laboratory Lab Statement: Any lab studies that have been ordered have been reviewed, and results considered in the medical decision making process. EENT Course/Dx - Course Course Of Treatment: Patient was evaluated in the emergency department today for ear pain. Patient seen and examined his vitals are stable and he was afebrile. Physical exam showed a bulging erythematous left tympanic membrane consistent with acute otitis media. Right TM was within normal limits. Patient was given Augmentin for otitis media on the left. Patient follow-up with his primary care provider 5 days for further evaluation and management. - Differential Diagnoses Differential Diagnoses: Otitis Media, Perforated TM - Diagnoses Provider Diagnoses: Ear pain, left Discharge ED - Sign-Out/Discharge Documenting (check all that apply): Patient Departure - Discharge Plan Condition: Stable Disposition: HOME Prescriptions: Amoxicillin/Clavulanate TAB* [Augmentin TAB 875*] 875 mg PO BID 7 Days #14 tab Patient Education Materials: Ear Infection (ED) Referrals: Brian Marquis MD [Primary Care Provider] - Additional Instructions: You were see in the emergency department today and diagnosed with an ear infection on the left; called otitis media. You may take Tylenol as needed for pain 650 mg every 6 hours. I have also prescribed an antibiotic called Augmentin which can be picked up at your pharmacy. Please finish the antibiotic even if you feeling better. Take one tablet twice daily for 7 days. Please follow-up with your primary care provider and 5 days for further evaluation and management. Please return to the emergency department immediately if you develop any new or worsening symptoms. - Billing Disposition and Condition Condition: STABLE Disposition: Home - Attestation Statements Provider Attestation: I was available for consult. This patient was seen by the EBER. The patient was not presented to, seen by, or examined by me. Nelson Soares MD
[2019-04-03] MEDS ORDERED: Amoxicillin/Clavulanate TAB* 875 MG PO ONE (13:05)
[2019-04-03 13:32] VITALS: BP 120/66
[2019-04-03 14:13] LABS: HIV 4th Generation Nonreactive (Nonreactive)
== END 2019-04-03 13:24 | disposition home or self-care (01) ==
LOC: ED 11:36
DX: H92.02 Otalgia, left ear (principal); Z87.891 Personal history of nicotine dependence; F32.9 Major depressive disorder, single episode, unspecified
CPT/HCPCS: 36415; 87389; 99282; A9270-GY

== ENCOUNTER 2019-04-11 16:36 | Emergency (ER) | payer MEDICAID, OTHER ==
--- OUTSIDE RECORDS SUMMARY | 2019-04-11 16:50 | XMS REPORT ---
:1990 Author Organization [facility] Care Team Providers Name Role Phone Macrina Ellis Primary Care Physician Unavailable Allergies, Adverse Reactions, Alerts Allergy Code CodeSystem Reaction Severity Criticality Status Start Substance Date Moderate Medications Medication Medication Medication Start Stop Route Dose Status Fill Code CodeSystem Date Date Instructions Invega [id number] RxNorm 2018-04 IM 156 completed for 28 Sustenna 1-07 11-12 mg/mL day(s) syringe Invega 874176 RxNorm 2018-04 IM 156 completed for 1 Sustenna 0-30 11-12 mg/mL day(s) syringe trazodone 226635 RxNorm 2018-04 oral 50 mg 1 active Take 1 tablet 1-12 tablet at bedtime as at needed for 30 bedtime day(s) Invega 920865 RxNorm 2018-04 IM 156 active Inject 1 syringe Sustenna 1-12 mg/mL 1 intramuscularly syringe every four weeks every for 28 day(s) four weeks Problems Problem Name Code CodeSystem Alternate Alternate Start End Status Narrative Code CodeSystem Date Date Schizoaffective [id number] SNOMED-CT 2018-04 Active disorder, 0-01 Depressive type Relevant diagnostic tests/laboratory data Narrative No Information Procedures Procedure Code CodeSystem Target Date of Status Service Device Device Device Name Site Procedure Delivery Code Name UID Location SNOMED-CT () 2018-12-30 complete Mental d Health- [address], [phone] Psychotherap [id number] SNOMED-CT () 2019-01-06 complete Mental y, 45 04 d Health- minutes with [address], [id number] [phone] Psychotherap [id number] SNOMED-CT () 2019-01-13 complete Mental y, 45 04 d Health- minutes with [address], [id number] [phone] SNOMED-CT () 2019-01-27 complete Mental d Health- Christian [address], [phone] [phone] Psychotherap [id number] SNOMED-CT () 2019-01-20 complete Mental y, 45 04 d Health- minutes with [facility] patient [address], [phone] Psychiatric [id number] SNOMED-CT () 2019-02-05 complete Mental diagnostic 85 d Health- evaluation [facility] with medical [address], [phone] Psychotherap [id number] SNOMED-CT () 2019-02-05 complete Mental y, 45 04 d Health- minutes with [facility] patient [address], [phone] [phone] Office [place] [id number] SNOMED-CT () 2019-02-10 complete Mental other 6 d Health- outpatient Christian visit for [address], of an [place], established [id number] patient, [phone] which requires at least 2 of these 3 fall components: A problem focused history; A problem focused examination; Straightforw elza medical decision making. Counselin Comprehensiv [id number] SNOMED-CT () 2019-02-10 complete Mental e medication 0 d Health- services, [place] per [address] [place] [address], [id number] [phone] Psychotherap [id number] SNOMED-CT () 2019-02-24 complete Mental y, 45 04 d Health- minutes with [facility] patient [address], [phone] Encounters/Encounter Diagnoses Encounter Name Encounter Diagnosis Diagnosis Name Diagnosis Date of Service Code Code CodeSystem Diagnosis Delivery Location Psychotherapy - [id number] Schizoaffective SNOMED-CT 2019-02-24 Behavioral Individual 30 disorder, Health min Depressive type Clinic [address] [place] [address], [phone] Vital Signs No Information Social History Element Description Description Start End Code CodeSystem AdditionalInfo Date Date SexAssignedAtBirth Male 1991-0 M AdministrativeGender 5-18 Hospital Discharge Instructions Reason For Referral Medical Equipment FDA Assessments
--- NOTE | 2019-04-11 17:12 | ED ---
Throat Pain/Nasal Congestion - HPI Summary HPI Summary: 28-year-old male presents emergency department today complaining of bilateral ear congestion and fullness. Patient states he's had this ear fullness for approximately 2 weeks. He was recently seen and given Augmentin for otitis media on the left however he still feels his ears are congested and now he has similar feeling on the right ear. Patient denies fevers, chest pain, abdominal pain, shortness of breath, rash, ear drainage. Patient states he has associated difficulty hearing bilaterally with nasal congestion. Family history and surgical history noncontributory. - History of Current Complaint Chief Complaint: EDEarPain Time Seen by Provider: 04/11/19 17:11 Hx Obtained From: Patient Onset/Duration: Gradual Onset Severity: Moderate Cough: None - Allergies/Home Medications Allergies/Adverse Reactions: Allergies Allergy/AdvReac Type Severity Reaction Status Date / Time haloperidol [From Haldol] Allergy Intermediate See Comment Verified 01/16/19 14: 54 trazodone Allergy Hallucinati Verified 04/11/19 16:41 ons PMH/Surg Hx/FS Hx/Imm Hx Endocrine/Hematology History: Denies: Hx Anticoagulant Therapy, Hx Blood Disorders, Hx Diabetes Cardiovascular History: Denies: Hx Hypertension Respiratory History: Denies: Hx Asthma History: Denies: Hx Dialysis Sensory History: Denies: Hx Cataracts, Hx Contacts or Glasses, Hx Eye Injury, Hx Eye Prosthesis, Hx Glaucoma, Hx Deafness, Hx Hearing Aid Opthamlomology History: Denies: Hx Cataracts, Hx Contacts or Glasses, Hx Eye Injury, Hx Eye Prosthesis, Hx Glaucoma Neurological History: Denies: Hx Dementia Psychiatric History: Reports: Hx Depression, Hx Inpatient Treatment, Hx Community Mental Health Tx, Hx Schizophrenia, Hx Suicide Attempt, Hx Substance Abuse Denies: Hx Eating Disorder, Hx of Violent Episodes Against Others - Surgical History Surgery Procedure, Year, and Place: Patient reports past hx of knee injury, 2013. - Immunization History Date of Tetanus Vaccine: unk Date of Influenza Vaccine: unk Infectious Disease History: No Infectious Disease History: Reports: Hx Hepatitis - HEP C+ Denies: Traveled Outside the [place] in Last 30 Days - Family History Known Family History: Positive: Other - mental health disorders - Social History Alcohol Use: None Alcohol Amount: quit drinking Hx Substance Use: Yes Substance Use Type: Reports: None Substance Use Comment - Amount & Last Used: Patient using heroin or cocaine within the last 3 months Hx Tobacco Use: Yes Smoking Status (MU): Former Smoker Type: Cigarettes Have You Smoked in the Last Year: Yes Review of Systems Constitutional: Negative Eyes: Negative Positive: Ear Ache. Negative: Epistaxis, Dental Pain Cardiovascular: Negative Respiratory: Negative Gastrointestinal: Negative Genitourinary: Negative Musculoskeletal: Negative Skin: Negative Neurological: Negative Positive: Anxious All Other Systems Reviewed And Are Negative: Yes Physical Exam - Summary Physical Exam Summary: Inspection of the external auditory canal reveals no erythema or evidence of otitis externa. Tympanic membranes are pearly [place] with good cone of light in good position bilaterally. No evidence of fluid posterior to the TM. Patient has no tenderness to palpation of the sinuses. No evidence of trauma such as TM perforation. Triage Information Reviewed: Yes Vital Signs On Initial Exam: Initial Vitals Temp Pulse Resp BP Pulse Ox 98.3 F 86 19 121/79 95 04/11/19 16:38 04/11/19 16:38 04/11/19 16:38 04/11/19 16:38 04/11/19 16:38 Vital Signs Reviewed: Yes Appearance: Positive: Well-Appearing, No Pain Distress, Well-Nourished Skin: Positive: Warm, Skin Color Reflects Adequate Perfusion Eyes: Positive: EOMI, ANSELMO ENT: Positive: Hearing grossly normal, Pharynx normal, TMs normal Respiratory/Lung Sounds: Positive: Clear to Auscultation, Breath Sounds Present Cardiovascular: Positive: RRR, S1, S2 Musculoskeletal: Positive: Strength/ROM Intact Neurological: Positive: Sensory/Motor Intact, Alert, Oriented to Person Place, Time, Normal Gait, Speech Normal Psychiatric: Positive: Normal AVPU Assessment: Alert Procedures - Sedation Patient Received Moderate/Deep Sedation with Procedure: No Diagnostics - Vital Signs Vital Signs Temp Pulse Resp BP Pulse Ox 04/11/19 16:38 98.3 F 86 19 121/79 95 - Laboratory Lab Statement: Any lab studies that have been ordered have been reviewed, and results considered in the medical decision making process. EENT Course/Dx - Course Course Of Treatment: Patient was evaluated in the emergency department today for bilateral ear pain and fullness. Patient seen and examined his vitals are stable he is afebrile. Patient was given Flonase for nasal congestion due to probable eustachian tube dysfunction. Patient is to use Flonase and follow-up with Dr. Marquis as an outpatient in 5 days for further evaluation and management and possible referral to ENT. - Differential Diagnoses Differential Diagnoses: Cerumen Impaction, Otitis Externa, Otitis Media - Diagnoses Provider Diagnoses: Ear pain Discharge ED - Sign-Out/Discharge Documenting (check all that apply): Patient Departure - Discharge Plan Condition: Stable Disposition: HOME Patient Education Materials: Earache (ED) Referrals: Brian Marquis MD [Primary Care Provider] - 3 Days Additional Instructions: You were seen in the emergency department today due to ear pain. It is likely your symptoms are due to sinus congestion. To treat this please use flonase spray in both nostrils, 2 sprays daily for 1 week. Please follow up with doctor Benitez for further evaluation. If you develop any new or worsening symptoms please return to the ER. - Billing Disposition and Condition Condition: STABLE Disposition: Home
[2019-04-11] MEDS ORDERED: Fluticasone NASAL SPRAY 50MCG* 16 gm SPRAY BTL BOTH NARES ONE (17:25)
[2019-04-11 17:39] VITALS: BP 120/75
== END 2019-04-11 17:38 | disposition home or self-care (01) ==
LOC: ED 16:36
DX: H92.03 Otalgia, bilateral (principal); F32.9 Major depressive disorder, single episode, unspecified; Z87.891 Personal history of nicotine dependence; Z88.8 Allergy status to other drugs, medicaments and biological substances
CPT/HCPCS: 99281

== ENCOUNTER 2020-03-07 13:17 | Inpatient (IN) ==
[2020-03-07 13:54] LABS: ABS Basophils 0.1 10^3/ul (0-0.2); ABS Lymphocytes 1.9 10^3/ul (1.0-4.8); ABS Monocytes 0.5 10^3/ul (0-0.8); ABS Neutrophils 5.2 10^3/ul (1.5-7.7); Eosinophil % 0.6 %; Hematocrit 48 % (42-52); Hemoglobin 16.4 g/dL (14.0-18.0); Mean Corpuscular HGB Conc 34 g/dL (31-36); Mean Corpuscular Hemoglobin 29 pg (27-31); Mean Corpuscular Volume 85 fL (80-94); Mean Platelet Volume 7.6 fL (7.4-10.4); Platelet Count 291 10^3/uL (150-450); Red Blood Count 5.59 10^6 /uL (4.18-5.48); Red Cell Distribution Width 13 % (10-15); White Blood Count 7.8 10^3/uL (3.5-10.8)
[2020-03-07 14:18] LABS: ALT 86 U/L (7-52); AST 36 U/L (13-39); Albumin 4.8 g/dL (3.2-5.2); Albumin/Globulin Ratio 1.4 (1-3); Alkaline Phosphatase 76 U/L (34-104); Anion Gap 10 mmol/L (2-11); BUN/Creatinine Ratio 23.7 (8-20); Blood Urea Nitrogen 22 mg/dL (6-24); CO2 Carbon Dioxide 23 mmol/L (22-32); Calcium 9.5 mg/dL (8.6-10.3); Chloride 108 mmol/L (101-111); EGFR African American 117.1 (>60); EGFR Non-African American 96.7 (>60); Globulin 3.4 g/dL (2-4); Glucose 90 mg/dL (70-100); Sodium 141 mmol/L (135-145); Total Protein 8.2 g/dL (6.4-8.9)
[2020-03-07 14:25] LABS: Urine Appearance Cloudy; Urine Bilirubin Negative (Negative); Urine Blood Negative (Negative); Urine Color Yellow; Urine Glucose Negative (Negative); Urine Ketones Trace (Negative); Urine Nitrite Negative (Negative); Urine Protein 1+(30 mg/dL) (Negative); Urine Specific Gravity 1.031 (1.010-1.030); Urine Urobilinogen Negative (Negative)
[2020-03-07 14:29] LABS: Urine Bacteria Absent (Absent); Urine Red Blood Cell Absent (Absent); Urine Squamous Epithelial Cell Present (Absent); Urine White Blood Cell Absent (Absent)
[2020-03-07 14:32] LABS: Acetaminophen < 15 mcg/mL; Alcohol, S < 10 mg/dL (<10); Salicylate < 2.50 mg/dL (<30)
[2020-03-07 14:39] LABS: Urine Benzodiazepine Screen None Detected (None Detect); Urine Cannabinoids Screen None Detected (None Detect); Urine Opiates Screen None Detected (None Detect)
[2020-03-07 14:47] LABS: TSH Ultra Thyroid Stim Horm 2.81 mcIU/mL (0.34-5.60)
[2020-03-07] MEDS ORDERED: Al Hydrox/Mg Hydrox/Simet LIQ 30 ML UDC PO PRN (23:51)
[2020-03-08] MEDS: Vitamin THERAPEUTIC TAB PO SCH (13:37)
[2020-03-08] MEDS: risperiDONE-M 1 mg Oradis TAB PO SCH (20:21)
[2020-03-09 09:06] LABS: HDL Cholesterol 31.9 mg/dL
[2020-03-09] MEDS: Vitamin THERAPEUTIC TAB PO SCH (10:38)
[2020-03-09] MEDS: risperiDONE-M 1 mg Oradis TAB PO SCH (20:19)
[2020-03-10] MEDS: Vitamin THERAPEUTIC TAB PO SCH (09:41)
[2020-03-10] MEDS: risperiDONE-M 1 mg Oradis TAB PO SCH (22:00)
[2020-03-11] MEDS: Vitamin THERAPEUTIC TAB PO SCH (07:39)
[2020-03-11] MEDS: risperiDONE-M 1 mg Oradis TAB PO SCH (21:12)
[2020-03-12] MEDS: Vitamin THERAPEUTIC TAB PO SCH (08:29)
[2020-03-12] MEDS: risperiDONE-M 1 mg Oradis TAB PO SCH (21:57)
[2020-03-13] MEDS: Vitamin THERAPEUTIC TAB PO SCH (09:29)
[2020-03-13] MEDS: risperiDONE-M 1 mg Oradis TAB PO SCH (22:12)
[2020-03-14] MEDS: Vitamin THERAPEUTIC TAB PO SCH (09:37)
[2020-03-14] MEDS: risperiDONE-M 1 mg Oradis TAB PO SCH (23:13)
[2020-03-15] MEDS: Vitamin THERAPEUTIC TAB PO SCH (10:48)
[2020-03-15] MEDS: risperiDONE-M 1 mg Oradis TAB PO SCH (20:14)
[2020-03-16] MEDS: Vitamin THERAPEUTIC TAB PO SCH (14:18)
[2020-03-16] MEDS: risperiDONE-M 1 mg Oradis TAB PO SCH (20:50)
[2020-03-17] MEDS: Vitamin THERAPEUTIC TAB PO SCH (07:59)
[2020-03-17] MEDS: risperiDONE-M 1 mg Oradis TAB PO SCH (20:51)
[2020-03-18] MEDS: Vitamin THERAPEUTIC TAB PO SCH (08:43)
[2020-03-18] MEDS: risperiDONE-M 1 mg Oradis TAB PO SCH (19:58)
[2020-03-19] MEDS: Vitamin THERAPEUTIC TAB PO SCH (09:38)
[2020-03-19] MEDS: risperiDONE-M 1 mg Oradis TAB PO SCH (21:19)
[2020-03-20] MEDS: Vitamin THERAPEUTIC TAB PO SCH (07:45)
[2020-03-20] MEDS: risperiDONE-M 1 mg Oradis TAB PO SCH (21:28)
[2020-03-21] MEDS: Vitamin THERAPEUTIC TAB PO SCH (10:53)
[2020-03-21] MEDS: risperiDONE-M 1 mg Oradis TAB PO SCH (21:08)
[2020-03-22] MEDS: Vitamin THERAPEUTIC TAB PO SCH (12:56)
[2020-03-22] MEDS: risperiDONE-M 1 mg Oradis TAB PO SCH (22:11)
[2020-03-23] MEDS: Vitamin THERAPEUTIC TAB PO SCH (08:45)
[2020-03-24] MEDS: Vitamin THERAPEUTIC TAB PO SCH (10:13)
[2020-03-25] MEDS: Vitamin THERAPEUTIC TAB PO SCH (10:21)
[2020-03-26] MEDS: Vitamin THERAPEUTIC TAB PO SCH (09:20)
[2020-03-27] MEDS: Vitamin THERAPEUTIC TAB PO SCH (10:18)
[2020-03-28] MEDS: Vitamin THERAPEUTIC TAB PO SCH (11:51)
[2020-03-29] MEDS: Vitamin THERAPEUTIC TAB PO SCH (12:37)
[2020-03-30] MEDS: Vitamin THERAPEUTIC TAB PO SCH (12:12)
[2020-03-31] MEDS ORDERED: Senna TAB 8.6 mg TAB PO PRN (11:49)
[2020-03-31] MEDS ORDERED: Polyethylene Glycol 3350 17 GM PACKET PO PRN (11:49)
[2020-03-31 13:14] LABS: ABS Eosinophils 0.1 10^3/ul (0-0.6); ABS Lymphocytes 1.9 10^3/ul (1.0-4.8); ABS Monocytes 0.3 10^3/ul (0-0.8); ABS Neutrophils 3.2 10^3/ul (1.5-7.7); Hematocrit 43 % (42-52); Hemoglobin 15.1 g/dL (14.0-18.0); Lymphocyte % 34.6 %; Mean Corpuscular HGB Conc 35 g/dL (31-36); Mean Corpuscular Hemoglobin 29 pg (27-31); Mean Corpuscular Volume 83 fL (80-94); Nucleated Red Blood Cells % 0.1; Platelet Count 252 10^3/uL (150-450); Red Cell Distribution Width 13 % (10-15); White Blood Count 5.6 10^3/uL (3.5-10.8)
[2020-03-31] MEDS: Vitamin THERAPEUTIC TAB PO SCH (13:53)
[2020-04-01] MEDS: Vitamin THERAPEUTIC TAB PO SCH (09:32)
[2020-04-02] MEDS: Vitamin THERAPEUTIC TAB PO SCH (08:00)
[2020-04-03] MEDS: Vitamin THERAPEUTIC TAB PO SCH (09:33)
[2020-04-04] MEDS: Vitamin THERAPEUTIC TAB PO SCH (09:52)
[2020-04-05] MEDS: Vitamin THERAPEUTIC TAB PO SCH (09:10)
[2020-04-06 09:32] LABS: ABS Basophils 0.1 10^3/ul (0-0.2); ABS Eosinophils 0.2 10^3/ul (0-0.6); ABS Lymphocytes 1.8 10^3/ul (1.0-4.8); ABS Monocytes 0.7 10^3/ul (0-0.8); ABS Neutrophils 4.1 10^3/ul (1.5-7.7); Eosinophil % 2.8 %; Hematocrit 44 % (42-52); Hemoglobin 15.2 g/dL (14.0-18.0); Lymphocyte % 25.8 %; Mean Corpuscular HGB Conc 35 g/dL (31-36); Mean Corpuscular Hemoglobin 29 pg (27-31); Mean Corpuscular Volume 83 fL (80-94); Mean Platelet Volume 7.4 fL (7.4-10.4); Platelet Count 298 10^3/uL (150-450); Red Blood Count 5.24 10^6 /uL (4.18-5.48); Red Cell Distribution Width 13 % (10-15); White Blood Count 6.8 10^3/uL (3.5-10.8)
[2020-04-06] MEDS: Vitamin THERAPEUTIC TAB PO SCH (10:29)
[2020-04-07] MEDS: Vitamin THERAPEUTIC TAB PO SCH (08:26)
[2020-04-08] MEDS: Vitamin THERAPEUTIC TAB PO SCH (09:30)
[2020-04-09] MEDS: Vitamin THERAPEUTIC TAB PO SCH (09:50)
[2020-04-10] MEDS: Vitamin THERAPEUTIC TAB PO SCH ×2 (09:44→09:45)
[2020-04-11] MEDS: Vitamin THERAPEUTIC TAB PO SCH ×2 (08:40→08:41)
[2020-04-12] MEDS: Vitamin THERAPEUTIC TAB PO SCH (07:14)
[2020-04-12 08:49] VITALS: BP 114/67
[2020-04-12 11:10] LABS: ABS Eosinophils 0.1 10^3/ul (0-0.6); ABS Lymphocytes 2.6 10^3/ul (1.0-4.8); ABS Monocytes 0.6 10^3/ul (0-0.8); ABS Neutrophils 5.1 10^3/ul (1.5-7.7); Eosinophil % 1.3 %; Hematocrit 43 % (42-52); Hemoglobin 15.1 g/dL (14.0-18.0); Lymphocyte % 30.8 %; Mean Corpuscular HGB Conc 35 g/dL (31-36); Mean Corpuscular Hemoglobin 29 pg (27-31); Mean Corpuscular Volume 83 fL (80-94); Mean Platelet Volume 7.6 fL (7.4-10.4); Platelet Count 321 10^3/uL (150-450); Red Blood Count 5.22 10^6 /uL (4.18-5.48); Red Cell Distribution Width 13 % (10-15); White Blood Count 8.5 10^3/uL (3.5-10.8)
== END 2020-04-12 11:40 | DRG 750 ==
LOC: ED 13:17 → BSU 20:34
PROVIDERS: ADMIT Psychiatry & Neurology Psychiatry; ATTEND Psychiatry & Neurology Psychiatry

== ENCOUNTER 2020-06-07 15:33 | Inpatient (IN) ==
[2020-06-07 16:00] LABS: ABS Basophils 0.1 10^3/ul (0-0.2); ABS Monocytes 0.6 10^3/ul (0-0.8); ABS Neutrophils 5.1 10^3/ul (1.5-7.7); Eosinophil % 0.6 %; Hematocrit 42 % (42-52); Hemoglobin 14.3 g/dL (14.0-18.0); Lymphocyte % 25.8 %; Mean Corpuscular HGB Conc 34 g/dL (31-36); Mean Corpuscular Hemoglobin 29 pg (27-31); Mean Corpuscular Volume 83 fL (80-94); Mean Platelet Volume 9.7 fL (7.4-10.4); Platelet Count 216 10^3/uL (150-450); Red Blood Count 4.99 10^6 /uL (4.18-5.48); Red Cell Distribution Width 13 % (10-15); White Blood Count 7.9 10^3/uL (3.5-10.8)
[2020-06-07] MEDS ORDERED: Midazolam 2 mg/2 ml VIAL 1 mg/ml 2 ml VIAL (2 mg) IM ONE (16:08)
[2020-06-07 16:17] LABS: ALT 35 U/L (7-52); AST 23 U/L (13-39); Albumin 4.2 g/dL (3.2-5.2); Albumin/Globulin Ratio 1.6 (1-3); Alkaline Phosphatase 58 U/L (34-104); Anion Gap 10 mmol/L (2-11); BUN/Creatinine Ratio 17.7 (8-20); Blood Urea Nitrogen 14 mg/dL (6-24); CO2 Carbon Dioxide 20 mmol/L (22-32); Calcium 8.9 mg/dL (8.6-10.3); Chloride 107 mmol/L (101-111); EGFR African American 141.3 (>60); EGFR Non-African American 116.8 (>60); Globulin 2.7 g/dL (2-4); Glucose 84 mg/dL (70-100); Potassium 3.6 mmol/L (3.5-5.0); Sodium 137 mmol/L (135-145); Total Protein 6.9 g/dL (6.4-8.9)
[2020-06-07 16:28] LABS: Urine Appearance Cloudy; Urine Bilirubin Negative (Negative); Urine Blood Negative (Negative); Urine Color Amber; Urine Glucose Negative (Negative); Urine Ketones 2+ (Negative); Urine Nitrite Negative (Negative); Urine Protein 1+(30 mg/dL) (Negative); Urine Specific Gravity 1.032 (1.010-1.030); Urine Urobilinogen Negative (Negative)
[2020-06-07 16:29] LABS: Urine Bacteria Absent (Absent); Urine Red Blood Cell Trace(0-2/hpf) (Absent); Urine Squamous Epithelial Cell Present (Absent); Urine White Blood Cell Trace(0-5/hpf) (Absent)
[2020-06-07 16:44] LABS: Acetaminophen < 15 mcg/mL; Alcohol, S < 10 mg/dL (<10); Salicylate < 2.50 mg/dL (<30)
[2020-06-07 16:45] LABS: Urine Benzodiazepine Screen None Detected (None Detect); Urine Cannabinoids Screen None Detected (None Detect); Urine Opiates Screen None Detected (None Detect)
[2020-06-07 16:58] LABS: TSH Ultra Thyroid Stim Horm 1.57 mcIU/mL (0.34-5.60)
[2020-06-08] MEDS ORDERED: Al Hydrox/Mg Hydrox/Simet LIQ 30 ML UDC PO PRN (04:16)
[2020-06-08] MEDS: Vitamin THERAPEUTIC TAB PO SCH (08:21)
[2020-06-09 08:08] LABS: HDL Cholesterol 33.3 mg/dL
[2020-06-09] MEDS: Vitamin THERAPEUTIC TAB PO SCH ×2 (09:48→10:10)
[2020-06-09] MEDS ORDERED: Polyethylene Glycol 3350 17 GM PACKET PO PRN (15:18)
[2020-06-09] MEDS ORDERED: Senna TAB 8.6 mg TAB PO PRN (15:18)
[2020-06-10] MEDS: Vitamin THERAPEUTIC TAB PO SCH (09:07)
[2020-06-11] MEDS: Vitamin THERAPEUTIC TAB PO SCH (08:20)
[2020-06-12] MEDS: Vitamin THERAPEUTIC TAB PO SCH (09:41)
[2020-06-13] MEDS: Vitamin THERAPEUTIC TAB PO SCH (08:27)
[2020-06-14] MEDS: Vitamin THERAPEUTIC TAB PO SCH (08:20)
[2020-06-14 08:31] LABS: ABS Basophils 0.1 10^3/ul (0-0.2); ABS Eosinophils 0.2 10^3/ul (0-0.6); ABS Lymphocytes 1.7 10^3/ul (1.0-4.8); ABS Monocytes 0.3 10^3/ul (0-0.8); ABS Neutrophils 2.5 10^3/ul (1.5-7.7); Eosinophil % 3.4 %; Hematocrit 43 % (42-52); Hemoglobin 14.8 g/dL (14.0-18.0); Lymphocyte % 36.2 %; Mean Corpuscular HGB Conc 34 g/dL (31-36); Mean Corpuscular Hemoglobin 29 pg (27-31); Mean Corpuscular Volume 84 fL (80-94); Mean Platelet Volume 9.6 fL (7.4-10.4); Platelet Count 188 10^3/uL (150-450); Red Blood Count 5.14 10^6 /uL (4.18-5.48); Red Cell Distribution Width 14 % (10-15); White Blood Count 4.7 10^3/uL (3.5-10.8)
[2020-06-15] MEDS: Vitamin THERAPEUTIC TAB PO SCH (11:18)
[2020-06-16] MEDS: Vitamin THERAPEUTIC TAB PO SCH (07:50)
[2020-06-17] MEDS: Vitamin THERAPEUTIC TAB PO SCH (13:20)
[2020-06-18] MEDS: Vitamin THERAPEUTIC TAB PO SCH (08:41)
[2020-06-19] MEDS: Vitamin THERAPEUTIC TAB PO SCH (08:07)
[2020-06-20] MEDS: Vitamin THERAPEUTIC TAB PO SCH (08:02)
[2020-06-21] MEDS: Vitamin THERAPEUTIC TAB PO SCH (09:46)
[2020-06-21 12:47] LABS: ABS Eosinophils 0.2 10^3/ul (0-0.6); ABS Lymphocytes 1.7 10^3/ul (1.0-4.8); ABS Monocytes 0.7 10^3/ul (0-0.8); ABS Neutrophils 4.8 10^3/ul (1.5-7.7); Eosinophil % 2.3 %; Hematocrit 42 % (42-52); Hemoglobin 14.4 g/dL (14.0-18.0); Lymphocyte % 23.6 %; Mean Corpuscular HGB Conc 34 g/dL (31-36); Mean Corpuscular Hemoglobin 29 pg (27-31); Mean Corpuscular Volume 84 fL (80-94); Mean Platelet Volume 7.8 fL (7.4-10.4); Platelet Count 223 10^3/uL (150-450); Red Blood Count 4.98 10^6 /uL (4.18-5.48); Red Cell Distribution Width 14 % (10-15); White Blood Count 7.4 10^3/uL (3.5-10.8)
[2020-06-21 23:09] LABS: HIV 4th Generation Nonreactive (Nonreactive)
[2020-06-22 08:16] VITALS: BP 109/71
[2020-06-22] MEDS: Vitamin THERAPEUTIC TAB PO SCH (08:33)
== END 2020-06-22 10:50 | disposition home or self-care (01) | DRG 750 ==
LOC: ED 15:33 → BSU 22:27
PROVIDERS: ADMIT Psychiatry & Neurology Psychiatry; ATTEND Psychiatry & Neurology Psychiatry

== ENCOUNTER 2021-01-20 14:59 | Inpatient (IN) ==
[2021-01-20 16:09] LABS: Urine Appearance Clear; Urine Bilirubin Negative (Negative); Urine Blood Negative (Negative); Urine Color Yellow; Urine Glucose Negative (Negative); Urine Ketones 1+ (Negative); Urine Nitrite Negative (Negative); Urine Protein Negative (Negative); Urine Specific Gravity 1.016 (1.002-1.030); Urine Urobilinogen Negative (Negative)
[2021-01-20 16:43] LABS: ABS Eosinophils 0.1 10^3/ul (0-0.6); ABS Lymphocytes 1.5 10^3/ul (1.0-4.8); ABS Monocytes 0.4 10^3/ul (0-0.8); ABS Neutrophils 3.7 10^3/ul (1.5-7.7); Eosinophil % 0.9 %; Hematocrit 40 % (42-52); Lymphocyte % 26.5 %; Mean Corpuscular HGB Conc 35 g/dL (31-36); Mean Corpuscular Hemoglobin 29 pg (27-31); Mean Corpuscular Volume 83 fL (80-94); Mean Platelet Volume 8.4 fL (7.4-10.4); Nucleated Red Blood Cells % 0.1; Platelet Count 215 10^3/uL (150-450); Red Blood Count 4.84 10^6 /uL (4.18-5.48); Red Cell Distribution Width 13 % (10-15); White Blood Count 5.6 10^3/uL (3.5-10.8)
[2021-01-20 16:43] LABS: Urine Benzodiazepine Screen None Detected (None Detect); Urine Cannabinoids Screen None Detected (None Detect); Urine Opiates Screen None Detected (None Detect)
[2021-01-20 16:52] LABS: ALT 28 U/L (7-52); AST 17 U/L (13-39); Albumin 4.4 g/dL (3.2-5.2); Albumin/Globulin Ratio 1.5 (1-3); Alkaline Phosphatase 66 U/L (35-149); Anion Gap 7 mmol/L (2-11); Blood Urea Nitrogen 16 mg/dL (6-24); CO2 Carbon Dioxide 25 mmol/L (22-32); Calcium 9.6 mg/dL (8.6-10.3); Chloride 107 mmol/L (101-111); Globulin 2.9 g/dL (2-4); Glucose 91 mg/dL (70-100); Potassium 3.5 mmol/L (3.5-5.0); Sodium 139 mmol/L (135-145); Total Protein 7.3 g/dL (6.4-8.9)
[2021-01-20 17:26] LABS: Acetaminophen < 15 mcg/mL; Alcohol, S < 13 mg/dL (<13); Salicylate < 2.50 mg/dL (<30)
[2021-01-20 17:38] LABS: TSH Ultra Thyroid Stim Horm 2.61 mcIU/mL (0.34-5.60)
[2021-01-21 06:37] LABS: Rapid COVID-19 Molecular Undetected (Undetected)
[2021-01-21] MEDS: Vitamin THERAPEUTIC TAB PO SCH ×2 (10:28→11:41)
[2021-01-22] MEDS: Vitamin THERAPEUTIC TAB PO SCH (07:38)
[2021-01-22 08:24] LABS: HDL Cholesterol 35.4 mg/dL
[2021-01-22 13:01] LABS: HIV 4th Generation Nonreactive (Nonreactive)
[2021-01-22] MEDS: Al Hydrox/Mg Hydrox/Simet LIQ 30 ML UDC PO PRN (20:29)
[2021-01-23] MEDS: Vitamin THERAPEUTIC TAB PO SCH (07:27)
[2021-01-23] MEDS: Al Hydrox/Mg Hydrox/Simet LIQ 30 ML UDC PO PRN (12:47)
[2021-01-23 13:13] LABS: Chlamydia trachomatis NAA Negative (Negative); Neisseria gonorrhoeae (GC) NAA Negative (Negative)
[2021-01-24] MEDS: Vitamin THERAPEUTIC TAB PO SCH (07:24)
[2021-01-24] MEDS: Al Hydrox/Mg Hydrox/Simet LIQ 30 ML UDC PO PRN ×2 (11:21→17:38)
[2021-01-25] MEDS: Vitamin THERAPEUTIC TAB PO SCH (08:00)
[2021-01-25] MEDS: Al Hydrox/Mg Hydrox/Simet LIQ 30 ML UDC PO PRN ×2 (09:30→18:28)
[2021-01-26] MEDS: Vitamin THERAPEUTIC TAB PO SCH (08:03)
[2021-01-26] MEDS: Al Hydrox/Mg Hydrox/Simet LIQ 30 ML UDC PO PRN ×2 (09:50→18:51)
[2021-01-27 04:35] LABS: Clozapine 329 ng/mL (350-600); Clozapine & Norclozapine Level 505 ng/mL; Norclozapine 176 ng/mL
[2021-01-27] MEDS: Vitamin THERAPEUTIC TAB PO SCH (08:11)
[2021-01-27] MEDS: Al Hydrox/Mg Hydrox/Simet LIQ 30 ML UDC PO PRN ×2 (09:16→20:38)
[2021-01-27 11:36] LABS: ABS Lymphocytes 1.2 10^3/ul (1.0-4.8); ABS Monocytes 0.5 10^3/ul (0-0.8); ABS Neutrophils 4.6 10^3/ul (1.5-7.7); Eosinophil % 0.6 %; Hematocrit 44 % (42-52); Hemoglobin 15.4 g/dL (14.0-18.0); Lymphocyte % 19.5 %; Mean Corpuscular HGB Conc 35 g/dL (31-36); Mean Corpuscular Hemoglobin 29 pg (27-31); Mean Corpuscular Volume 82 fL (80-94); Nucleated Red Blood Cells % 0.1; Platelet Count 228 10^3/uL (150-450); Red Cell Distribution Width 13 % (10-15); White Blood Count 6.3 10^3/uL (3.5-10.8)
[2021-01-28] MEDS: Vitamin THERAPEUTIC TAB PO SCH (08:22)
[2021-01-29] MEDS: Vitamin THERAPEUTIC TAB PO SCH (07:55)
[2021-01-30] MEDS: Vitamin THERAPEUTIC TAB PO SCH (08:29)
[2021-01-31] MEDS: Vitamin THERAPEUTIC TAB PO SCH (08:08)
[2021-01-31] MEDS: Al Hydrox/Mg Hydrox/Simet LIQ 30 ML UDC PO PRN ×2 (11:10→18:32)
[2021-02-01] MEDS: Vitamin THERAPEUTIC TAB PO SCH (09:12)
[2021-02-02] MEDS: Vitamin THERAPEUTIC TAB PO SCH (08:12)
[2021-02-03] MEDS: Vitamin THERAPEUTIC TAB PO SCH (08:37)
[2021-02-03 15:02] LABS: ABS Lymphocytes 1.5 10^3/ul (1.0-4.8); ABS Monocytes 0.3 10^3/ul (0-0.8); ABS Neutrophils 4.2 10^3/ul (1.5-7.7); Eosinophil % 0.6 %; Hematocrit 43 % (42-52); Hemoglobin 15.3 g/dL (14.0-18.0); Lymphocyte % 24.7 %; Mean Corpuscular HGB Conc 36 g/dL (31-36); Mean Corpuscular Hemoglobin 30 pg (27-31); Mean Corpuscular Volume 84 fL (80-94); Mean Platelet Volume 8.2 fL (7.4-10.4); Platelet Count 223 10^3/uL (150-450); Red Blood Count 5.15 10^6 /uL (4.18-5.48); Red Cell Distribution Width 13 % (10-15); White Blood Count 6.2 10^3/uL (3.5-10.8)
[2021-02-04] MEDS: Vitamin THERAPEUTIC TAB PO SCH (07:34)
[2021-02-05] MEDS: Vitamin THERAPEUTIC TAB PO SCH (07:33)
[2021-02-06] MEDS: Vitamin THERAPEUTIC TAB PO SCH (08:01)
[2021-02-07] MEDS: Vitamin THERAPEUTIC TAB PO SCH (07:39)
[2021-02-08] MEDS: Vitamin THERAPEUTIC TAB PO SCH (07:56)
[2021-02-08 10:40] VITALS: BP 125/82
== END 2021-02-08 14:02 | disposition home or self-care (01) | DRG 750 ==
LOC: ED 14:59 → BSU 01-21 06:27
PROVIDERS: ADMIT Psychiatry & Neurology Psychiatry; ATTEND Psychiatry & Neurology Psychiatry